=== PATIENT | female | born 1935 | race Caucasian/White ===

== ENCOUNTER 2016-11-18 18:20 | Inpatient (IN) | payer MEDICARE, OTHER ==
[~2016-11-18] VITALS: Ht 154.9 cm; Wt 56.1 kg
[2016-11-18] VITALS (7 sets, daily range): BP systolic 102–154; BP diastolic 55–86; PULSE 100–127; RESP 20–30; TEMP 97.9; O2SAT 93–100
[~2016-11-18 18:20] MED LIST: ADVA100A INH; ESTR2TAB PO; MULT-6 PO; PRESCAP5 PO; TUMS500C CHEW
--- NOTE | 2016-11-18 18:30 | PD ---
HPI Chief Complaint: shortness of breath Time Seen by Provider: 18:27 Travel History International Travel<30 days: No Contact w/Intl Traveler<30days: No History of Present Illness HPI This is a patient who has a history of COPD who is not on oxygen who presents to the emergency department with increasing shortness of breath that started abruptly this afternoon. She says she's had several exacerbations over the past year and last her she had [place]. She denies any recent fevers, chills or cold symptoms. She denies any chest pain. She is emphatic that if she were to deteriorate she would not want to be on a breathing machine or resuscitated and would want to be let naturally if she were to deteriorate. PFSH Past Medical History Cancer: No Diabetes: No Glaucoma: No Hepatitis: No Hiatal Hernia: No Hypertension: No Thyroid Disease: No Past Surgical History Abdominal Surgery: Yes (AILYN. 2000) Cardiac Surgery: No Ear Surgery: No Endocrine Surgery: No Eye Surgery: Yes (CAT. LEFT EYE) Genitourinary Surgery: No Gynecologic Surgery: Yes (HYSTERECTOMY 1974) Oral Surgery: Yes (TONSILLS) Pacemaker: No Thoracic Surgery: Yes (RIGHT BREAST BX) Social History Alcohol Use: Yes (2 DRINKS A WEEK [facility]) Tobacco Use: Yes (QUIT 1992) Allergies-Medications (Allergen,Severity, Reaction): Coded Allergies: Codeine (Verified Allergy, Severe, NAUSEA/VOMITTING, 11/18/16) Darvon (Verified Allergy, Severe, N/V, 11/18/16) Demerol (Verified Allergy, Severe, N/V, 11/18/16) Flagyl (Verified Allergy, Severe, RASH, 11/18/16) Reported Meds & Prescriptions Reported Meds & Active Scripts Active Reported Tums (Calcium Carbonate (Antacid)) 500 Mg Chew 500 Mg CHEW PRN Estradiol 2 Mg Tab 2 Mg PO DAILY Advair Diskus Inh (Fluticasone-Salmeterol Inh) 100-50 Mcg/Blist Aer 1 Puff INH BID Rinse mouth after use. Preservision Areds 2 (Multiple Vitamins W/ Minerals) 1 Cap 1 Cap PO DAILY Centrum (Multiple Vitamins W/ Minerals) 1 Tab 1 Tab PO DAILY Review of Systems Except as stated in HPI: all other systems reviewed are Neg Physical Exam Narrative GENERAL: Severe respiratory distress. SKIN: Diaphoretic HEAD: Atraumatic. Normocephalic. EYES: Pupils equal and round. No injection or drainage. ENT: Moist mucous membranes NECK: Trachea midline. CARDIOVASCULAR: Regular rate and rhythm. No murmur appreciated. RESPIRATORY: Diminished air movement bilaterally, accessory muscle use, increased work of breathing GASTROINTESTINAL: Abdomen soft, non-tender, nondistended. MUSCULOSKELETAL: No obvious deformities. NEUROLOGICAL: Awake and alert. No obvious cranial nerve deficits. Moving All extremities. PSYCHIATRIC: Appropriate mood and affect; insight and judgment normal. Data Data Last Documented VS Vital Signs Date Time Temp Pulse Resp B/P Pulse Ox O2 Delivery O2 Flow Rate FiO2 11/18/16 18:35 28 98 BiPAP 45 11/18/16 18:20 97.9 127 154/86 Orders Complete Blood Count With Diff (11/18/16 18:25) Basic Metabolic Panel (Bmp) (11/18/16 18:25) Ckmb (Isoenzyme) Profile (11/18/16 18:25) Troponin I (11/18/16 18:25) Prothrombin Time / Inr (Pt) (11/18/16 18:25) Act Partial Throm Time (Ptt) (11/18/16 18:25) Magnesium (Mg) (11/18/16 18:25) Chest, Single Ap (11/18/16 18:25) Iv Access Insert/Monitor (11/18/16 18:25) Ecg Monitoring (11/18/16 18:25) Oxygen Administration (11/18/16 18:25) Oximetry (11/18/16 18:25) Albuterol-Ipratropium Neb (Duoneb Neb) (11/18/16 18:30) Arterial Blood Gas (Abg) (11/18/16 ) D-Dimer (11/18/16 18:36) B-Type Natriuretic Peptide (11/18/16 18:36) MDM Medical Decision Making Medical Screen Exam Complete: Yes Emergency Medical Condition: Yes Interpretation(s) Afebrile, tachycardic, tachypneic, hypertensive Differential Diagnosis COPD exacerbation, pneumonia, congestive heart failure, pulmonary embolism Narrative Course This is a 80-year-old female with a history of COPD who parents to the emergency department in severe respiratory distress. She is using accessory muscles, unable to breathe, diaphoretic in extremis. She refuses to be intubated. She was laced on a monitor and an IV was established. BiPAP was initiated. Patient had impressive improvement within first 15 minutes on BiPAP and was able to speak much more comfortably. Labs are pending. Patient should be admitted for respiratory management pending diagnostic studies. She did receive methylprednisolone and serial DuoNeb's in route with EMS. Critical Care Narrative Aggregate critical care time was 35 minutes. Time to perform other separately billable procedures was not included in the critical care time. My time did not include minutes spent treating any other patients simultaneously or on activities that did not directly contribute to the patient's treatment. The services I provided to this patient were to treat and/or prevent clinically significant deterioration that could result in: Disability, I provided critical care services requiring my management, as noted below: Chart data review, documentation time, medication orders and management, vital sign assessments/reviewing monitor data, ordering and reviewing lab tests, ordering and interpreting/reviewing x-rays and diagnostic studies, care of the patient and discussion of the patient with the admitting physicians. Mary Beth Benavides MD Nov 18, 2016 18:30
[2016-11-18 18:57] LABS: AUTOMATED NEUTROPHIL # 33.7 TH/MM3 (1.8-7.7); BASOPHIL # 0.2 TH/MM3 (0-0.2); BASOPHIL % 0.4 % (0.0-2.0); EOSINOPHIL # 0.1 TH/MM3 (0-0.4); EOSINOPHIL % 0.3 % (0.0-4.0); HEMATOCRIT 37.8 % (35.0-46.0); MEAN CELL VOLUME 61.9 FL (80.0-100.0); MEAN CORPUSCULAR HEMOGLOBIN 19.2 PG (27.0-34.0); MEAN CORPUSCULAR HGB CONC 31.1 % (32.0-36.0); MONO % 6.5 % (0.0-8.0); NEUT % 78.8 % (16.0-70.0); PLATELET COUNT 467 TH/MM3 (150-450); RED CELL DISTRIBUTION WIDTH 17.3 % (11.6-17.2); WHITE BLOOD COUNT 42.7 TH/MM3 (4.0-11.0)
[2016-11-18] MEDS: RESP: ALBUTEROL 2.5 MG/IPRATROPIUM 0.5 MG NEB (SCH) INH (19:02)
[2016-11-18 19:06] LABS: APTT (PATIENT) 26.2 SEC (24.3-30.1); PROTHROMBIN TIME - PATIENT 11.4 SEC (9.8-11.6)
--- NOTE | 2016-11-18 19:09 | RADRPT ---
EXAM DATE/TIME: 11/18/2016 18:46 [facility] COMPARISON: No previous studies available for comparison. INDICATIONS : Shortness of breath for 6 hours MEDICAL HISTORY : Chronic obstructive pulmonary disease. Asthma SURGICAL HISTORY : None. ENCOUNTER: Initial ACUITY: 1 day PAIN SCORE: 0/10 LOCATION: Bilateral chest FINDINGS: The lungs are clear without infiltrate, nodule, or mass. There is no appreciable pleural effusion fo r technique. Heart and mediastinum are unremarkable. CONCLUSION: No acute cardiopulmonary disease. Anuj Stoddard MD on November 18, 2016 at 19:07 Board Certified Radiologist. This report was verified electronically.
[2016-11-18] MEDS ORDERED: ADVA100A INH (19:22)
[2016-11-18] MEDS ORDERED: PRESCAP5 PO (19:24)
[2016-11-18 19:25] LABS: HEMO FLAGS AUTO DIFF
[2016-11-18 19:25] LABS: BLOOD GAS BASE EXCESS -3.9 mmol/L (-2-2); BLOOD GAS CARBOXYHEMOGLOBIN 1.9 % (0-4); BLOOD GAS HCO3 20 mmol/L (22-26); BLOOD GAS METHEMOGLOBIN 1.8 % (0-2); BLOOD GAS O2 HGB SATURATION 96 % (90-100); BLOOD GAS OXYGEN CONTENT 16.6 Vol % (12.0-20.0); BLOOD GAS PCO2 34 mmHg (38-42); BLOOD GAS PO2 249 mmHG (61-120); BLOOD GAS TOTAL HGB 11.9 G/DL (12.0-16.0); TEMP CORR TO 98.6
[2016-11-18 19:26] LABS: CRITICAL VALUE NO; DRAW SITE LT RADIAL; FIO2 45 %; NUMBER OF ARTERIAL PUNCTURES 1; OXYGEN DEVICE BiPAP; STAT YES; ULNAR PULSE PRESENT; VENT SETTINGS IPAP 10 EPAP 5
[2016-11-18 19:37] LABS: BICARBONATE 17.1 MEQ/L (21.0-32.0); MAGNESIUM 2.3 MG/DL (1.5-2.5); POTASSIUM 5.1 MEQ/L (3.5-5.1)
[2016-11-18 19:53] LABS: OVALOCYTES 1+ (NORMAL); PLATELET ESTIMATE SMEAR HIGH (NORMAL); PLATELET MORPHOLOGY NORMAL (NORMAL); SCAN/DIFF AUTO DIFF CONFIRMED; TEARDROP RBCS 1+ (NORMAL)
[2016-11-18 19:55] LABS: CKMB 15.7 NG/ML (0.5-3.6)
[2016-11-18] MEDS ORDERED: HEPARIN SODIUM - IV 10,000 UNITS/10 ML VIAL IV ONE (20:00)
[2016-11-18] MEDS ORDERED: ASPIRIN 81 MG CHEW TAB CHEW ONE (20:00)
[2016-11-18] MEDS: HEPARIN-D5W INJ 250 ML IV SCH (20:29)
[2016-11-18] MEDS ORDERED: IOHEXOL 350 MG/ML 10 ML VIAL (for RAD DIAG) IV ONE (21:53)
--- NOTE | 2016-11-18 22:04 | RADRPT ---
EXAM DATE/TIME: 11/18/2016 21:24 [facility] COMPARISON: No previous studies available for comparison. INDICATIONS : Increase shortness of breath for two days. IV CONTRAST: 45 cc Omnipaque 350 (iohexol) IV RADIATION DOSE: 6.48 CTDIvol (mGy) MEDICAL HISTORY : Chronic obstructive pulmonary disease. SURGICAL HISTORY : Cholecystectomy. Hysterectomy. ENCOUNTER: Initial ACUITY: 2 days PAIN SCALE: 0/10 LOCATION: chest TECHNIQUE: Volumetric scanning of the chest was performed using a pulmonary embolism protocol MIP images were re constructed. Using automated exposure control and adjustment of the mA and/or kV according to patien t size, radiation dose was kept as low as reasonably achievable to obtain optimal diagnostic quality images. FINDINGS: There is no evidence for PE for technique. Approximate 8mm nodule is present in the right upper lobe posterolaterally. There is also parenchymal infiltrate in the right middle lobe, lingula and rig ht lower lobe most likely inflammatory. There is no pleural effusion or pathological adenopathy. CONCLUSION: Right upper lobe nodule and bilateral infiltrates most likely inflammatory, repeat noncontrast chest CT is suggested in 2-3 months after appropriate clinical therapy. Anuj Stoddard MD on November 18, 2016 at 21:59 Board Certified Radiologist. This report was verified electronically.
[2016-11-18] MEDS ORDERED: AZITHROMYCIN INJ 500 MG in SODIUM CHLOR 0.9% 250 ML INJ 250 ML IV ONE (22:15)
[2016-11-18] MEDS ORDERED: CEFEPIME INJ 1,000 MG in SODIUM CHLORIDE 0.9% INJ 100 ML IV ONE (22:15)
[2016-11-18] MEDS ORDERED: ACETAMINOPHEN 325 MG TAB PO PRN (22:15)
[2016-11-18] MEDS ORDERED: ONDANSETRON HCL 4 MG/2 ML VIAL IV PUSH PRN (22:15)
[2016-11-18] MEDS ORDERED: FUROSEMIDE 20 MG/2 ML VIAL IV PUSH ONE (23:00)
--- NOTE | 2016-11-18 23:01 | PD ---
Physical Exam Narrative Patient signed out to me by Dr. Benavides to follow-up labs and CTA of the chest. Please see her note for complete history and physical. Briefly patient is an 80 -year-old female who comes in in respiratory distress. She is started on BiPAP given DuoNeb nebs and Solu-Medrol with marked improvement of her breathing. Labs were sent and there was concern for PE due to sudden onset of symptoms. Currently patient is breathing comfortably on BiPAP. Data Data Last Documented VS Vital Signs Date Time Temp Pulse Resp B/P Pulse Ox O2 Delivery O2 Flow Rate FiO2 11/18/16 22:04 100 20 102/55 97 Nasal Cannula 3 11/18/16 21:20 100 11/18/16 18:20 97.9 Orders Complete Blood Count With Diff (11/18/16 18:25) Basic Metabolic Panel (Bmp) (11/18/16 18:25) Ckmb (Isoenzyme) Profile (11/18/16 18:25) Troponin I (11/18/16 18:25) Prothrombin Time / Inr (Pt) (11/18/16 18:25) Act Partial Throm Time (Ptt) (11/18/16 18:25) Magnesium (Mg) (11/18/16 18:25) Chest, Single Ap (11/18/16 18:25) Iv Access Insert/Monitor (11/18/16 18:25) Ecg Monitoring (11/18/16 18:25) Oxygen Administration (11/18/16 18:25) Oximetry (11/18/16 18:25) Albuterol-Ipratropium Neb (Duoneb Neb) (11/18/16 18:30) Arterial Blood Gas (Abg) (11/18/16 ) D-Dimer (11/18/16 18:36) B-Type Natriuretic Peptide (11/18/16 18:36) Code Status (11/18/16 19:01) CKMB (11/18/16 18:30) CKMB% (11/18/16 18:30) Electrocardiogram (11/18/16 ) Aspirin Chew (Aspirin Chew) (11/18/16 20:00) Heparin Infusion BOB.Q1H (11/18/16 19:47) Heparin Inj (Heparin Inj) (11/18/16 20:00) Heparin Inj (Heparin Inj) (11/19/16 02:00) Heparin Inj (Heparin Inj) (11/19/16 02:00) Heparin-D5w Inj (Heparin-D5w Inj) (11/18/16 20:00) Cbc No Diff, Includes Plts (11/21/16 06:00) Occult Blood (Hemoccult) Stool (11/18/16 19:47) Ct Pulmonary Angiogram (11/18/16 19:55) Urinalysis - C+S If Indicated (11/18/16 20:36) Iohexol 350 Inj (Omnipaque 350 Inj) (11/18/16 21:53) Act Partial Throm Time (Ptt) (11/19/16 00:30) Cefepime Inj (Maxipime Inj) (11/18/16 22:15) Azithromycin Inj (Zithromax Inj) (11/18/16 22:15) Admit Order (Ed Use Only) (11/18/16 ) Labs Laboratory Tests Test 11/18/16 11/18/16 18:30 19:17 White Blood Count 42.7 TH/MM3 Red Blood Count 6.10 MIL/MM3 Hemoglobin 11.7 GM/DL Hematocrit 37.8 % Mean Corpuscular Volume 61.9 FL Mean Corpuscular Hemoglobin 19.2 PG Mean Corpuscular Hemoglobin 31.1 % Concent Red Cell Distribution Width 17.3 % Platelet Count 467 TH/MM3 Mean Platelet Volume 9.2 FL Neutrophils (%) (Auto) 78.8 % Lymphocytes (%) (Auto) 14.0 % Monocytes (%) (Auto) 6.5 % Eosinophils (%) (Auto) 0.3 % Basophils (%) (Auto) 0.4 % Neutrophils # (Auto) 33.7 TH/MM3 Lymphocytes # (Auto) 6.0 TH/MM3 Monocytes # (Auto) 2.8 TH/MM3 Eosinophils # (Auto) 0.1 TH/MM3 Basophils # (Auto) 0.2 TH/MM3 CBC Comment AUTO DIFF Differential Comment AUTO DIFF CONFIRMED Platelet Estimate HIGH Platelet Morphology Comment NORMAL Tear Drop Cells 1+ Ovalocytes 1+ Prothrombin Time 11.4 SEC Prothromb Time International 1.0 RATIO Ratio Activated Partial 26.2 SEC Thromboplast Time D-Dimer Quantitative (PE/DVT) 1.13 MG/L FEU Sodium Level 132 MEQ/L Potassium Level 5.1 MEQ/L Chloride Level 100 MEQ/L Carbon Dioxide Level 17.1 MEQ/L Anion Gap 15 MEQ/L Blood Urea Nitrogen 19 MG/DL Creatinine 1.23 MG/DL Estimat Glomerular Filtration 42 ML/MIN Rate Random Glucose 269 MG/DL Calcium Level 8.9 MG/DL Magnesium Level 2.3 MG/DL Total Creatine Kinase 242 U/L Creatine Kinase MB 15.7 NG/ML Creatine Kinase MB % 6.5 % Troponin I 2.25 NG/ML B-Type Natriuretic Peptide 1617 PG/ML Blood Gas Puncture Site LT RADIAL Blood Gas Patient Temperature 98.6 Blood Gas HCO3 20 mmol/L Blood Gas Base Excess -3.9 mmol/L Blood Gas Oxygen Saturation 96 % Arterial Blood pH 7.40 Arterial Blood Partial 34 mmHg Pressure CO2 Arterial Blood Partial 249 mmHG Pressure O2 Arterial Blood Oxygen Content 16.6 Vol % Arterial Blood 1.9 % Carboxyhemoglobin Arterial Blood Methemoglobin 1.8 % Blood Gas Hemoglobin 11.9 G/DL Oxygen Delivery Device BiPAP Blood Gas Ventilator Setting IPAP 10 EPAP 5 Blood Gas Inspired Oxygen 45 % MDM Supervised Visit with DAHLIA: No Narrative Course Labs showed elevated troponin of 2.25. D-dimer is elevated as well. Patient given aspirin, ECG performed shows no ST elevation or depression. Patient started on heparin. CTA of the chest performed shows no PE, there is a small pulmonary nodule. Patient is informed of the results advised to follow-up with repeat imaging in 2 -3 months. There is some inflammatory changes present on the CT and her lungs, but no defined infiltrate. Patient has a white count of 42. She states she was not having any infectious symptoms prior to today. She never had any fever. Covered with antibiotics. I spoke with Dr. Chin of cardiology regarding the patient. He recommends giving 20 of Lasix. Patient's blood pressure is 102 systolic. We'll hold any nitroglycerin currently. Patient admitted for further management. 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 She says she does not have a bag end sewer. She says she had an echo during this time in [place] and was told it was normal. She has never had a cardiac catheter. Diagnosis Primary Impression: Respiratory distress Additional Impression: NSTEMI (non-ST elevated myocardial infarction) Admitting Information Admitting Physician Requests: Admit Kourtney Banerjee MD Nov 18, 2016 23:00
--- NOTE | 2016-11-18 23:05 | HHI.HP ---
[facility] Service [facility] Primary Care Physician Brian Grande MD Admission Diagnosis NSTEMI Diagnoses: (1) NSTEMI (non-ST elevated myocardial infarction) Diagnosis: Principal (2) Pneumonia Chief Complaint: shortness of breath Travel History International Travel<30 Days: No Contact w/Intl Traveler <30 Da: No Traveled to Known Affected Are: No Sepsis Criteria SIRS Criteria (2 or more): Heart rate over 90, WBC > 53439, < 4000 or > 10% bands Sepsis Criteria (SIRS+source): Infect source susp/known Severe Sepsis (+one): Lactate >2 History of Present Illness patient is a 80 y/o female with history of COPD who presented to ER with sob. she says that her sob started yesterday and gradually got worse. she's not coughing. she denies any fever or chills.she says that she had some generalized chest pain which she relates to her difficulty breathing. she was initially placed on BiPaP - however she was later on switched to oxygen via N/c but she was still in some respiratory distress - she was placed back on BiPaP.she had some nausea earlier which has resolved. she had diaphoretic episodes earlier in the morning. at the time of my evaluation she was still on BiPaP but she says that her sob has much improved. she says that she had a stress test about two years ago and she was diagnosed with ' broken heart syndrome'. Review of Systems Constitutional: COMPLAINS OF: Diaphoretic episodes, DENIES: Fever, Weight loss , Chills, Night Sweats Eyes: DENIES: Blurred vision, Diplopia, Vision loss, Double Vision Ears, nose, mouth, throat: DENIES: Tinnitus, Vertigo, Throat pain, Epistaxis Respiratory: COMPLAINS OF: Shortness of breath, DENIES: Apneas, Cough, Snoring , Wheezing, Hemoptysis, Sputum production Cardiovascular: COMPLAINS OF: Chest pain, DENIES: Palpitations, Syncope, Dyspnea on Exertion, PND, Lower Extremity Edema, Orthopnea, Claudication Gastrointestinal: COMPLAINS OF: Nausea, DENIES: Abdominal pain, Black stools, Bloody stools, Constipation, Diarrhea, Vomiting, Difficulty Swallowing, Anorexia Genitourinary: DENIES: Urinary frequency, Urgency, Hematuria, Dysuria Musculoskeletal: DENIES: Joint pain, Muscle aches, Stiffness, Joint Swelling Integumentary: DENIES: Rash Neurologic: DENIES: Abnormal gait, Headache, Localized weakness, Paresthesias, Seizures, Speech Problems, Tremor, Poor Balance Psychiatric: DENIES: Anxiety, Confusion, Mood changes, Depression, Hallucinations, Agitation, Suicidal Ideation, Homicidal Ideation, Delusions Past Family Social History Past Medical History COPD broken heart syndrome Past Surgical History tonsillectomy cholecystectomy Reported Medications Tums (Calcium Carbonate (Antacid)) 500 Mg Chew 500 Mg CHEW PRN Estradiol 2 Mg Tab 2 Mg PO DAILY Advair Diskus Inh (Fluticasone-Salmeterol Inh) 100-50 Mcg/Blist Aer 1 Puff INH BID Rinse mouth after use. Preservision Areds 2 (Multiple Vitamins W/ Minerals) 1 Cap 1 Cap PO DAILY Centrum (Multiple Vitamins W/ Minerals) 1 Tab 1 Tab PO DAILY Allergies: Coded Allergies: Codeine (Verified Allergy, Severe, NAUSEA/VOMITTING, 11/18/16) Darvon (Verified Allergy, Severe, N/V, 11/18/16) Demerol (Verified Allergy, Severe, N/V, 11/18/16) Flagyl (Verified Allergy, Severe, RASH, 11/18/16) Active Ordered Medications Current Medications Albuterol/ Ipratropium (Duoneb Neb) 1 ampule Q15M INH Last administered on at 19:02; Start 11/18/16 at 18:30; Stop 11/18/16 at 19:01; Status DC Aspirin (Aspirin Chew) 324 mg ONCE ONCE CHEW Last administered on 11/18/16at 20:58; Start 11/18/16 at 20:00; Stop 11/18/16 at 20:01; Status DC Heparin Sodium (Porcine) (Heparin Inj) 3,000 units ONCE ONCE IV Last administered on 11/18/16at 20:28; Start 11/18/16 at 20:00; Stop 11/18/16 at 20 :01; Status DC Heparin Sodium (Porcine) (Heparin Inj) 5,000 units UNSCH PRN IV APTT LESS THAN 25; Start 11/19/16 at 02:00 Heparin Sodium (Porcine) 2500 units 2,500 units UNSCH PRN IV APTT 25 TO 39; Start 11/19/16 at 02:00 Heparin Sodium/ Dextrose (Heparin-D5W Inj) 250 ml @ 0 mls/hr TITRATE IV Last administered on 11/18/16at 20:29; Start 11/18/16 at 20:00 Iohexol 45 ml 45 ml STK-MED ONCE IV Last administered on 11/18/16at 21:53; Start 11/18/16 at 21:53; Stop 11/18/16 at 21:54; Status DC Cefepime HCl 1000 mg/Sodium Chloride 100 ml @ 200 mls/hr ONCE ONCE IV Last administered on 11/18/16at 22:26; Start 11/18/16 at 22:15; Stop 11/18/16 at 22 :44; Status DC Azithromycin 500 mg/Sodium Chloride 250 ml @ 250 mls/hr ONCE ONCE IV ; Start 11/18/16 at 22:15; Stop 11/18/16 at 23:14 Cefepime HCl/ Sodium Chloride (Maxipime Inj/NS Inj) 100 ml @ 200 mls/hr Q8H IV ; Start 11/19/16 at 06:00 Albuterol/ Ipratropium (Duoneb Neb) 1 ampule Q4HR NEB PRN NEB SHORTNESS OF BREATH; Start 11/18/16 at 22:15 Ondansetron HCl (Zofran Inj) 4 mg Q8HR PRN IV PUSH NAUSEA; Start 11/18/16 at 22:15 Acetaminophen 650 mg 650 mg Q4H PRN PO FEVER; Start 11/18/16 at 22:15 Sodium Chloride (1/2 NS 1000 ml Inj) 1,000 ml @ 75 mls/hr [id number] IV ; Start 11/18/16 at 22:15 Furosemide (Lasix Inj) 20 mg ONCE ONCE IV PUSH ; Start 11/18/16 at 23:00; Stop 11/18/16 at 23:01; Status DC Family History not significant. Social History quit smoking years ago- drinks occasionally. Physical Exam Vital Signs Vital Signs Date Time Temp Pulse Resp B/P Pulse Ox O2 Delivery O2 Flow Rate FiO2 11/18/16 22:04 100 20 102/55 97 Nasal Cannula 3 11/18/16 19:26 109 20 114/59 99 BiPAP 45 11/18/16 18:35 28 98 BiPAP 45 11/18/16 18:31 98 BiPAP 45 11/18/16 18:31 28 98 BiPAP 45 11/18/16 18:25 98 45 11/18/16 18:20 97.9 127 30 154/86 93 Physical Exam GENERAL: on BiPaP - SKIN: No rashes, ecchymoses or lesions. Cool and dry. HEAD: Atraumatic. Normocephalic. No temporal or scalp tenderness. EYES: Pupils equal round and reactive. Extraocular motions intact. No scleral icterus. No injection or drainage. ENT: Nose without bleeding, purulent drainage or septal hematoma. Throat without erythema, tonsillar hypertrophy or exudate. Uvula midline. Airway patent. NECK: Trachea midline. No JVD or lymphadenopathy. Supple, nontender, no meningeal signs. CARDIOVASCULAR: Regular rate and rhythm without murmurs, gallops, or rubs. RESPIRATORY: diminished air entry bilaterally. GASTROINTESTINAL: Abdomen soft, non-tender, nondistended. No hepato-splenomegaly , or palpable masses. No guarding. MUSCULOSKELETAL: Extremities without clubbing, cyanosis, or edema. No joint tenderness, effusion, or edema noted. No calf tenderness. Negative Homans sign bilaterally. NEUROLOGICAL: Awake and alert. Cranial nerves II through XII intact. Motor and sensory grossly within normal limits. Five out of 5 muscle strength in all muscle groups. Normal speech. Laboratory Laboratory Tests Test 11/18/16 11/18/16 18:30 19:17 White Blood Count 42.7 Red Blood Count 6.10 Hemoglobin 11.7 Hematocrit 37.8 Mean Corpuscular Volume 61.9 Mean Corpuscular Hemoglobin 19.2 Mean Corpuscular Hemoglobin 31.1 Concent Red Cell Distribution Width 17.3 Platelet Count 467 Mean Platelet Volume 9.2 Neutrophils (%) (Auto) 78.8 Lymphocytes (%) (Auto) 14.0 Monocytes (%) (Auto) 6.5 Eosinophils (%) (Auto) 0.3 Basophils (%) (Auto) 0.4 Neutrophils # (Auto) 33.7 Lymphocytes # (Auto) 6.0 Monocytes # (Auto) 2.8 Eosinophils # (Auto) 0.1 Basophils # (Auto) 0.2 CBC Comment AUTO DIFF Differential Comment AUTO DIFF CONFIRMED Platelet Estimate HIGH Platelet Morphology Comment NORMAL Tear Drop Cells 1+ Ovalocytes 1+ Prothrombin Time 11.4 Prothromb Time International 1.0 Ratio Activated Partial 26.2 Thromboplast Time D-Dimer Quantitative (PE/DVT) 1.13 Sodium Level 132 Potassium Level 5.1 Chloride Level 100 Carbon Dioxide Level 17.1 Anion Gap 15 Blood Urea Nitrogen 19 Creatinine 1.23 Estimat Glomerular Filtration 42 Rate Random Glucose 269 Calcium Level 8.9 Magnesium Level 2.3 Total Creatine Kinase 242 Creatine Kinase MB 15.7 Creatine Kinase MB % 6.5 Troponin I 2.25 B-Type Natriuretic Peptide 1617 Blood Gas Puncture Site LT RADIAL Blood Gas Patient Temperature 98.6 Blood Gas HCO3 20 Blood Gas Base Excess -3.9 Blood Gas Oxygen Saturation 96 Arterial Blood pH 7.40 Arterial Blood Partial 34 Pressure CO2 Arterial Blood Partial 249 Pressure O2 Arterial Blood Oxygen Content 16.6 Arterial Blood 1.9 Carboxyhemoglobin Arterial Blood Methemoglobin 1.8 Blood Gas Hemoglobin 11.9 Oxygen Delivery Device BiPAP Blood Gas Ventilator Setting IPAP 10 EPAP 5 Blood Gas Inspired Oxygen 45 Result Diagram: 11/18/16182911/18/161829 Imaging Last Impressions CT Angiography 11/18/161954 Signed Impressions: Service Date/Time: Friday, November 18, 2016 21:24 - CONCLUSION: Right upper lobe nodule and bilateral infiltrates most likely inflammatory, repeat noncontrast chest CT is suggested in 2-3 months after appropriate clinical therapy. Anuj Stoddard MD Chest X-Ray 11/18/[id number] Signed Impressions: Service Date/Time: Friday, November 18, 2016 18:46 - CONCLUSION: No acute cardiopulmonary disease. Anuj Stoddard MD EKG; sinus tachycardia with T inversion in lateral leads Assessment and Plan Assessment and Plan A/P - acute hypoxemic respiratory failure due to pneumonia/ COPD exacerbation currently on BiPaP; switched to N/C but still with respiratory distress- start IV steroids and neb treatment- will consult pulmonary -severe sepsis ( tachycardia/ leukocytosis) due to pneumonia start broad spectrum Iv antibiotics- follow the cultures- CBC in am- consult ID -NSTEMI; started on heparin drip- continue aspirin- trend the enzymes- consult cardiology and check echo- lipid panel of note the patient says that she was diagnosed with broken heart syndrome two years ago. -hyperglycemia- with no history of diabetes accu-check with SSI- check A1c -acute kidney injury; start gentle IV hydration- monitor renal function- BMP in am -DVT prophylaxis; on heparin drip -DNR status per my discussion with the patient. Discussed Condition With ER physician and the patient. Physician Certification 2 Midnight Certification Type: Admission for Inpatient Services Order for Inpatient Services The services are ordered in accordance with Medicare regulations or non- Medicare payer requirements, as applicable. In the case of services not specified as inpatient-only, they are appropriately provided as inpatient services in accordance with the 2-midnight benchmark. Estimated LOS (days): 3 days is the estimated time the patient will need to remain in the hospital, assuming treatment plan goals are met and no additional complications. Post-Hospital Plan: Home Problem Qualifiers (1) Pneumonia: Qualified Code: J18.9 - Pneumonia of both lungs due to infectious organism, unspecified part of lung Ryan Yi MD Nov 18, 2016 23:05
[2016-11-18] MEDS: SODIUM CHLOR 0.45% 1000 ML INJ 1,000 ML IV SCH (23:16)
[2016-11-18] MEDS ORDERED: RESP: ALBUTEROL 1.25 MG/3 ML NEB (PRN) NEB (23:30)
[2016-11-18] MEDS ORDERED: Vancomycin Consult Pharmacy 1 EA OTHER SCH (23:30)
[2016-11-18] MEDS ORDERED: DEXTROSE 50% IN WATER 50 ML VIAL(D50) IV PUSH PRN (23:30)
[2016-11-18] MEDS ORDERED: GLUCAGON 1 MG/ML VIAL OTHER PRN (23:30)
[2016-11-18] MEDS ORDERED: VANCOMYCIN INJ 1,000 MG in SODIUM CHLOR 0.9% 250 ML INJ 250 ML IV ONE (23:30)
[2016-11-19] VITALS (28 sets, daily range): BP systolic 89–123; BP diastolic 56–88; PULSE 76–107; RESP 18–28; TEMP 97.5–98.2; O2SAT 96–99
[2016-11-19] MEDS: methylPREDNISolone SOD SUCC 40 MG/1 ML VIAL IV PUSH SCH ×4 (00:03→20:53)
[2016-11-19 00:31] LABS: BLOOD, URINE MOD (NEG); COMMENT (UR) CULT NOT INDICATED; CULTURE IF INDICATED CULT NOT INDICATED; GLUCOSE,URINE NEG (NEG); HYALINE CAST, URINE 6 /lpf (RARE); KETONE, URINE NEG (NEG); MUCUS URINE FEW /lpf (OCC); NITRITE,URINE NEG (NEG); PH, URINE 5.5 (5.0-8.5); SQUAMOUS EPITHELIAL CELL URINE <1 /hpf (0-5); URINE COLOR YELLOW (YELLW/STRAW)
[2016-11-19] MEDS ORDERED: HEPARIN SODIUM - IV 10,000 UNITS/10 ML VIAL IV PRN ×2 (02:00)
[2016-11-19] MEDS: CEFEPIME INJ 1,000 MG in SODIUM CHLORIDE 0.9% INJ 100 ML IV SCH ×3 (05:50→20:54)
[2016-11-19] MEDS: INSULIN ASPART SUPPLEMENTAL SCALE SQ SCH ×4 (06:05→20:59)
[2016-11-19 06:51] LABS: CREATINE KINASE 203 U/L (26-192); HDL CHOLESTEROL 78.4 MG/DL (40.0-60.0); LDL CHOLESTEROL 68 MG/DL (0-99)
[2016-11-19 07:12] LABS: CKMB 18.2 NG/ML (0.5-3.6)
--- NOTE | 2016-11-19 07:44 | EKG ---
Date Performed: 11/18/2016 Time Performed: 19:52:06 PTAGE: 80 years EKG: SINUS TACHYCARDIA MODERATE T-WAVE ABNORMALITY, CONSIDER ANTEROLATERAL ISCHEMIA ABNORMAL ECG PREVIOUS TRACING : 11/06/2010 13.33 Compared to previous tracing, heart rate has increased, lat eral T wave inversion is now evident. DOCTOR: Dani Loza Interpretating Date/Time 11/19/2016 07:44:16
[2016-11-19 07:56] LABS: HEMATOCRIT 34.6 % (35.0-46.0); MEAN CELL VOLUME 59.8 FL (80.0-100.0); MEAN CORPUSCULAR HEMOGLOBIN 19.2 PG (27.0-34.0); MEAN CORPUSCULAR HGB CONC 32.1 % (32.0-36.0); PLATELET COUNT 271 TH/MM3 (150-450); RED BLOOD COUNT 5.78 MIL/MM3 (4.00-5.30); RED CELL DISTRIBUTION WIDTH 17.3 % (11.6-17.2); WHITE BLOOD COUNT 22.3 TH/MM3 (4.0-11.0)
[2016-11-19 07:58] LABS: HEMO FLAGS AUTO DIFF
[2016-11-19 08:36] LABS: BICARBONATE 22.2 MEQ/L (21.0-32.0); POTASSIUM 4.3 MEQ/L (3.5-5.1)
--- NOTE | 2016-11-19 08:41 | HHI.PR ---
Subjective Remarks Patient feels much better. Currently sattign well on nasal canula. Says she doesn't have chest pain or pressure. However she feels sob. Says she thinks is copd exacerbation as she had exacerbation 2 years ago. Says she doesn't have a cardiology doctor as her heart is not affected. No n/v/d/c. No diaphoresis, palpitations, lightheadedness, LE edema. Says she feels slightly improved than yesterday. At baseline she can do her daily activities without any problems. Objective Vitals Vital Signs Date Time Temp Pulse Resp B/P Pulse Ox O2 Delivery O2 Flow Rate FiO2 11/19/16 07:00 98 Nasal Cannula 2.00 11/19/16 07:00 97.5 92 20 107/68 98 11/19/16 07:00 91 11/19/16 06:04 89 11/19/16 05:00 87 11/19/16 04:00 96 11/19/16 03:46 97.9 92 18 89/56 97 11/19/16 03:00 84 11/19/16 02:00 94 11/19/16 01:43 99 11/19/16 01:00 98 11/19/16 01:00 96 Nasal Cannula 2.00 11/19/16 00:50 97.7 98 18 97/65 98 11/19/16 00:50 98 11/19/16 00:33 99 18 123/88 99 Nasal Cannula 4 11/18/16 22:35 98 45 11/18/16 22:04 100 20 102/55 97 Nasal Cannula 3 11/18/16 21:20 100 15.00 100 11/18/16 19:26 109 20 114/59 99 BiPAP 45 11/18/16 18:35 28 98 BiPAP 45 11/18/16 18:31 98 BiPAP 45 11/18/16 18:31 28 98 BiPAP 45 11/18/16 18:25 98 45 11/18/16 18:20 97.9 127 30 154/86 93 I/O 11/18/16 11/18/16 11/18/16 11/19/16 11/19/16 11/19/16 07:00 15:00 23:00 07:00 15:00 23:00 Intake Total 380 ml Output Total 300 ml Balance 80 ml Intake Oral 100 ml IV Total 280 ml Output Urine Total 300 ml Result Diagram: 11/19/16 0745 11/18/16 [address] Angiography 11/18/161954 Signed Impressions: Service Date/Time: Friday, November 18, 2016 21:24 - CONCLUSION: Right upper lobe nodule and bilateral infiltrates most likely inflammatory, repeat noncontrast chest CT is suggested in 2-3 months after appropriate clinical therapy. Anuj Stoddard MD Chest X-Ray 11/18/161824 Signed Impressions: Service Date/Time: Friday, November 18, 2016 18:46 - CONCLUSION: No acute cardiopulmonary disease. Anuj Stoddard MD Objective Remarks GENERAL: 80 yo female, on BiPaP - SKIN: No rashes, ecchymoses or lesions. Cool and dry. HEAD: Atraumatic. Normocephalic. No temporal or scalp tenderness. EYES: Pupils equal round and reactive. Extraocular motions intact. No scleral icterus. No injection or drainage. ENT: Nose without bleeding, purulent drainage or septal hematoma. Throat without erythema, tonsillar hypertrophy or exudate. Uvula midline. Airway patent. NECK: Trachea midline. No JVD or lymphadenopathy. Supple, nontender, no meningeal signs. CARDIOVASCULAR: Regular rate and rhythm without murmurs, gallops, or rubs. RESPIRATORY: diminished air entry bilaterally. GASTROINTESTINAL: Abdomen soft, non-tender, nondistended. No hepato-splenomegaly , or palpable masses. No guarding. MUSCULOSKELETAL: Extremities without clubbing, cyanosis, or edema. No joint tenderness, effusion, or edema noted. No calf tenderness. Negative Homans sign bilaterally. NEUROLOGICAL: Awake and alert. Cranial nerves II through XII intact. Motor and sensory grossly within normal limits. Five out of 5 muscle strength in all muscle groups. Normal speech. A/P Problem List: (1) NSTEMI (non-ST elevated myocardial infarction) ICD Code: I21.4 Status: Acute (2) Pneumonia ICD Code: J18.9 Status: Acute Assessment and Plan Acute hypoxemic respiratory failure due to pneumonia/ COPD exacerbation currently on BiPaP; switched to N/C but still with respiratory distress- start IV steroids and neb treatment- will consult pulmonary Severe sepsis ( tachycardia/ leukocytosis) due to pneumonia start broad spectrum Iv antibiotics- follow the cultures- CBC in am- consult ID NSTEMI: on heparin drip- continue aspirin- enzymes trending up, likely ischemic event. Patient does not complain of chest pain/pressure/nausea/diaphoresis. Consult cardiology, seen by Dr Dawkins appreciate recommendations. Recommends cardiac cath, plan for cardiac cath 11/20, NPO overnight. Check 2D ECHO- lipid panel Of note the patient says that she was diagnosed with broken heart syndrome two years ago. Hyperglycemia- with no history of diabetes Accu-check with SSI- check A1c Acute kidney injury: on gentle IV hydration- monitor renal function- BMP in am DVT prophylaxis: on heparin drip Code status: DNR Discussed Condition With patient, nurse Problem Qualifiers (1) Pneumonia: Qualified Code: J18.9 - Pneumonia of both lungs due to infectious organism, unspecified part of lung Lucila Inman MD Nov 19, 2016 08:41
[2016-11-19 09:04] LABS: BANDS 2 % (0-6); NEUTROPHIL # MANUAL DIFF 20.7 TH/MM3 (1.8-7.7); PLATELET ESTIMATE SMEAR NORMAL (NORMAL); POLYS (SEG NEUTROPHILS) 91 % (16-70); SCAN/DIFF FINAL DIFF MANUAL; WBC DIFF SAMPLE 100
[2016-11-19 09:05] LABS: KERATOCYTES OCC (NORMAL); OVALOCYTES 1+ (NORMAL); PLATELET MORPHOLOGY ENLARGED (NORMAL); TEARDROP RBCS 1+ (NORMAL)
[2016-11-19] MEDS: ASPIRIN 81 MG CHEW TAB CHEW SCH (09:13)
[2016-11-19 09:34] LABS: APTT (PATIENT) 36.5 SEC (24.3-30.1)
[2016-11-19] MEDS: BUDESONIDE-FORMOTEROL 80/4.5 MCG INHALER INH SCH ×2 (09:38→20:55)
[2016-11-19 09:41] LABS: CKMB 20.7 NG/ML (0.5-3.6)
--- NOTE | 2016-11-19 10:45 | MB ---
cc: EFRAÍN GUTIERREZ MD DATE OF CONSULTATION November 19, 2016 REASON FOR CONSULTATION Non-STEMI. HISTORY OF PRESENT ILLNESS The patient is a very pleasant 80-year-old woman with no prior cardiac history but who has COPD with a history of several exacerbations, though she has not smoked in quite a long time. She presented with acute shortness of breath and was admitted for a COPD exacerbation. Her cardiac enzymes were notably elevated and thus I was consulted. She denies any chest pain now or previously, just shortness of breath with the COPD exacerbations. No lightheadedness or syncope. PAST MEDICAL HISTORY COPD. I see a chart history of "broken heart syndrome" but the patient denied any cardiac history to me. CURRENT MEDICATIONS Aspirin 325 mg daily. Cefepime. ALLERGIES CODEINE DARVON. DEMEROL. FLAGYL. PHYSICAL EXAMINATION Vital Signs: Afebrile, pulse 95, respiratory rate 20, BP 107/68, sating 98% on 2 liters. General: A pleasant woman in no distress. Neck: Very decreased breath sounds in all jaimes. Cardiovascular: Distant heart sounds due to COPD. No murmurs appreciated. Abdomen: Benign. Extremities: No edema. LABORATORY DATA Sodium 139, potassium 4.3, chloride 104, bicarb 22.2, BUN 19, creatinine 1.02, glucose 140. Troponin 3.01. CK-MB percentage is elevated at 9. BNP is 1617. Echocardiogram is pending. Chest x-ray shows no acute cardiopulmonary disease. EKG shows sinus rhythm with anterolateral changes consistent with ischemia. IMPRESSION AND RECOMMENDATIONS 1. Non-STEMI. Though the patient did not have typical chest pain, her cardiac enzymes and EKG do appear ischemic. I discussed this with the patient and do believe a cardiac catheterization is reasonable to define her coronary anatomy. I do not think she would be a CABG candidate but perhaps PCI might be appropriate. The patient agrees with this plan. She will be kept n.p.o. past midnight and I will ask for my partners to perform the heart cath tomorrow. Currently she is on heparin, aspirin. Her beta thao is being held due to low blood pressures and if she does have coronary disease, a statin will likely be required so I will add that as a low-dose at this time. Thank you again for the opportunity to participate in this patient's care. MD KELSIE Villanueva /10:14 AM /10:35 AM
[2016-11-19 11:15] LABS: LACTIC ACID GHOST NOT REPORTABLE
[2016-11-19 12:21] LABS: HEMOGLOBIN A1a 1.3 %; HEMOGLOBIN A1b 0.9 %; HEMOGLOBIN Ao 84.2 %; HEMOGLOBIN F 1.4 %; HEMOGLOBIN LA1C 2.5 %; HEMOGLOBIN P3 5.5 %
[2016-11-19] MEDS: SODIUM CHLOR 0.45% 1000 ML INJ 1,000 ML IV SCH (15:08)
--- NOTE | 2016-11-19 15:50 | MB ---
cc: ORLIN ORDAZ M.D. DATE OF CONSULTATION: 11/19/2016 REASON FOR CONSULTATION COPD and exacerbation. HISTORY OF PRESENT ILLNESS Mrs. Springer is a 80-year-old female who was admitted with increasing shortness of breath, chest wheeze, unresolved with p.r.n. albuterol and b.i.d. Advair which she uses on a regular basis at home. The patient was noted to have elevated cardiac enzymes as well. Dr. Dawkins had seen the patient in cardiac evaluation and a cardiac cath is planned. PAST MEDICAL HISTORY Her past medical history is that of COPD. No diabetes, no hypertension, no heart disease. MEDICATIONS Medications at home include: 1. Aspirin. 2. Advair twice daily. 3. P.r.n. Albuterol. 4. Presently on cefepime. ALLERGIES CODEINE, DARVON, DEMEROL AND FLAGYL. FAMILY HISTORY Noncontributory. REVIEW OF SYSTEMS 12-point review of systems as per HPI, past history otherwise negative. PHYSICAL EXAMINATION GENERAL: The patient is alert. VITAL SIGNS: Temperature is 97.5, pulse 90, respirations 20, blood pressure 107/70, oxygen saturation 99% on 2 liters oxygen nasal cannula. HEENT: Exam unremarkable. Eyes without icterus. NECK: Without adenopathy or thyroid enlargement. Central trachea. CHEST: No dullness to percussion. Few rhonchi on auscultation. CARDIAC: PMI distant. S1-S2 audible. No murmur or rub. ABDOMEN: Lax, bowel sounds audible. EXTREMITIES: No clubbing, cyanosis or edema. IMAGING STUDIES CT angiogram with a right upper lobe nodule and bilateral infiltrates, question pneumonia. The chest x-ray was unremarkable. LABORATORY DATA White count 22,000, was 42,000 upon presentation, hemoglobin 11, hematocrit 34, platelets 271,000, sodium 139, potassium 4.3. Troponin level at 3 which is elevated. ABG pH 740, pCO2 34, pO2 249 and 45% inspired oxygen fraction. IMPRESSION 1. COPD and exacerbation. 2. Question coronary artery disease. 3. Possible pneumonia by CT chest. PLAN 1. Continue antibiotic therapy. 2. Bronchodilator therapy. 3. Cardiac evaluation and treatment per Dr. Dawkins. I do thank you for asking me to partake in Mrs. Springer' care. MD JESSICA Armijo/ANDREA /1:12 PM /3:32 PM
[2016-11-19 17:31] LABS: APTT (PATIENT) 39.7 SEC (24.3-30.1)
--- NOTE | 2016-11-19 19:27 | PD.ID.CON ---
History of Present Illness Service ID Consult Requested By Dr Read Reason for Consult sepsis, PNA Primary Care Physician Brian Grande MD Diagnoses: History of Present Illness 80 yo F with COPD admitted with SOB x 1 day, no cough, fever or chills. and chest pain Pt was placed on BiPaP on/off Her cardiac enzymes were elevated and she was diagnosed with NSEMI She is going for a cardiac cath tomorrow am She also has lactic acidemia on presentation > 4, markdely elevated BNP and her WBC was 42 K She told me that her WBC "usualy runs high but not that high" She also told me that she was never diagnosed with a condition that would explain her chronically elevated WBC Her CXR was negative but CT showed b/l infiltrates along with a pulm nodule inflammatory in nature UA was unremarkable Review of Systems Other as per history of present illness, the rest of 12point review is negative Past Family Social History Allergies: Coded Allergies: Codeine (Verified Allergy, Severe, NAUSEA/VOMITTING, 11/18/16) Darvon (Verified Allergy, Severe, N/V, 11/18/16) Demerol (Verified Allergy, Severe, N/V, 11/18/16) Flagyl (Verified Allergy, Severe, RASH, 11/18/16) Past Medical History COPD DJD lumbar spina cataracts Past Surgical History tonsillectomy cholecystectomy Active Ordered Medications Medications where reviewed in EMR Antibiotics Include: vanco cefepime azithro -stopped Family History Non-Contributory. Social History remote Tobacco. Quit 1991 occasional ETOH. No Illicit Drugs. Physical Exam Vital Signs Vital Signs Date Time Temp Pulse Resp B/P Pulse Ox O2 Delivery O2 Flow Rate FiO2 11/19/16 18:00 107 11/19/16 17:00 98 11/19/16 16:00 99 11/19/16 15:00 95 11/19/16 15:00 98.2 93 22 120/68 99 11/19/16 14:00 97 11/19/16 13:00 93 11/19/16 12:00 101 11/19/16 11:00 98.0 91 18 102/62 99 11/19/16 11:00 94 11/19/16 10:00 89 11/19/16 09:00 95 11/19/16 08:00 88 11/19/16 07:00 98 Nasal Cannula 2.00 11/19/16 07:00 97.5 92 20 107/68 98 11/19/16 07:00 91 11/19/16 06:04 89 11/19/16 05:00 87 11/19/16 04:00 96 11/19/16 03:46 97.9 92 18 89/56 97 11/19/16 03:00 84 11/19/16 02:00 94 11/19/16 01:43 99 11/19/16 01:00 98 11/19/16 01:00 96 Nasal Cannula 2.00 11/19/16 00:50 97.7 98 18 97/65 98 11/19/16 00:50 98 11/19/16 00:33 99 18 123/88 99 Nasal Cannula 4 11/18/16 22:35 98 45 11/18/16 22:04 100 20 102/55 97 Nasal Cannula 3 11/18/16 22:04 97 Nasal Cannula 3.00 11/18/16 21:20 100 15.00 100 11/18/16 19:26 109 20 114/59 99 BiPAP 45 Physical Exam CONSTITUTIONAL/GENERAL: This is an adequately nourished patient, in mild resp distress. TUBES/LINES/DRAINS: SKIN: No jaundice, rashes, or lesions. Skin temperature appropriate. Not diaphoretic. HEAD: Atraumatic. Normocephalic. EYES: Pupils equal and round and reactive. Extraocular motions intact. No scleral icterus. No injection or drainage. Fundi not examined. ENT: Hearing grossly normal. Nose without bleeding or purulent drainage. Throat without visible erythema, exudates, masses, or lesions. NECK: Trachea midline. Supple, nontender. CARDIOVASCULAR: Regular rate and rhythm without murmurs, gallops, or rubs. No JVD. Peripheral pulses symmetric. RESPIRATORY/CHEST: Symmetric, somewhat labored respirations. + some accessory muscle use. Clear to auscultation. Breath sounds equally diminishe d bilaterally. No wheezes , rales, or rhonchi. GASTROINTESTINAL: Abdomen soft, non-tender, nondistended. No hepato-splenomegaly , or palpable masses. No guarding. Bowel sounds present. GENITOURINARY: Without palpable bladder distension. MUSCULOSKELETAL: Extremities without clubbing, cyanosis, or edema. No joint tenderness or effusion noted. No calf tenderness. No mottling or clubbing. LYMPHATICS: No palpable cervical or supraclavicular adenopathy. NEUROLOGICAL: Awake and alert. Motor and sensory grossly within normal limits. Follows commands. Cognitively sharp. Moves all extremities. PSYCHIATRIC: No obvious anxiety/depression. no apparent hallucinations or other psychotic thought process. Laboratory Laboratory Tests Test 11/18/16 11/18/16 11/19/16 11/19/16 19:17 23:20 00:14 00:35 Blood Gas Puncture Site LT RADIAL Blood Gas Patient Temperature 98.6 Blood Gas HCO3 20 Blood Gas Base Excess -3.9 Blood Gas Oxygen Saturation 96 Arterial Blood pH 7.40 Arterial Blood Partial 34 Pressure CO2 Arterial Blood Partial 249 Pressure O2 Arterial Blood Oxygen Content 16.6 Arterial Blood 1.9 Carboxyhemoglobin Arterial Blood Methemoglobin 1.8 Blood Gas Hemoglobin 11.9 Oxygen Delivery Device BiPAP Blood Gas Ventilator Setting IPAP 10 EPAP 5 Blood Gas Inspired Oxygen 45 Lactic Acid Level 4.3 Urine Color YELLOW Urine Turbidity CLEAR Urine pH 5.5 Urine Specific [place] 1.026 Urine Protein TRACE Urine Glucose (UA) NEG Urine Ketones NEG Urine Occult Blood MOD Urine Nitrite NEG Urine Bilirubin NEG Urine Urobilinogen LESS THAN 2.0 Urine Leukocyte Esterase NEG Urine RBC 11 Urine WBC LESS THAN 1 Urine Squamous Epithelial <1 Cells Urine Hyaline Casts 6 Urine Mucus FEW Microscopic Urinalysis Comment CULT NOT INDICATED Activated Partial 46.0 Thromboplast Time Troponin I 2.62 Test 11/19/16 11/19/16 11/19/16 11/19/16 05:02 07:45 09:15 12:36 Hemoglobin A1c 5.0 Total Creatine Kinase 203 230 Creatine Kinase MB 18.2 20.7 Creatine Kinase MB % 9.0 9.0 Triglycerides Level 113 Cholesterol Level 169 LDL Cholesterol 68 HDL Cholesterol 78.4 Cholesterol/HDL Ratio 2.15 White Blood Count 22.3 Red Blood Count 5.78 Hemoglobin 11.1 Hematocrit 34.6 Mean Corpuscular Volume 59.8 Mean Corpuscular Hemoglobin 19.2 Mean Corpuscular Hemoglobin 32.1 Concent Red Cell Distribution Width 17.3 Platelet Count 271 Mean Platelet Volume 8.6 Neutrophils (%) (Auto) Lymphocytes (%) (Auto) Monocytes (%) (Auto) Eosinophils (%) (Auto) Basophils (%) (Auto) Neutrophils # (Auto) Lymphocytes # (Auto) Monocytes # (Auto) Eosinophils # (Auto) Basophils # (Auto) CBC Comment AUTO DIFF Differential Total Cells 100 Counted Neutrophils % (Manual) 91 Band Neutrophils % 2 Lymphocytes % 6 Monocytes % 1 Neutrophils # (Manual) 20.7 Differential Comment FINAL DIFF MANUAL Platelet Estimate NORMAL Platelet Morphology Comment ENLARGED Tear Drop Cells 1+ Ovalocytes 1+ Keratocytes OCC Sodium Level 139 Potassium Level 4.3 Chloride Level 104 Carbon Dioxide Level 22.2 Anion Gap 13 Blood Urea Nitrogen 19 Creatinine 1.02 Estimat Glomerular Filtration 52 Rate Random Glucose 140 Calcium Level 8.3 Troponin I 3.01 Activated Partial 36.5 Thromboplast Time Lactic Acid Level 2.6 2.1 B-Type Natriuretic Peptide 1309 Test 11/19/16 16:25 Activated Partial 39.7 Thromboplast Time Result Diagram: 11/19/16 0745 11/19/[address] Angiography 11/18/161954 Signed Impressions: Service Date/Time: Friday, November 18, 2016 21:24 - CONCLUSION: Right upper lobe nodule and bilateral infiltrates most likely inflammatory, repeat noncontrast chest CT is suggested in 2-3 months after appropriate clinical therapy. Anuj Stoddard MD Chest X-Ray 11/18/161824 Signed Impressions: Service Date/Time: Friday, November 18, 2016 18:46 - CONCLUSION: No acute cardiopulmonary disease. Anuj Stoddard MD Assessment and Plan Assessment and Plan NSTEMI ? PNA Leukocytosis, severe: improved - multifactorial? - NSTEMI, sterroids, infx and some preexisting chronic leukocytosis COPD exacrbation -On high dose sterroids Lactic acedemia and suspected sepsis on presentation REC's: cont current abx for now - chk BC - chk sputum clx - restart azithro - further rec's to follow Eileen Tony MD Nov 19, 2016 19:27
[2016-11-19] MEDS: ATORVASTATIN 20 MG TAB PO SCH (20:55)
[2016-11-20] VITALS (25 sets, daily range): BP systolic 103–127; BP diastolic 63–84; PULSE 69–114; RESP 16–22; TEMP 97.8–98.3; O2SAT 97–99
[2016-11-20 00:44] LABS: APTT (PATIENT) 44.8 SEC (24.3-30.1)
[2016-11-20] MEDS: SODIUM CHLOR 0.45% 1000 ML INJ 1,000 ML IV SCH ×2 (00:55→07:37)
[2016-11-20] MEDS: CEFEPIME INJ 1,000 MG in SODIUM CHLORIDE 0.9% INJ 100 ML IV SCH ×3 (05:39→22:33)
[2016-11-20] MEDS: methylPREDNISolone SOD SUCC 40 MG/1 ML VIAL IV PUSH SCH (05:39)
[2016-11-20] MEDS: INSULIN ASPART SUPPLEMENTAL SCALE SQ SCH ×4 (07:00→21:00)
[2016-11-20 07:09] LABS: BASOPHIL % 0.1 % (0.0-2.0); HEMATOCRIT 32.2 % (35.0-46.0); LYMPH % 5.9 % (9.0-44.0); LYMPHOCYTE # 1.8 TH/MM3 (1.0-4.8); MEAN CORPUSCULAR HEMOGLOBIN 19.1 PG (27.0-34.0); MEAN CORPUSCULAR HGB CONC 31.8 % (32.0-36.0); PLATELET COUNT 288 TH/MM3 (150-450); RED BLOOD COUNT 5.37 MIL/MM3 (4.00-5.30); RED CELL DISTRIBUTION WIDTH 17.3 % (11.6-17.2); WHITE BLOOD COUNT 30.4 TH/MM3 (4.0-11.0)
[2016-11-20 07:22] LABS: ALKALINE PHOSPHATASE 68 U/L (45-117); ALT (GPT) 30 U/L (10-53); ANION GAP 12 MEQ/L (5-15); AST (GOT) 46 U/L (15-37); BICARBONATE 23.5 MEQ/L (21.0-32.0); BLOOD UREA NITROGEN 21 MG/DL (7-18); CHLORIDE 105 MEQ/L (98-107); GLOMERULAR FILTRATION RATE 62 ML/MIN (>89); MAGNESIUM 2.3 MG/DL (1.5-2.5); POTASSIUM 3.8 MEQ/L (3.5-5.1); SODIUM (NA) 140 MEQ/L (136-145); TOTAL BILIRUBIN ADULT 0.5 MG/DL (0.2-1.0)
[2016-11-20 07:36] LABS: HEMO FLAGS AUTO DIFF
[2016-11-20] MEDS: ASPIRIN 81 MG CHEW TAB CHEW SCH (07:40)
[2016-11-20] MEDS: BUDESONIDE-FORMOTEROL 80/4.5 MCG INHALER INH SCH ×2 (07:41→21:00)
[2016-11-20] MEDS: AZITHROMYCIN 250 MG TAB PO SCH (07:41)
[2016-11-20] MEDS: HEPARIN-D5W INJ 250 ML IV SCH (07:51)
--- NOTE | 2016-11-20 07:53 | HHI.PR ---
Subjective Remarks Patient is with sob. She reports sob is getting worse. Scant cough, nonproductive. No fevers or chills. No chest pain, palpitations. No n/v/d/c. Objective Vitals Vital Signs Date Time Temp Pulse Resp B/P Pulse Ox O2 Delivery O2 Flow Rate FiO2 11/20/16 06:00 86 11/20/16 05:22 86 11/20/16 04:00 89 11/20/16 03:00 83 11/20/16 03:00 97.8 83 22 104/63 98 11/20/16 02:09 69 11/20/16 01:03 89 11/20/16 00:19 99 11/19/16 23:00 97.6 91 28 109/78 99 11/19/16 23:00 91 11/19/16 22:00 76 11/19/16 21:28 97 Nasal Cannula 2.00 11/19/16 21:00 78 11/19/16 20:00 78 11/19/16 19:30 97 11/19/16 19:30 98 Nasal Cannula 2.00 11/19/16 19:30 97.7 97 20 112/83 97 11/19/16 18:00 107 11/19/16 17:00 98 11/19/16 16:00 99 11/19/16 15:00 95 11/19/16 15:00 98.2 93 22 120/68 99 11/19/16 14:00 97 11/19/16 13:00 93 11/19/16 12:00 101 11/19/16 11:00 98.0 91 18 102/62 99 11/19/16 11:00 94 11/19/16 10:00 89 11/19/16 09:00 95 11/19/16 08:00 88 I/O 11/19/16 11/19/16 11/19/16 11/20/16 11/20/16 11/20/16 06:59 14:59 22:59 06:59 14:59 22:59 Intake Total 380 ml 1551 ml 1460 ml Output Total 300 ml 900 ml 1550 ml Balance 80 ml 651 ml -90 ml Intake Oral 100 ml 480 ml 480 ml IV Total 280 ml 1071 ml 980 ml Output Urine Total 300 ml 900 ml 1550 ml # Bowel Movements 0 Result Diagram: 11/20/16 0445 11/20/16 [address] Angiography 11/18/161954 Signed Impressions: Service Date/Time: Friday, November 18, 2016 21:24 - CONCLUSION: Right upper lobe nodule and bilateral infiltrates most likely inflammatory, repeat noncontrast chest CT is suggested in 2-3 months after appropriate clinical therapy. Anuj Stoddard MD Chest X-Ray 11/18/16 182 Signed Impressions: Service Date/Time: Friday, November 18, 2016 18:46 - CONCLUSION: No acute cardiopulmonary disease. Anuj Stoddard MD Objective Remarks GENERAL: 80 yo female, on BiPaP - SKIN: No rashes, ecchymoses or lesions. Cool and dry. HEAD: Atraumatic. Normocephalic. No temporal or scalp tenderness. EYES: Pupils equal round and reactive. Extraocular motions intact. No scleral icterus. No injection or drainage. ENT: Nose without bleeding, purulent drainage or septal hematoma. Throat without erythema, tonsillar hypertrophy or exudate. Uvula midline. Airway patent. NECK: Trachea midline. No JVD or lymphadenopathy. Supple, nontender, no meningeal signs. CARDIOVASCULAR: Regular rate and rhythm without murmurs, gallops, or rubs. RESPIRATORY: diminished air entry bilaterally. GASTROINTESTINAL: Abdomen soft, non-tender, nondistended. No hepato-splenomegaly , or palpable masses. No guarding. MUSCULOSKELETAL: Extremities without clubbing, cyanosis, or edema. No joint tenderness, effusion, or edema noted. No calf tenderness. Negative Homans sign bilaterally. NEUROLOGICAL: Awake and alert. Cranial nerves II through XII intact. Motor and sensory grossly within normal limits. Five out of 5 muscle strength in all muscle groups. Normal speech. Procedures ECHO: The estimated ejection fraction was in the range of 25% to 30%. Akinesis of the apical myocardium. - Aortic valve: Mild to moderate regurgitation. - Mitral valve: Mild to moderate regurgitation. - Tricuspid valve: Moderate regurgitation. - Pulmonary arteries: Systolic pressure was severely increased. PA peak pressure: 87mm Hg (S). A/P Problem List: (1) NSTEMI (non-ST elevated myocardial infarction) ICD Code: I21.4 Status: Acute (2) Pneumonia ICD Code: J18.9 Status: Acute Assessment and Plan Acute hypoxemic respiratory failure due to pneumonia/ COPD exacerbation was on BiPAP; switched to N/C but still with respiratory distress- started IV steroids and neb treatment, taper down as tolerated Consult pulmonary Severe sepsis ( tachycardia/ leukocytosis) due to pneumonia on admission start broad spectrum Iv antibiotics, ass azithromycin- follow the cultures- CBC in am- consult ID, appreciate recommendations NSTEMI: on heparin drip- continue aspirin- enzymes trending up, likely ischemic event. Patient does not complain of chest pain/pressure/nausea/diaphoresis. Consult cardiology, seen by Dr Dwakins appreciate recommendations. Recommends cardiac cath, plan for cardiac cath 11/[address] Duque Check 2D ECHO- reviewed. EF of 25-30 % severely reduced EF. Mild to moderate MV , TV and AV regurgitation. Check lipid panel Of note the patient says that she was diagnosed with broken heart syndrome two years ago. Start ACEI , BB, statin, lasix, spironolactone Systolic CHF. Mild to moderate MV, TV and AV regurgitation. BNP elevated in 1600. EF of 25-30 % severely reduced EF. Hyperglycemia- with no history of diabetes Accu-check with SSI- check A1c Acute kidney injury: on gentle IV hydration- monitor renal function- BMP in am DVT prophylaxis: on heparin drip Code status: DNR Discussed Condition With patient, nurse Problem Qualifiers (1) Pneumonia: Qualified Code: J18.9 - Pneumonia of both lungs due to infectious organism, unspecified part of lung Lucila Inman MD Nov 20, 2016 07:52
[2016-11-20 08:02] LABS: APTT (PATIENT) 41.5 SEC (24.3-30.1)
[2016-11-20 08:18] LABS: NEUTROPHIL # MANUAL DIFF 27.1 TH/MM3 (1.8-7.7); POLYS (SEG NEUTROPHILS) 89 % (16-70); WBC DIFF SAMPLE 100
[2016-11-20 08:19] LABS: PLATELET ESTIMATE SMEAR NORMAL (NORMAL); PLATELET MORPHOLOGY NORMAL (NORMAL); SCAN/DIFF FINAL DIFF MANUAL
[2016-11-20 08:20] LABS: ACANTHOCYTES OCC (NORMAL); KERATOCYTES OCC (NORMAL); OVALOCYTES 1+ (NORMAL)
[2016-11-20] MEDS: VANCOMYCIN 1,000 MG/NS 250 ML IV SCH ×2 (11:36)
--- NOTE | 2016-11-20 11:40 | EC ---
Study Study Date:11/19/2016 STUDY CONCLUSIONS SUMMARY - Left ventricle: The cavity size was normal. Wall thickness was normal. Systolic function was severely reduced. The estimated ejection fraction was in the range of 25% to 30%. Akinesis of the apical myocardium. - Aortic valve: Mild to moderate regurgitation. - Mitral valve: Mild to moderate regurgitation. - Tricuspid valve: Moderate regurgitation. - Pulmonary arteries: Systolic pressure was severely increased. PA peak pressure: 87mm Hg (S). If LV function is below 40, please consider prescribing an ACEI or ARB or document rationale for non-use. PROCEDURE DATA STUDY STATUS: Elective. Procedure: Transthoracic echocardiography. Image quality was good. Scanning was performed from the parasternal, apical, and subcostal acoustic windows. Study completion: The patient tolerated the procedure well. Transthoracic echocardiography. M-mode, complete 2D, complete spectral Doppler, and color Doppler. Patient status: Inpatient. CARDIAC ANATOMY LEFT VENTRICLE: The cavity size was normal. Wall thickness was normal. Systolic function was severely reduced. The estimated ejection fraction was in the range of 25% to 30%. Regional wall motion abnormalities: Akinesis of the apical myocardium. AORTIC VALVE: Trileaflet; mildly thickened, mildly calcified leaflets. Doppler: Transvalvular velocity was within the normal range. There was no stenosis. Mild to moderate regurgitation. AORTA: Aortic root: The aortic root was normal in size. MITRAL VALVE: Structurally normal valve. Doppler: Transvalvular velocity was within the normal range. There was no evidence for stenosis. Mild to moderate regurgitation. Mean gradient: 2mm Hg (D). Peak gradient: 4mm Hg (D). LEFT ATRIUM: The atrium was normal in size. RIGHT VENTRICLE: The cavity size was normal. Wall thickness was normal. PULMONIC VALVE: Doppler: Transvalvular velocity was within the normal range. There was no evidence for stenosis. No regurgitation. TRICUSPID VALVE: Structurally normal valve. Doppler: Transvalvular velocity was within the normal range. Moderate regurgitation. PULMONARY ARTERY: The main pulmonary artery was normal-sized. Systolic pressure was severely increased. RIGHT ATRIUM: The atrium was normal in size. PERICARDIUM: There was no pericardial effusion. SYSTEMIC VEINS: Inferior vena cava: The vessel was normal in size. BASIC MEASUREMENTS ADULT Normal Left ventricle LV internal dimension, ED, chordal level, *38.3 mm 43-52 PLAX LV posterior wall thickness, ED 5.55 mm IVS/LVPW ratio, ED *1.39 <1.3 Ventricular septum Septal thickness, ED 7.73 mm Aortic valve Leaflet separation 17 mm 15-26 Left atrium Anterior-posterior dimension 31 mm Right ventricle RV internal dimension, ED, PLAX 20.1 mm 19-38 BASIC MEASUREMENTS ADULT Normal Aortic valve Leaflet separation 17 mm 15-26 Aorta Root diameter, ED 27 mm 20-37 DOPPLER MEASUREMENTS ADULT Normal Main pulmonary artery Pressure, S *87 mm Hg =30 Aortic valve VTI, S 32.2 cm Mitral valve Peak E-wave velocity 92.8 cm/s Peak A-wave velocity 31.6 cm/s Mean velocity, D 64 cm/s Mean gradient, D 2 mm Hg Peak gradient, D 4 mm Hg Peak E/A ratio 2.9 Maximal regurgitant velocity 438 cm/s Tricuspid valve Regurgitant peak velocity 415 cm/s Peak RV-RA gradient, S 69 mm Hg Maximal regurgitant velocity 415 cm/s Systemic veins Estimated CVP 10 mm Hg Right ventricle RV pressure, S *87 mm Hg <30 LEGEND: Mean values are shown as u=mean value. Asterisk (*) selby values outside specified normal range. Prepared and signed by Porfirio Dawkins [id number]
[2016-11-20] MEDS ORDERED: PILL SPLITTER OTHER PRN (14:45)
[2016-11-20] MEDS ORDERED: VANCOMYCIN 1,000 MG/NS 250 ML IV SCH ×2 (15:00)
[2016-11-20] MEDS: FUROSEMIDE 20 MG/2 ML VIAL IV PUSH SCH (15:03)
[2016-11-20] MEDS ORDERED: IOHEXOL 350 MG/ML 50 ML BTL (for Cath Lab) OTHER ONE (17:03)
[2016-11-20] MEDS: RESP: ALBUTEROL 2.5 MG/IPRATROPIUM 0.5 MG NEB (PRN) NEB (17:10)
[2016-11-20] MEDS ORDERED: HEPARIN-NS/PF INJ 500 ML ONE ×2 (17:11→17:25)
--- NOTE | 2016-11-20 17:18 | PD.CARD.PN ---
Subjective Subjective Remarks no overnight events still complaints of SOB Objective Medications Current Medications Medications (Trade) Dose Ordered Sig/Cici Route Start Time Stop Time Status Last Admin (Heparin Inj) 5,000 units UNSCH PRN IV 11/19/16 02:00 Heparin Sodium (Porcine) 2500 units 2,500 units UNSCH PRN IV 11/19/16 02:00 Heparin Sodium/ Dextrose 250 ml @ 0 mls/hr TITRATE IV 11/18/16 20:00 11/20/16 07:51 (Maxipime Inj/NS Inj) 100 ml @ 200 mls/hr Q8H IV 11/19/16 06:00 11/20/16 15:04 (Zofran Inj) 4 mg Q8HR PRN IV PUSH 11/18/16 22:15 Acetaminophen 650 mg 650 mg Q4H PRN PO 11/18/16 22:15 (Vancomycin Consult Pharmacy) 0 ml @ 0 mls/hr UNSCH OTHER 11/18/16 23:30 (D50w (Vial) Inj) 25 ml UNSCH PRN IV PUSH 11/18/16 23:30 (Glucagon Inj) 1 mg UNSCH PRN OTHER 11/18/16 23:30 (Symbicort 80-4.5 Mcg Inh) 2 puff BID INH 11/19/16 09:00 11/20/16 07:41 (Aspirin Chew) 324 mg DAILY CHEW 11/19/16 09:00 11/20/16 07:40 (Lipitor) 20 mg HS PO 11/19/16 21:00 11/19/16 20:55 Miscellaneous Information SPECIFIC LAB TO BE ... ONCE ONCE XX 11/22/16 11:45 11/22/16 11:46 Azithromycin 500 mg 500 mg DAILY PO 11/20/16 09:00 11/20/16 07:41 (Vancomycin Inj/ NS 250 ml Inj) 250 ml @ 250 mls/hr Q24H IV 11/20/16 12:00 11/20/16 11:36 (Deltasone) 40 mg DAILY PO 11/21/16 09:00 (Coreg) 3.125 mg Q12HR PO 11/20/16 21:00 (Prinivil) 2.5 mg DAILY PO 11/21/16 09:00 (Lasix Inj) 20 mg DAILY IV PUSH 11/20/16 14:30 11/20/16 15:03 (Aldactone) 25 mg DAILY PO 11/21/16 09:00 (Pill Splitter) 1 ea UNSCH PRN OTHER 11/20/16 14:45 Vital Signs / I&O Vital Signs Date Time Temp Pulse Resp B/P Pulse Ox O2 Delivery O2 Flow Rate FiO2 11/20/16 15:53 99 Nasal Cannula 2.00 11/20/16 15:00 99 11/20/16 15:00 98.2 99 18 124/73 98 11/20/16 14:30 97 11/20/16 13:00 113 11/20/16 12:00 99 11/20/16 11:00 98.2 99 17 119/74 99 11/20/16 11:00 96 11/20/16 10:00 96 11/20/16 09:00 114 11/20/16 08:00 94 11/20/16 07:00 97.8 99 22 124/72 97 11/20/16 07:00 97 Nasal Cannula 2.00 11/20/16 07:00 92 11/20/16 06:00 86 11/20/16 05:22 86 11/20/16 04:00 89 11/20/16 03:00 83 11/20/16 03:00 97.8 83 22 104/63 98 11/20/16 02:09 69 11/20/16 01:03 89 11/20/16 00:19 99 11/19/16 23:00 97.6 91 28 109/78 99 11/19/16 23:00 91 11/19/16 22:00 76 11/19/16 21:28 97 Nasal Cannula 2.00 11/19/16 21:00 78 11/19/16 20:00 78 11/19/16 19:30 97 11/19/16 19:30 98 Nasal Cannula 2.00 11/19/16 19:30 97.7 97 20 112/83 97 11/19/16 18:00 107 I/O 11/19/16 11/19/16 11/19/16 11/20/16 11/20/16 11/20/16 07:00 15:00 23:00 07:00 15:00 23:00 Intake Total 380 ml 1551 ml 1460 ml Output Total 300 ml 900 ml 1550 ml Balance 80 ml 651 ml -90 ml Intake Oral 100 ml 480 ml 480 ml IV Total 280 ml 1071 ml 980 ml Output Urine Total 300 ml 900 ml 1550 ml # Bowel Movements 0 Physical Exam GENERAL: Well-nourished, well-developed patient. SKIN: Warm and dry. HEAD: Normocephalic. EYES: No scleral icterus. No injection or drainage. NECK: Supple, trachea midline. No JVD or lymphadenopathy. CARDIOVASCULAR: Regular rate and rhythm without murmurs, gallops, or rubs. GASTROINTESTINAL: Abdomen soft, non-tender, nondistended. EXTREMITIES: No cyanosis, or edema. NEUROLOGICAL: Awake, alert, and oriented x 3. Non-focal. Laboratory Laboratory Tests Test 11/20/16 11/20/16 11/20/16 00:00 04:45 07:27 Activated Partial 44.8 SEC 41.5 SEC Thromboplast Time White Blood Count 30.4 TH/MM3 Red Blood Count 5.37 MIL/MM3 Hemoglobin 10.3 GM/DL Hematocrit 32.2 % Mean Corpuscular Volume 60.0 FL Mean Corpuscular Hemoglobin 19.1 PG Mean Corpuscular Hemoglobin 31.8 % Concent Red Cell Distribution Width 17.3 % Platelet Count 288 TH/MM3 Mean Platelet Volume 8.8 FL Neutrophils (%) (Auto) 89.0 % Lymphocytes (%) (Auto) 5.9 % Monocytes (%) (Auto) 5.0 % Eosinophils (%) (Auto) 0.0 % Basophils (%) (Auto) 0.1 % Neutrophils # (Auto) 27.0 TH/MM3 Lymphocytes # (Auto) 1.8 TH/MM3 Monocytes # (Auto) 1.5 TH/MM3 Eosinophils # (Auto) 0.0 TH/MM3 Basophils # (Auto) 0.0 TH/MM3 CBC Comment AUTO DIFF Differential Total Cells 100 Counted Neutrophils % (Manual) 89 % Lymphocytes % 5 % Monocytes % 6 % Neutrophils # (Manual) 27.1 TH/MM3 Differential Comment FINAL DIFF MANUAL Platelet Estimate NORMAL Platelet Morphology Comment NORMAL Basophilic Stippling FAINT Ovalocytes 1+ Acanthocytes OCC Keratocytes OCC Sodium Level 140 MEQ/L Potassium Level 3.8 MEQ/L Chloride Level 105 MEQ/L Carbon Dioxide Level 23.5 MEQ/L Anion Gap 12 MEQ/L Blood Urea Nitrogen 21 MG/DL Creatinine 0.87 MG/DL Estimat Glomerular Filtration 62 ML/MIN Rate Random Glucose 98 MG/DL Calcium Level 8.2 MG/DL Magnesium Level 2.3 MG/DL Total Bilirubin 0.5 MG/DL Aspartate Amino Transf 46 U/L (AST/SGOT) Alanine Aminotransferase 30 U/L (ALT/SGPT) Alkaline Phosphatase 68 U/L Total Protein 6.6 GM/DL Albumin 3.4 GM/DL Assessment and Plan Problem List: (1) NSTEMI (non-ST elevated myocardial infarction) Assessment and Plan: keep npo for LHC +/- PCI today (2) Respiratory distress (3) Pneumonia Problem Qualifiers (1) Pneumonia: Qualified Code: J18.9 - Pneumonia of both lungs due to infectious organism, unspecified part of lung Tj Reynolds MD Nov 20, 2016 17:18
[2016-11-20] MEDS ORDERED: MIDAZOLAM HCL 2 MG/2 ML VIAL ONE (17:26)
[2016-11-20] MEDS ORDERED: ONDANSETRON HCL 4 MG/2 ML VIAL IV PRN (17:45)
[2016-11-20] MEDS ORDERED: ATROPINE SULFATE 1 MG/ML VIAL IV PRN (17:45)
[2016-11-20] MEDS ORDERED: MISC INFORMATION XX ONE (17:45)
[2016-11-20] MEDS ORDERED: SODIUM CHLORIDE 0.9% FLUSH 5 ML FLUSH IVF PRN (17:45)
--- NOTE | 2016-11-20 18:21 | MA ---
cc: SIVA PONCE DATE 11/20/2016 DATE OF 1935 PROCEDURE PERFORMED 1. Left heart catheterization. 2. Selective right and left coronary angiography. 3. Left ventriculography. 4. Right common femoral artery angiography. INDICATION [id number] myocardial infarction. APPROACH Right common femoral artery. DESCRIPTION OF PROCEDURE Consent signed. The patient was brought into the cardiac cath in a fasting state. The right groin was prepped and draped in sterile fashion. Using 1% lidocaine and a micropuncture kit a 5-[place] sheath was inserted into the right common femoral artery. The right common femoral artery angiography was performed to confirm position of the sheath, then selective right and left coronary angiography was performed with a JR-4 and a JL-4 diagnostic catheters. Angiography was taken in multiple views. The left ventricle was crossed with an angled pigtail and left ventriculography was done followed by pullback. The patient tolerated the procedure well without complications. Estimated blood loss less than 50 mL. Total contrast used 30 mL. The right groin access site was closed with manual pressure. ANGIOGRAPHIC FINDINGS LEFT VENTRICULOGRAPHY The left ventricular pressure was 114/12 with an LVEDP of 21. The aortic pressure was 121/65 with an mean of 90. Left ventriculography revealed apical hypokinesis suggestive of takotsubo cardiomyopathy. ANGIOGRAPHIC RESULTS The left main is patent with nonobstructive CAD and is short. The LAD is a transapical vessel, is tortuous in its mid segment all the way to the apices. It has minimal luminal irregularities and CY III flow. The first diagonal is also tortuous, however, with no obstructive CAD and CY III flow. The left circumflex artery is patent with nonobstructive CAD. The first and second OM are patent. The right coronary artery is a dominant vessel, has minimal luminal irregularities and gives off the PDA which is patent. CONCLUSION 1. Normal coronary arteries. 2. Apical hypokinesis suggestive of stress mediated cardiomyopathy. RECOMMENDATIONS Continue aggressive medical management for CAD risk factors as well as for COPD. MD JANETTE Raya/MARCY /5:43 PM /6:02 PM ROZINA
--- NOTE | 2016-11-20 18:41 | HHI.IDPN ---
Subjective Subjective Remarks pt co SOB awaiting cath no fever Antibiotics azithromycin cefepime vanco Allergies: Coded Allergies: Codeine (Verified Allergy, Severe, NAUSEA/VOMITTING, 11/18/16) Darvon (Verified Allergy, Severe, N/V, 11/18/16) Demerol (Verified Allergy, Severe, N/V, 11/18/16) Flagyl (Verified Allergy, Severe, RASH, 11/18/16) Objective . Vital Signs Date Time Temp Pulse Resp B/P Pulse Ox O2 Delivery O2 Flow Rate FiO2 11/20/16 18:00 99 11/20/16 17:00 97 11/20/16 16:00 99 11/20/16 15:53 99 Nasal Cannula 2.00 11/20/16 15:00 99 11/20/16 15:00 98.2 99 18 124/73 98 11/20/16 14:30 97 11/20/16 13:00 113 11/20/16 12:00 99 11/20/16 11:00 98.2 99 17 119/74 99 11/20/16 11:00 96 11/20/16 10:00 96 11/20/16 09:00 114 11/20/16 08:00 94 11/20/16 07:00 97.8 99 22 124/72 97 11/20/16 07:00 97 Nasal Cannula 2.00 11/20/16 07:00 92 11/20/16 06:00 86 11/20/16 05:22 86 11/20/16 04:00 89 11/20/16 03:00 83 11/20/16 03:00 97.8 83 22 104/63 98 11/20/16 02:09 69 11/20/16 01:03 89 11/20/16 00:19 99 11/19/16 23:00 97.6 91 28 109/78 99 11/19/16 23:00 91 11/19/16 22:00 76 11/19/16 21:28 97 Nasal Cannula 2.00 11/19/16 21:00 78 11/19/16 20:00 78 11/19/16 19:30 97 11/19/16 19:30 98 Nasal Cannula 2.00 11/19/16 19:30 97.7 97 20 112/83 97 11/19/16 11/19/16 11/20/16 15:00 23:00 07:00 Intake Total 1551 ml 1460 ml Output Total 900 ml 1550 ml Balance 651 ml -90 ml Intake Oral 480 ml 480 ml IV Total 1071 ml 980 ml Output Urine Total 900 ml 1550 ml # Bowel Movements 0 . Laboratory Tests Test 11/19/16 11/20/16 07:45 04:45 White Blood Count 22.3 TH/MM3 30.4 TH/MM3 Red Blood Count 5.78 MIL/MM3 5.37 MIL/MM3 Hemoglobin 11.1 GM/DL 10.3 GM/DL Hematocrit 34.6 % 32.2 % Mean Corpuscular Volume 59.8 FL 60.0 FL Mean Corpuscular Hemoglobin 19.2 PG 19.1 PG Mean Corpuscular Hemoglobin 32.1 % 31.8 % Concent Red Cell Distribution Width 17.3 % 17.3 % Platelet Count 271 TH/MM3 288 TH/MM3 Mean Platelet Volume 8.6 FL 8.8 FL Neutrophils (%) (Auto) % 89.0 % Lymphocytes (%) (Auto) % 5.9 % Monocytes (%) (Auto) % 5.0 % Eosinophils (%) (Auto) % 0.0 % Basophils (%) (Auto) % 0.1 % Neutrophils # (Auto) TH/MM3 27.0 TH/MM3 Lymphocytes # (Auto) TH/MM3 1.8 TH/MM3 Monocytes # (Auto) TH/MM3 1.5 TH/MM3 Eosinophils # (Auto) TH/MM3 0.0 TH/MM3 Basophils # (Auto) TH/MM3 0.0 TH/MM3 CBC Comment AUTO DIFF AUTO DIFF Differential Total Cells 100 100 Counted Neutrophils % (Manual) 91 % 89 % Band Neutrophils % 2 % Lymphocytes % 6 % 5 % Monocytes % 1 % 6 % Neutrophils # (Manual) 20.7 TH/MM3 27.1 TH/MM3 Differential Comment FINAL DIFF FINAL DIFF MANUAL MANUAL Platelet Estimate NORMAL NORMAL Platelet Morphology Comment ENLARGED NORMAL Tear Drop Cells 1+ Ovalocytes 1+ 1+ Keratocytes OCC OCC Basophilic Stippling FAINT Acanthocytes OCC Laboratory Tests Test 11/18/16 11/19/16 11/19/16 11/19/16 23:20 00:35 05:02 07:45 Lactic Acid Level 4.3 mmol/L Troponin I 2.62 NG/ML 3.01 NG/ML Hemoglobin A1c 5.0 % Total Creatine Kinase 203 U/L 230 U/L Creatine Kinase MB 18.2 NG/ML 20.7 NG/ML Creatine Kinase MB % 9.0 % 9.0 % Triglycerides Level 113 MG/DL Cholesterol Level 169 MG/DL LDL Cholesterol 68 MG/DL HDL Cholesterol 78.4 MG/DL Cholesterol/HDL Ratio 2.15 RATIO Sodium Level 139 MEQ/L Potassium Level 4.3 MEQ/L Chloride Level 104 MEQ/L Carbon Dioxide Level 22.2 MEQ/L Anion Gap 13 MEQ/L Blood Urea Nitrogen 19 MG/DL Creatinine 1.02 MG/DL Estimat Glomerular Filtration 52 ML/MIN Rate Random Glucose 140 MG/DL Calcium Level 8.3 MG/DL Test 11/19/16 11/19/16 11/20/16 09:15 12:36 04:45 Lactic Acid Level 2.6 mmol/L 2.1 mmol/L B-Type Natriuretic Peptide 1309 PG/ML Sodium Level 140 MEQ/L Potassium Level 3.8 MEQ/L Chloride Level 105 MEQ/L Carbon Dioxide Level 23.5 MEQ/L Anion Gap 12 MEQ/L Blood Urea Nitrogen 21 MG/DL Creatinine 0.87 MG/DL Estimat Glomerular Filtration 62 ML/MIN Rate Random Glucose 98 MG/DL Calcium Level 8.2 MG/DL Magnesium Level 2.3 MG/DL Total Bilirubin 0.5 MG/DL Aspartate Amino Transf 46 U/L (AST/SGOT) Alanine Aminotransferase 30 U/L (ALT/SGPT) Alkaline Phosphatase 68 U/L Total Protein 6.6 GM/DL Albumin 3.4 GM/DL Imaging Last Impressions CT Angiography 11/18/161954 Signed Impressions: Service Date/Time: Friday, November 18, 2016 21:24 - CONCLUSION: Right upper lobe nodule and bilateral infiltrates most likely inflammatory, repeat noncontrast chest CT is suggested in 2-3 months after appropriate clinical therapy. Anuj Stoddard MD Chest X-Ray 11/18/16 1825 Signed Impressions: Service Date/Time: Friday, November 18, 2016 18:46 - CONCLUSION: No acute cardiopulmonary disease. Anuj Stoddard MD Physical Exam CONSTITUTIONAL/GENERAL: This is an adequately nourished patient, in mild resp distress. SKIN: No jaundice, rashes, or lesions. Skin temperature appropriate. Not diaphoretic. EYES: No scleral icterus. ENT: Oral mucosae without visible erythema, exudates, masses, or lesions. CARDIOVASCULAR: Regular rate and rhythm without murmurs, gallops, or rubs. No JVD. Peripheral pulses symmetric. RESPIRATORY/CHEST: Symmetric, labored respirations. + some accessory muscle use. Clear to auscultation. Breath sounds markedly diminished bilaterally. No wheezes , rales, or rhonchi. GASTROINTESTINAL: Abdomen soft, non-tender, nondistended. No hepato-splenomegaly , or palpable masses. No guarding. Bowel sounds present. MUSCULOSKELETAL: Extremities without clubbing, cyanosis, or edema. No joint tenderness or effusion noted. No calf tenderness. No mottling or clubbing. NEUROLOGICAL: Awake and alert. Motor and sensory grossly within normal limits. Follows commands. Normal speech. Moves all extremities. PSYCHIATRIC:calm and coopertive Assessment & Plan Remarks NSTEMI ? PNA Leukocytosis, severe: worse - multifactorial? - NSTEMI, sterroids, infx and some preexisting chronic leukocytosis COPD exacrbation -On high dose sterroids Lactic acedemia and suspected sepsis on presentation REC's: cont current abx for now - chk BC - chk sputum clx - cont azithro - further rec's to follow Eileen Tony MD Nov 20, 2016 18:41
[2016-11-20] MEDS: ATORVASTATIN 20 MG TAB PO SCH (20:12)
[2016-11-20] MEDS: CARVEDILOL 3.125 MG TAB PO SCH (20:13)
[2016-11-20] MEDS: SODIUM CHLORIDE 0.9% FLUSH 5 ML FLUSH IVF SCH (21:00)
[2016-11-21] VITALS (27 sets, daily range): BP systolic 89–107; BP diastolic 54–65; PULSE 57–102; RESP 16–20; TEMP 97.3–98.3; O2SAT 95–99
[2016-11-21] MEDS: RESP: ALBUTEROL 2.5 MG/IPRATROPIUM 0.5 MG NEB (PRN) NEB ×2 (02:34→23:41)
[2016-11-21 05:11] LABS: HEMATOCRIT 30.8 % (35.0-46.0); MEAN CELL VOLUME 60.2 FL (80.0-100.0); MEAN CORPUSCULAR HEMOGLOBIN 19.4 PG (27.0-34.0); MEAN CORPUSCULAR HGB CONC 32.2 % (32.0-36.0); PLATELET COUNT 306 TH/MM3 (150-450); RED BLOOD COUNT 5.11 MIL/MM3 (4.00-5.30); RED CELL DISTRIBUTION WIDTH 16.7 % (11.6-17.2); WHITE BLOOD COUNT 24.8 TH/MM3 (4.0-11.0)
[2016-11-21 05:20] LABS: APTT (PATIENT) 24.4 SEC (24.3-30.1)
[2016-11-21] MEDS: CEFEPIME INJ 1,000 MG in SODIUM CHLORIDE 0.9% INJ 100 ML IV SCH ×3 (05:20→21:32)
[2016-11-21 05:32] LABS: REVIEW FLAG FINAL
[2016-11-21] MEDS: INSULIN ASPART SUPPLEMENTAL SCALE SQ SCH ×4 (07:00→21:00)
[2016-11-21] MEDS: SODIUM CHLORIDE 0.9% FLUSH 5 ML FLUSH IVF SCH ×2 (08:29→21:00)
[2016-11-21] MEDS: FUROSEMIDE 20 MG/2 ML VIAL IV PUSH SCH (08:29)
[2016-11-21] MEDS: AZITHROMYCIN 250 MG TAB PO SCH (08:29)
[2016-11-21] MEDS: predniSONE 20 MG TAB PO SCH (08:31)
[2016-11-21] MEDS: LISINOPRIL 5 MG TAB PO SCH ×2 (08:31→11:02)
[2016-11-21] MEDS: CARVEDILOL 3.125 MG TAB PO SCH ×3 (08:31→21:30)
[2016-11-21] MEDS: ASPIRIN 81 MG CHEW TAB CHEW SCH (08:32)
[2016-11-21] MEDS: SPIRONOLACTONE 25 MG TAB PO SCH (08:32)
[2016-11-21] MEDS: BUDESONIDE-FORMOTEROL 80/4.5 MCG INHALER INH SCH ×2 (08:33→21:00)
[2016-11-21 11:59] LABS: BASOPHIL % 0.2 % (0.0-2.0); HEMATOCRIT 31.4 % (35.0-46.0); LYMPH % 4.3 % (9.0-44.0); MEAN CELL VOLUME 59.7 FL (80.0-100.0); MEAN CORPUSCULAR HEMOGLOBIN 19.2 PG (27.0-34.0); MEAN CORPUSCULAR HGB CONC 32.2 % (32.0-36.0); MONO % 6.9 % (0.0-8.0); NEUT % 88.6 % (16.0-70.0); PLATELET COUNT 305 TH/MM3 (150-450); RED BLOOD COUNT 5.26 MIL/MM3 (4.00-5.30); RED CELL DISTRIBUTION WIDTH 16.9 % (11.6-17.2); WHITE BLOOD COUNT 22.6 TH/MM3 (4.0-11.0)
[2016-11-21] MEDS: VANCOMYCIN 1,000 MG/NS 250 ML IV SCH ×2 (12:02)
[2016-11-21 12:04] LABS: HEMO FLAGS AUTO DIFF
[2016-11-21 12:21] LABS: BICARBONATE 25.8 MEQ/L (21.0-32.0); POTASSIUM 3.2 MEQ/L (3.5-5.1)
[2016-11-21] MEDS ORDERED: POTASSIUM CHLORIDE 20 MEQ CONTROLLED RELEASE TAB PO ONE (13:00)
[2016-11-21 13:04] LABS: BANDS 1 % (0-6); NEUTROPHIL # MANUAL DIFF 21.7 TH/MM3 (1.8-7.7); PLATELET ESTIMATE SMEAR NORMAL (NORMAL); PLATELET MORPHOLOGY NORMAL (NORMAL); POLYS (SEG NEUTROPHILS) 95 % (16-70); SCAN/DIFF FINAL DIFF MANUAL; WBC DIFF SAMPLE 100
[2016-11-21 13:09] LABS: TRANSFERRIN IRON PROFILE 205 MG/DL (200-360)
[2016-11-21 13:12] LABS: FERRITIN 421 NG/ML (8-252)
[2016-11-21] MEDS ORDERED: POTASSIUM CHLORIDE 25 MEQ EFFERVESCENT TAB PO ONE (14:30)
--- NOTE | 2016-11-21 14:30 | HHI.PR ---
Subjective Remarks Patient is in the chair. She is still with SOB. No chest pain. No n/v/d/c. No sebastian. Discussed at length current medical conditions and treatment. She expressed understanding. Objective Vitals Vital Signs Date Time Temp Pulse Resp B/P Pulse Ox O2 Delivery O2 Flow Rate FiO2 11/21/16 11:41 97.5 102 16 105/65 97 11/21/16 11:00 96 11/21/16 10:00 83 11/21/16 09:00 98 11/21/16 08:00 96 Nasal Cannula 2.00 11/21/16 08:00 82 11/21/16 08:00 98.3 102 16 106/57 97 11/21/16 07:00 102 11/21/16 06:16 82 11/21/16 05:00 91 11/21/16 04:00 79 11/21/16 03:00 98.1 85 20 100/57 99 11/21/16 03:00 85 11/21/16 02:14 101 11/21/16 01:52 57 11/21/16 00:28 85 11/20/16 23:00 98.3 83 20 103/65 97 11/20/16 23:00 83 11/20/16 22:00 87 11/20/16 20:34 99 Nasal Cannula 2.00 11/20/16 20:00 103 11/20/16 19:30 100 11/20/16 19:30 98.1 100 16 127/84 97 11/20/16 19:30 97 Nasal Cannula 2.00 11/20/16 18:00 99 11/20/16 17:00 97 11/20/16 16:00 99 11/20/16 15:53 99 Nasal Cannula 2.00 11/20/16 15:00 99 11/20/16 15:00 98.2 99 18 124/73 98 I/O 11/20/16 11/20/16 11/20/16 11/21/16 11/21/16 11/21/16 07:00 15:00 23:00 07:00 15:00 23:00 Intake Total 1460 ml 1301 ml 200 ml Output Total 1550 ml Balance -90 ml 1301 ml 200 ml Intake Oral 480 ml 0 ml IV Total 980 ml 1301 ml 200 ml Output Urine Total 1550 ml # Voids 2 # Bowel Movements 0 0 Result Diagram: 11/21/16 1135 11/21/[address] Angiography 11/18/161954 Signed Impressions: Service Date/Time: Friday, November 18, 2016 21:24 - CONCLUSION: Right upper lobe nodule and bilateral infiltrates most likely inflammatory, repeat noncontrast chest CT is suggested in 2-3 months after appropriate clinical therapy. Anuj Stoddard MD Chest X-Ray 11/18/16 182 Signed Impressions: Service Date/Time: Friday, November 18, 2016 18:46 - CONCLUSION: No acute cardiopulmonary disease. Anuj Stoddard MD Objective Remarks GENERAL: 80 yo female, on BiPaP - SKIN: No rashes, ecchymoses or lesions. Cool and dry. HEAD: Atraumatic. Normocephalic. No temporal or scalp tenderness. EYES: Pupils equal round and reactive. Extraocular motions intact. No scleral icterus. No injection or drainage. ENT: Nose without bleeding, purulent drainage or septal hematoma. Throat without erythema, tonsillar hypertrophy or exudate. Uvula midline. Airway patent. NECK: Trachea midline. No JVD or lymphadenopathy. Supple, nontender, no meningeal signs. CARDIOVASCULAR: Regular rate and rhythm without murmurs, gallops, or rubs. RESPIRATORY: diminished air entry bilaterally. GASTROINTESTINAL: Abdomen soft, non-tender, nondistended. No hepato-splenomegaly , or palpable masses. No guarding. MUSCULOSKELETAL: Extremities without clubbing, cyanosis, or edema. No joint tenderness, effusion, or edema noted. No calf tenderness. Negative Homans sign bilaterally. NEUROLOGICAL: Awake and alert. Cranial nerves II through XII intact. Motor and sensory grossly within normal limits. Five out of 5 muscle strength in all muscle groups. Normal speech. Procedures ECHO: The estimated ejection fraction was in the range of 25% to 30%. Akinesis of the apical myocardium. - Aortic valve: Mild to moderate regurgitation. - Mitral valve: Mild to moderate regurgitation. - Tricuspid valve: Moderate regurgitation. - Pulmonary arteries: Systolic pressure was severely increased. PA peak pressure: 87mm Hg (S). A/P Problem List: (1) NSTEMI (non-ST elevated myocardial infarction) ICD Code: I21.4 Status: Acute (2) Pneumonia ICD Code: J18.9 Status: Acute Assessment and Plan Acute hypoxemic respiratory failure due to pneumonia/ COPD exacerbation was on BiPAP; switched to N/C but still with respiratory distress- started IV steroids and neb treatment, taper down as tolerated Consult pulmonary Severe sepsis ( tachycardia/ leukocytosis) due to pneumonia on admission start broad spectrum Iv antibiotics, ass azithromycin- follow the cultures- CBC in am- consult ID, appreciate recommendations NSTEMI: likely trops elevated 2/2 demand ischemia 2/2 cardiomyopathy DC heparin drip- continue aspirin- enzymes trending up. Patient does not complain of chest pain/pressure/nausea/diaphoresis. Consult cardiology, seen by Dr Dawkins appreciate recommendations. Recommends cardiac cath, plan for cardiac cath 11/[address] Duque Check 2D ECHO- reviewed. EF of 25-30 % severely reduced EF. Mild to moderate MV , TV and AV regurgitation. Check lipid panel normal Of note the patient says that she was diagnosed with broken heart syndrome two years ago. Continue ACEI , BB, statin, lasix, spironolactone. S/P cath no ischemic disease, patient has cardiomyopathy. Continue medical management per cardiology Systolic CHF. Mild to moderate MV, TV and AV regurgitation. BNP elevated in 1600. EF of 25-30 % severely reduced EF. Continue BB, ACEI, aldactone, ASA, statin. Continue lasix IV 20 mg. Monitor BP and hold BP meds as BP runs low. Hyperglycemia- with no history of diabetes Accu-check with SSI- check A1c Acute kidney injury: on gentle IV hydration- monitor renal function- BMP in am DVT prophylaxis: on heparin drip Code status: DNR Discussed Condition With patient, nurse Problem Qualifiers (1) Pneumonia: Qualified Code: J18.9 - Pneumonia of both lungs due to infectious organism, unspecified part of lung Lucila Inman MD Nov 21, 2016 14:30
[2016-11-21] MEDS: FERROUS SULFATE 325 MG (65 MG ELEMENTAL IRON) TAB PO SCH (16:41)
--- NOTE | 2016-11-21 18:45 | HHI.PR ---
Subjective Remarks C/O some cough with mild wheezing. No fever or chest pains. On IV antibiotics Objective Vital Signs Date Time Temp Pulse Resp B/P Pulse Ox O2 Delivery O2 Flow Rate FiO2 11/21/16 17:00 89 11/21/16 16:00 78 11/21/16 15:13 97.7 84 16 107/57 97 11/21/16 15:00 82 11/21/16 14:00 84 11/21/16 13:00 84 11/21/16 12:00 83 11/21/16 11:41 97.5 102 16 105/65 97 11/21/16 11:00 96 11/21/16 10:00 83 11/21/16 09:00 98 11/21/16 08:00 96 Nasal Cannula 2.00 11/21/16 08:00 82 11/21/16 08:00 98.3 102 16 106/57 97 11/21/16 07:00 102 11/21/16 06:16 82 11/21/16 05:00 91 11/21/16 04:00 79 11/21/16 03:00 98.1 85 20 100/57 99 11/21/16 03:00 85 11/21/16 02:14 101 11/21/16 01:52 57 11/21/16 00:28 85 11/20/16 23:00 98.3 83 20 103/65 97 11/20/16 23:00 83 11/20/16 22:00 87 11/20/16 20:34 99 Nasal Cannula 2.00 11/20/16 20:00 103 11/20/16 19:30 100 11/20/16 19:30 98.1 100 16 127/84 97 11/20/16 19:30 97 Nasal Cannula 2.00 I/O 11/20/16 11/20/16 11/20/16 11/21/16 11/21/16 11/21/16 06:59 14:59 22:59 06:59 14:59 22:59 Intake Total 1460 ml 1301 ml 200 ml 1125 ml Output Total 1550 ml 675 ml Balance -90 ml 1301 ml 200 ml 450 ml Intake Oral 480 ml 0 ml 875 ml IV Total 980 ml 1301 ml 200 ml 250 ml Output Urine Total 1550 ml 675 ml # Voids 2 # Bowel Movements 0 0 0 Result Diagram: 12/28/16 1135 11/21/16 1135 Objective Remarks GENERAL: Elderly W/F who is alert. No distress HEENT: Exam unremarkable. Eyes without icterus. NECK: Without adenopathy or thyroid enlargement. Central trachea. CHEST: No dullness to percussion. Occ basal crackles. CARDIAC: PMI distant. S1-S2 audible. No murmur or rub. ABDOMEN: Lax, bowel sounds audible. EXTREMITIES: No clubbing, cyanosis or edema. IMAGING STUDIES CT angiogram with a right upper lobe nodule and bilateral infiltrates, question pneumonia. The chest x-ray was unremarkable. Assessment and Plan Assessment and Plan IMPRESSION 1. COPD and exacerbation. 2. coronary artery disease. 3. Possible left pneumonia 4. Right lung nodule. Plan : 1. Get a Chest X ray . 2. PFT in am. 3. Cont Antibiotics . 4.Wean O2 to RA. 5. Will need F/U CT chest in 6 mths. 6. Switch to PO meds in am if CXR is stable. 7. Taper prednisone to 30 mg daily. Konstantin Martinez MD Nov 21, 2016 18:45
--- NOTE | 2016-11-21 20:43 | RADRPT ---
EXAM DATE/TIME: 11/21/2016 20:05 [facility] COMPARISON: CHEST SINGLE AP, November 18, 2016, 18:46. INDICATIONS : Shortness of breath MEDICAL HISTORY : Chronic obstructive pulmonary disease. Asthma SURGICAL HISTORY : ENCOUNTER: Subsequent ACUITY: 3 days PAIN SCORE: 0/10 LOCATION: Bilateral chest FINDINGS: Blunting of the right lateral costophrenic angle is noted and may reflect a small effusion and consol idation. Left lung is clear. There is hyperinflation. Heart size normal. Osseous structures are intac t. CONCLUSION: Right pleural effusion and basilar airspace disease suspected. Gus Ledezma MD on November 21, 2016 at 20:41 Board Certified Radiologist. This report was verified electronically.
[2016-11-21] MEDS ORDERED: APIXABAN 2.5 MG TABLET PO SCH (21:00)
[2016-11-21] MEDS: ATORVASTATIN 20 MG TAB PO SCH (21:30)
[2016-11-22] VITALS (25 sets, daily range): BP systolic 103–136; BP diastolic 47–81; PULSE 60–101; RESP 16–20; TEMP 97.5–98.1; O2SAT 94–99
[2016-11-22] MEDS: CEFEPIME INJ 1,000 MG in SODIUM CHLORIDE 0.9% INJ 100 ML IV SCH ×3 (05:05→20:49)
[2016-11-22 06:23] LABS: BASOPHIL % 0.1 % (0.0-2.0); EOSINOPHIL % 0.3 % (0.0-4.0); HEMATOCRIT 29.2 % (35.0-46.0); LYMPH % 15.6 % (9.0-44.0); LYMPHOCYTE # 2.9 TH/MM3 (1.0-4.8); MEAN CELL VOLUME 60.3 FL (80.0-100.0); MEAN CORPUSCULAR HEMOGLOBIN 19.3 PG (27.0-34.0); MONO % 7.8 % (0.0-8.0); NEUT % 76.2 % (16.0-70.0); PLATELET COUNT 304 TH/MM3 (150-450); RED BLOOD COUNT 4.84 MIL/MM3 (4.00-5.30); WHITE BLOOD COUNT 18.4 TH/MM3 (4.0-11.0)
[2016-11-22 06:26] LABS: HEMO FLAGS AUTO DIFF
[2016-11-22 06:41] LABS: BICARBONATE 25.3 MEQ/L (21.0-32.0); MAGNESIUM 2.3 MG/DL (1.5-2.5)
[2016-11-22] MEDS: INSULIN ASPART SUPPLEMENTAL SCALE SQ SCH ×4 (07:00→20:50)
[2016-11-22 07:33] LABS: OVALOCYTES 1+ (NORMAL); PLATELET MORPHOLOGY GIANT (NORMAL); SCAN/DIFF AUTO DIFF CONFIRMED; TEARDROP RBCS 1+ (NORMAL)
[2016-11-22] MEDS: predniSONE 20 MG TAB PO SCH (08:59)
[2016-11-22] MEDS: AZITHROMYCIN 250 MG TAB PO SCH (09:00)
[2016-11-22] MEDS: ASPIRIN 81 MG CHEW TAB CHEW SCH (09:00)
[2016-11-22] MEDS: SODIUM CHLORIDE 0.9% FLUSH 5 ML FLUSH IVF SCH ×2 (09:00→20:50)
[2016-11-22] MEDS: FUROSEMIDE 20 MG/2 ML VIAL IV PUSH SCH (09:01)
[2016-11-22] MEDS: LISINOPRIL 5 MG TAB PO SCH (09:01)
[2016-11-22] MEDS: SPIRONOLACTONE 25 MG TAB PO SCH (09:01)
[2016-11-22] MEDS: CARVEDILOL 3.125 MG TAB PO SCH ×2 (09:01→20:49)
[2016-11-22] MEDS: BUDESONIDE-FORMOTEROL 80/4.5 MCG INHALER INH SCH ×2 (09:05→20:51)
--- NOTE | 2016-11-22 09:44 | HHI.PR ---
Subjective Remarks Says she feels improved today. Says she feels her mouth is dry. No n/v/d/c. Says food is stuck in her throat, but is able to eat. Denies cp, palpitations. Is coughing more but still nonproductive cough. Feesl chest congestion. No fevers or chills. Objective Vitals Vital Signs Date Time Temp Pulse Resp B/P Pulse Ox O2 Delivery O2 Flow Rate FiO2 11/22/16 09:19 84 11/22/16 08:00 90 11/22/16 08:00 98 Nasal Cannula 1.00 11/22/16 08:00 97.8 89 18 113/47 98 11/22/16 06:05 70 11/22/16 05:41 81 11/22/16 04:00 73 11/22/16 03:00 97.5 91 16 99 11/22/16 03:00 90 11/22/16 02:00 60 11/22/16 01:00 60 11/22/16 00:00 63 11/21/16 23:44 98 Nasal Cannula 3.00 11/21/16 23:00 62 11/21/16 23:00 97.3 74 18 89/54 95 11/21/16 22:00 70 11/21/16 21:10 96 Nasal Cannula 2.00 11/21/16 21:00 70 11/21/16 20:00 66 11/21/16 19:00 85 11/21/16 19:00 98.1 85 16 104/58 97 11/21/16 19:00 97 Nasal Cannula 3.00 11/21/16 17:00 89 11/21/16 16:00 78 11/21/16 15:13 97.7 84 16 107/57 97 11/21/16 15:00 82 11/21/16 14:00 84 11/21/16 13:00 84 11/21/16 12:00 83 11/21/16 11:41 97.5 102 16 105/65 97 11/21/16 11:00 96 11/21/16 10:00 83 I/O 11/21/16 11/21/16 11/21/16 11/22/16 11/22/16 11/22/16 07:00 15:00 23:00 07:00 15:00 23:00 Intake Total 200 ml 1125 ml 600 ml Output Total 675 ml 450 ml Balance 200 ml 450 ml 150 ml Intake Oral 0 ml 875 ml 420 ml IV Total 200 ml 250 ml 180 ml Output Urine Total 675 ml 450 ml # Voids 2 # Bowel Movements 0 0 1 Result Diagram: 11/22/168 11/22/168 Imaging Last Impressions Chest X-Ray 11/21/16 0000 Signed Impressions: Service Date/Time: Monday, November 21, 2016 20:05 - CONCLUSION: Right pleural effusion and basilar airspace disease suspected. Gus Ledezma MD CT Angiography 11/18/161954 Signed Impressions: Service Date/Time: Friday, November 18, 2016 21:24 - CONCLUSION: Right upper lobe nodule and bilateral infiltrates most likely inflammatory, repeat noncontrast chest CT is suggested in 2-3 months after appropriate clinical therapy. Anuj Stoddard MD Objective Remarks GENERAL: 80 yo female, on BiPaP - SKIN: No rashes, ecchymoses or lesions. Cool and dry. HEAD: Atraumatic. Normocephalic. No temporal or scalp tenderness. EYES: Pupils equal round and reactive. Extraocular motions intact. No scleral icterus. No injection or drainage. ENT: Nose without bleeding, purulent drainage or septal hematoma. Throat without erythema, tonsillar hypertrophy or exudate. Uvula midline. Airway patent. NECK: Trachea midline. No JVD or lymphadenopathy. Supple, nontender, no meningeal signs. CARDIOVASCULAR: Regular rate and rhythm without murmurs, gallops, or rubs. RESPIRATORY: diminished air entry bilaterally. GASTROINTESTINAL: Abdomen soft, non-tender, nondistended. No hepato-splenomegaly , or palpable masses. No guarding. MUSCULOSKELETAL: Extremities without clubbing, cyanosis, or edema. No joint tenderness, effusion, or edema noted. No calf tenderness. Negative Homans sign bilaterally. NEUROLOGICAL: Awake and alert. Cranial nerves II through XII intact. Motor and sensory grossly within normal limits. Five out of 5 muscle strength in all muscle groups. Normal speech. Procedures ECHO: The estimated ejection fraction was in the range of 25% to 30%. Akinesis of the apical myocardium. - Aortic valve: Mild to moderate regurgitation. - Mitral valve: Mild to moderate regurgitation. - Tricuspid valve: Moderate regurgitation. - Pulmonary arteries: Systolic pressure was severely increased. PA peak pressure: 87mm Hg (S). A/P Problem List: (1) NSTEMI (non-ST elevated myocardial infarction) ICD Code: I21.4 Status: Acute (2) Pneumonia ICD Code: J18.9 Status: Acute Assessment and Plan Acute hypoxemic respiratory failure due to pneumonia/ COPD exacerbation was on BiPAP; switched to N/C but still with respiratory distress- started IV steroids and neb treatment, taper down as tolerated Consult pulmonary, appreciate recommendations Add mucinex, Acapella Severe sepsis ( tachycardia/ leukocytosis) due to pneumonia on admission start broad spectrum Iv antibiotics, ass azithromycin- follow the cultures- CBC in am- consult ID, appreciate recommendations NSTEMI: likely trops elevated 2/2 demand ischemia 2/2 cardiomyopathy DC heparin drip- continue aspirin- enzymes trending up. Patient does not complain of chest pain/pressure/nausea/diaphoresis. Consult cardiology, seen by Dr Dawkins appreciate recommendations. Recommends cardiac cath, plan for cardiac cath 11/[address] Duque Check 2D ECHO- reviewed. EF of 25-30 % severely reduced EF. Mild to moderate MV , TV and AV regurgitation. Check lipid panel normal Of note the patient says that she was diagnosed with broken heart syndrome two years ago. Continue ACEI , BB, statin, lasix, spironolactone. S/P cath no ischemic disease, patient has cardiomyopathy. Continue medical management per cardiology Systolic CHF. Mild to moderate MV, TV and AV regurgitation. BNP elevated in 1600. EF of 25-30 % severely reduced EF. Continue BB, ACEI, aldactone, ASA, statin. Continue lasix IV 20 mg. Monitor BP and hold BP meds as BP runs low. Hyperglycemia- with no history of diabetes Accu-check with SSI- check A1c Acute kidney injury: on gentle IV hydration- monitor renal function- BMP in am DVT prophylaxis: on heparin drip Code status: DNR Discussed Condition With patient, nurse Problem Qualifiers (1) Pneumonia: Qualified Code: J18.9 - Pneumonia of both lungs due to infectious organism, unspecified part of lung Lucila Inman MD Nov 22, 2016 09:44
[2016-11-22] MEDS ORDERED: NYSTAT/DIPHENHY/LIDO MOUTHWASH (Adult) 120ML SWISH-SWAL PRN (10:00)
[2016-11-22] MEDS ORDERED: PHARMACY ORDERED LAB XX ONE (11:45)
[2016-11-22] MEDS: VANCOMYCIN 1,000 MG/NS 250 ML IV SCH ×2 (12:32)
[2016-11-22] MEDS: FERROUS SULFATE 325 MG (65 MG ELEMENTAL IRON) TAB PO SCH ×2 (12:32→17:42)
--- NOTE | 2016-11-22 13:35 | PD.CARD.PN ---
Subjective Subjective Remarks Pt feels well, no complaints. Objective Medications Administered Medications Medications (Trade) Dose Ordered Sig/Cici Route PRN Reason Start Time Stop Time Status Last Admin Dose Admin Cefepime HCl/ Sodium Chloride (Maxipime Inj/NS Inj) 100 ml @ 200 mls/hr Q8H IV 11/19/16 06:00 11/22/16 05:05 Budesonide/ Formoterol Fumarate (Symbicort 80-4.5 Mcg Inh) 2 puff BID INH AST 11/19/16 09:00 11/22/16 09:05 Aspirin (Aspirin Chew) 324 mg DAILY CHEW 11/19/16 09:00 11/22/16 09:00 Atorvastatin Calcium (Lipitor) 20 mg HS PO 11/19/16 21:00 11/21/16 21:30 Azithromycin (Zithromax) 500 mg DAILY PO 11/20/16 09:00 11/22/16 09:00 Prednisone (Deltasone) 40 mg DAILY PO 11/21/16 09:00 11/22/16 08:59 Carvedilol (Coreg) 3.125 mg Q12HR PO 11/20/16 21:00 11/22/16 09:01 Lisinopril (Prinivil) 2.5 mg DAILY PO 11/21/16 09:00 11/22/16 09:01 Furosemide (Lasix Inj) 20 mg DAILY IV PUSH 11/20/16 14:30 11/22/16 09:01 Spironolactone (Aldactone) 25 mg DAILY PO 11/21/16 09:00 11/22/16 09:01 IV Flush (NS Flush) 2 ml BID IVF 11/20/16 21:00 11/22/16 09:00 Ferrous Sulfate (Ferrous Sulfate) 325 mg BID@12,17 PO 11/21/16 17:00 11/22/16 12:32 Vital Signs / I&O Vital Signs Date Time Temp Pulse Resp B/P Pulse Ox O2 Delivery O2 Flow Rate FiO2 11/22/16 12:25 74 11/22/16 11:56 71 11/22/16 11:56 97.9 74 18 103/50 98 11/22/16 10:53 82 11/22/16 09:19 84 11/22/16 08:00 90 11/22/16 08:00 98 Nasal Cannula 1.00 11/22/16 08:00 97.8 89 18 113/47 98 11/22/16 06:05 70 11/22/16 05:41 81 11/22/16 04:00 73 11/22/16 03:00 97.5 91 16 99 11/22/16 03:00 90 11/22/16 02:00 60 11/22/16 01:00 60 11/22/16 00:00 63 11/21/16 23:44 98 Nasal Cannula 3.00 11/21/16 23:00 62 11/21/16 23:00 97.3 74 18 89/54 95 11/21/16 22:00 70 11/21/16 21:10 96 Nasal Cannula 2.00 11/21/16 21:00 70 11/21/16 20:00 66 11/21/16 19:00 85 11/21/16 19:00 98.1 85 16 104/58 97 11/21/16 19:00 97 Nasal Cannula 3.00 11/21/16 17:00 89 11/21/16 16:00 78 11/21/16 15:13 97.7 84 16 107/57 97 11/21/16 15:00 82 11/21/16 14:00 84 I/O 11/21/16 11/21/16 11/21/16 11/22/16 11/22/16 11/22/16 06:59 14:59 22:59 06:59 14:59 22:59 Intake Total 200 ml 1125 ml 600 ml Output Total 675 ml 450 ml Balance 200 ml 450 ml 150 ml Intake Oral 0 ml 875 ml 420 ml IV Total 200 ml 250 ml 180 ml Output Urine Total 675 ml 450 ml # Voids 2 # Bowel Movements 0 0 1 Physical Exam GENERAL: This is a well-nourished, well-developed patient, in no apparent distress. CARDIOVASCULAR: Regular rate and rhythm without murmurs, gallops, or rubs. RESPIRATORY: decreased breath sounds GASTROINTESTINAL: Abdomen soft, non-tender, nondistended. Normal active bowel sounds MUSCULOSKELETAL: Extremities without clubbing, cyanosis, or edema. NEURO: Alert & Oriented x4 to person, place, time, situation. Moves all ext x4 Laboratory Laboratory Tests Test 11/22/16 11/22/16 04:28 11:30 White Blood Count 18.4 TH/MM3 Red Blood Count 4.84 MIL/MM3 Hemoglobin 9.3 GM/DL Hematocrit 29.2 % Mean Corpuscular Volume 60.3 FL Mean Corpuscular Hemoglobin 19.3 PG Mean Corpuscular Hemoglobin 32.0 % Concent Red Cell Distribution Width 17.0 % Platelet Count 304 TH/MM3 Mean Platelet Volume 10.0 FL Neutrophils (%) (Auto) 76.2 % Lymphocytes (%) (Auto) 15.6 % Monocytes (%) (Auto) 7.8 % Eosinophils (%) (Auto) 0.3 % Basophils (%) (Auto) 0.1 % Neutrophils # (Auto) 14.0 TH/MM3 Lymphocytes # (Auto) 2.9 TH/MM3 Monocytes # (Auto) 1.4 TH/MM3 Eosinophils # (Auto) 0.0 TH/MM3 Basophils # (Auto) 0.0 TH/MM3 CBC Comment AUTO DIFF Differential Comment AUTO DIFF CONFIRMED Platelet Morphology Comment GIANT Basophilic Stippling MOD Tear Drop Cells 1+ Ovalocytes 1+ Sodium Level 140 MEQ/L Potassium Level 4.0 MEQ/L Chloride Level 106 MEQ/L Carbon Dioxide Level 25.3 MEQ/L Anion Gap 9 MEQ/L Blood Urea Nitrogen 31 MG/DL Creatinine 0.86 MG/DL Estimat Glomerular Filtration 63 ML/MIN Rate Random Glucose 80 MG/DL Calcium Level 7.6 MG/DL Magnesium Level 2.3 MG/DL B-Type Natriuretic Peptide 742 PG/ML Vancomycin Level Trough 12.3 MCG/ML Imaging Last Impressions Chest X-Ray 11/21/16 0000 Signed Impressions: Service Date/Time: Monday, November 21, 2016 20:05 - CONCLUSION: Right pleural effusion and basilar airspace disease suspected. Gus Ledezma MD CT Angiography 11/18/161954 Signed Impressions: Service Date/Time: Friday, November 18, 2016 21:24 - CONCLUSION: Right upper lobe nodule and bilateral infiltrates most likely inflammatory, repeat noncontrast chest CT is suggested in 2-3 months after appropriate clinical therapy. Anuj Stoddard MD Assessment and Plan Problem List: (1) Takotsubo cardiomyopathy Assessment and Plan: On VIKI/BB, likely due to stress of severe copd exacerbation. (2) NSTEMI (non-ST elevated myocardial infarction) Assessment and Plan: normal coronaries. (3) Respiratory distress (4) Pneumonia Assessment and Plan Ok to d/c from cardiac standpoint, I will see her in my office in 1-2 weeks. Problem Qualifiers (1) Pneumonia: Qualified Code: J18.9 - Pneumonia of both lungs due to infectious organism, unspecified part of lung Porfirio Dawkins MD Nov 22, 2016 13:35
--- NOTE | 2016-11-22 18:24 | HHI.IDPN ---
Subjective Subjective Remarks much better negative cath no fever Antibiotics azithromycin cefepime vanco Past Medical History COPD Allergies: Coded Allergies: Codeine (Verified Allergy, Severe, NAUSEA/VOMITTING, 11/18/16) Darvon (Verified Allergy, Severe, N/V, 11/18/16) Demerol (Verified Allergy, Severe, N/V, 11/18/16) Flagyl (Verified Allergy, Severe, RASH, 11/18/16) Objective . Vital Signs Date Time Temp Pulse Resp B/P Pulse Ox O2 Delivery O2 Flow Rate FiO2 11/22/16 18:05 79 11/22/16 17:43 88 11/22/16 16:50 76 11/22/16 15:39 78 11/22/16 15:39 97.8 84 18 136/81 98 11/22/16 14:30 77 11/22/16 14:23 94 21 11/22/16 13:00 78 11/22/16 12:25 74 11/22/16 11:56 71 11/22/16 11:56 97.9 74 18 103/50 98 11/22/16 10:53 82 11/22/16 09:19 84 11/22/16 08:00 90 11/22/16 08:00 98 Nasal Cannula 1.00 11/22/16 08:00 97.8 89 18 113/47 98 11/22/16 06:05 70 11/22/16 05:41 81 11/22/16 04:00 73 11/22/16 03:00 97.5 91 16 99 11/22/16 03:00 90 11/22/16 02:00 60 11/22/16 01:00 60 11/22/16 00:00 63 11/21/16 23:44 98 Nasal Cannula 3.00 11/21/16 23:00 62 11/21/16 23:00 97.3 74 18 89/54 95 11/21/16 22:00 70 11/21/16 21:10 96 Nasal Cannula 2.00 11/21/16 21:00 70 11/21/16 20:00 66 11/21/16 19:00 85 11/21/16 19:00 98.1 85 16 104/58 97 11/21/16 19:00 97 Nasal Cannula 3.00 11/21/16 11/21/16 11/22/16 15:00 23:00 07:00 Intake Total 1125 ml 600 ml Output Total 675 ml 450 ml Balance 450 ml 150 ml Intake Oral 875 ml 420 ml IV Total 250 ml 180 ml Output Urine Total 675 ml 450 ml # Bowel Movements 0 1 . Laboratory Tests Test 11/21/16 11/21/16 11/22/16 04:42 11:35 04:28 White Blood Count 24.8 TH/MM3 22.6 TH/MM3 18.4 TH/MM3 Red Blood Count 5.11 MIL/MM3 5.26 MIL/MM3 4.84 MIL/MM3 Hemoglobin 9.9 GM/DL 10.1 GM/DL 9.3 GM/DL Hematocrit 30.8 % 31.4 % 29.2 % Mean Corpuscular Volume 60.2 FL 59.7 FL 60.3 FL Mean Corpuscular Hemoglobin 19.4 PG 19.2 PG 19.3 PG Mean Corpuscular Hemoglobin 32.2 % 32.2 % 32.0 % Concent Red Cell Distribution Width 16.7 % 16.9 % 17.0 % Platelet Count 306 TH/MM3 305 TH/MM3 304 TH/MM3 Mean Platelet Volume 8.6 FL 9.7 FL 10.0 FL Neutrophils (%) (Auto) 88.6 % 76.2 % Lymphocytes (%) (Auto) 4.3 % 15.6 % Monocytes (%) (Auto) 6.9 % 7.8 % Eosinophils (%) (Auto) 0.0 % 0.3 % Basophils (%) (Auto) 0.2 % 0.1 % Neutrophils # (Auto) 20.0 TH/MM3 14.0 TH/MM3 Lymphocytes # (Auto) 1.0 TH/MM3 2.9 TH/MM3 Monocytes # (Auto) 1.6 TH/MM3 1.4 TH/MM3 Eosinophils # (Auto) 0.0 TH/MM3 0.0 TH/MM3 Basophils # (Auto) 0.0 TH/MM3 0.0 TH/MM3 CBC Comment AUTO DIFF AUTO DIFF Differential Total Cells 100 Counted Neutrophils % (Manual) 95 % Band Neutrophils % 1 % Lymphocytes % 2 % Monocytes % 2 % Neutrophils # (Manual) 21.7 TH/MM3 Differential Comment FINAL DIFF AUTO DIFF MANUAL CONFIRMED Platelet Estimate NORMAL Platelet Morphology Comment NORMAL GIANT Basophilic Stippling MOD Tear Drop Cells 1+ Ovalocytes 1+ Laboratory Tests Test 11/21/16 11/22/16 11:35 04:28 Sodium Level 140 MEQ/L 140 MEQ/L Potassium Level 3.2 MEQ/L 4.0 MEQ/L Chloride Level 106 MEQ/L 106 MEQ/L Carbon Dioxide Level 25.8 MEQ/L 25.3 MEQ/L Anion Gap 8 MEQ/L 9 MEQ/L Blood Urea Nitrogen 32 MG/DL 31 MG/DL Creatinine 0.86 MG/DL 0.86 MG/DL Estimat Glomerular Filtration 63 ML/MIN 63 ML/MIN Rate Random Glucose 103 MG/DL 80 MG/DL Lactic Acid Level 1.4 mmol/L Calcium Level 7.9 MG/DL 7.6 MG/DL Iron Level 9 MCG/DL Total Iron Binding Capacity 287 MCG/DL Percent Iron Saturation 3.1 % Ferritin 421 NG/ML B-Type Natriuretic Peptide 1329 PG/ML 742 PG/ML Magnesium Level 2.3 MG/DL Microbiology Date/Time Procedure Status Source Growth 11/21/16 04:42 Aerobic Blood Culture - Preliminary Resulted Blood Peripheral NO GROWTH IN 1 DAY 11/21/16 04:42 Anaerobic Blood Culture - Preliminary Resulted Blood Peripheral NO GROWTH IN 1 DAY 11/21/16 04:49 Aerobic Blood Culture - Preliminary Resulted Blood Peripheral NO GROWTH IN 1 DAY 11/21/16 04:49 Anaerobic Blood Culture - Preliminary Resulted Blood Peripheral NO GROWTH IN 1 DAY Imaging Last Impressions CT Angiography 11/18/161954 Signed Impressions: Service Date/Time: Friday, November 18, 2016 21:24 - CONCLUSION: Right upper lobe nodule and bilateral infiltrates most likely inflammatory, repeat noncontrast chest CT is suggested in 2-3 months after appropriate clinical therapy. Anuj Stoddard MD Chest X-Ray 11/18/16 1825 Signed Impressions: Service Date/Time: Friday, November 18, 2016 18:46 - CONCLUSION: No acute cardiopulmonary disease. Anuj Stoddard MD Physical Exam CONSTITUTIONAL/GENERAL: This is an adequately nourished patient, in no distress. OOB iun a chair SKIN: No jaundice, rashes, or lesions. Skin temperature appropriate. Not diaphoretic. EYES: No scleral icterus. ENT: Oral mucosae without visible erythema, exudates, masses, or lesions. CARDIOVASCULAR: Regular rate and rhythm without murmurs, gallops, or rubs. No JVD. Peripheral pulses symmetric. RESPIRATORY/CHEST: Symmetric, labored respirations.No accessory muscle use. Clear to auscultation. Breath sounds markedly diminished bilaterally. No wheezes , rales, or rhonchi. GASTROINTESTINAL: Abdomen soft, non-tender, nondistended. No hepato-splenomegaly , or palpable masses. No guarding. Bowel sounds present. MUSCULOSKELETAL: Extremities without clubbing, cyanosis, or edema. No joint tenderness or effusion noted. NEUROLOGICAL: Awake and alert. Motor and sensory grossly within normal limits. Follows commands. Normal speech. Moves all extremities. PSYCHIATRIC:calm and coopertive Assessment & Plan Remarks NSTEMI: Takotsubo cardiomyopathy ? PNA Leukocytosis, severe: improving - multifactorial? - NSTEMI, sterroids, infx and some preexisting chronic leukocytosis COPD exacrbation -On high dose sterroids Lactic acedemia and suspected sepsis on presentation Severe microcytosis REC's: cont current abx for now - chk BC - chk sputum clx - cont azithro - dc vanco, cefepime if BC remain negatiuve Eileen Tony MD Nov 22, 2016 18:24
--- NOTE | 2016-11-22 18:49 | HHI.PR ---
Subjective Remarks C/O some cough with mild wheezing.Off o2 No fever or chest pains. On IV antibiotics, Vanco, Cefipime, zithro Objective Vital Signs Date Time Temp Pulse Resp B/P Pulse Ox O2 Delivery O2 Flow Rate FiO2 11/22/16 18:05 79 11/22/16 17:43 88 11/22/16 16:50 76 11/22/16 15:39 78 11/22/16 15:39 97.8 84 18 136/81 98 11/22/16 14:30 77 11/22/16 14:23 94 21 11/22/16 13:00 78 11/22/16 12:25 74 11/22/16 11:56 71 11/22/16 11:56 97.9 74 18 103/50 98 11/22/16 10:53 82 11/22/16 09:19 84 11/22/16 08:00 90 11/22/16 08:00 98 Nasal Cannula 1.00 11/22/16 08:00 97.8 89 18 113/47 98 11/22/16 06:05 70 11/22/16 05:41 81 11/22/16 04:00 73 11/22/16 03:00 97.5 91 16 99 11/22/16 03:00 90 11/22/16 02:00 60 11/22/16 01:00 60 11/22/16 00:00 63 11/21/16 23:44 98 Nasal Cannula 3.00 11/21/16 23:00 62 11/21/16 23:00 97.3 74 18 89/54 95 11/21/16 22:00 70 11/21/16 21:10 96 Nasal Cannula 2.00 11/21/16 21:00 70 11/21/16 20:00 66 11/21/16 19:00 85 11/21/16 19:00 98.1 85 16 104/58 97 11/21/16 19:00 97 Nasal Cannula 3.00 I/O 11/21/16 11/21/16 11/21/16 11/22/16 11/22/16 11/22/16 07:00 15:00 23:00 07:00 15:00 23:00 Intake Total 200 ml 1125 ml 600 ml 1260 ml Output Total 675 ml 450 ml 2000 ml Balance 200 ml 450 ml 150 ml -740 ml Intake Oral 0 ml 875 ml 420 ml 1260 ml IV Total 200 ml 250 ml 180 ml Output Urine Total 675 ml 450 ml 2000 ml # Voids 2 # Bowel Movements 0 0 1 1 Result Diagram: 11/22/1642711/22/16427 Objective Remarks GENERAL: Elderly W/F who is alert. No distress . Mild pallor HEENT: Exam unremarkable. Eyes without icterus. NECK: Without adenopathy or thyroid enlargement. Central trachea. CHEST: Decreased breath sounds at bases. Occ basal crackles. CARDIAC: PMI distant. S1-S2 audible. No murmur or rub. ABDOMEN: Lax, bowel sounds audible. EXTREMITIES: No clubbing, cyanosis or edema. IMAGING STUDIES CT angiogram with a right upper lobe nodule and bilateral infiltrates, question pneumonia. The chest x-ray was unremarkable. Assessment and Plan Assessment and Plan IMPRESSION 1. COPD and exacerbation. 2. coronary artery disease. 3. Possible basal pneumonia 4. Right lung nodule. Plan : 1. O2 2l at HS prn 2. Robitussin Ac syrup 10 CC qid prn 3. Cont Antibiotics . 4. BMP,CBC 5. Will need F/U CT chest in 6 mths. 6. IS at bedside qid 7. Taper prednisone to 30 mg daily. Konstantin Martinez MD Nov 22, 2016 18:48
[2016-11-22] MEDS: guaiFENesin E.R. 600 MG TAB PO SCH (20:49)
[2016-11-22] MEDS: ATORVASTATIN 20 MG TAB PO SCH (20:49)
[2016-11-23] VITALS (22 sets, daily range): BP systolic 102–138; BP diastolic 52–87; PULSE 60–102; RESP 18–20; TEMP 98–98.4; O2SAT 94–97
[2016-11-23] MEDS: CEFEPIME INJ 1,000 MG in SODIUM CHLORIDE 0.9% INJ 100 ML IV SCH ×3 (04:36→21:14)
[2016-11-23 05:22] LABS: AUTOMATED NEUTROPHIL # 14.1 TH/MM3 (1.8-7.7); BASOPHIL % 0.1 % (0.0-2.0); EOSINOPHIL # 0.1 TH/MM3 (0-0.4); EOSINOPHIL % 0.4 % (0.0-4.0); HEMATOCRIT 29.2 % (35.0-46.0); LYMPH % 14.9 % (9.0-44.0); LYMPHOCYTE # 2.7 TH/MM3 (1.0-4.8); MEAN CELL VOLUME 59.9 FL (80.0-100.0); MEAN CORPUSCULAR HEMOGLOBIN 19.2 PG (27.0-34.0); MONO % 5.8 % (0.0-8.0); NEUT % 78.8 % (16.0-70.0); PLATELET COUNT 307 TH/MM3 (150-450); RED BLOOD COUNT 4.88 MIL/MM3 (4.00-5.30); RED CELL DISTRIBUTION WIDTH 16.9 % (11.6-17.2); WHITE BLOOD COUNT 17.9 TH/MM3 (4.0-11.0)
[2016-11-23 05:34] LABS: HEMO FLAGS AUTO DIFF
[2016-11-23 05:49] LABS: MAGNESIUM 2.3 MG/DL (1.5-2.5); POTASSIUM 3.9 MEQ/L (3.5-5.1)
[2016-11-23] MEDS: INSULIN ASPART SUPPLEMENTAL SCALE SQ SCH ×4 (07:00→21:00)
--- NOTE | 2016-11-23 07:19 | HHI.DCPOC ---
Discharge Care Plan Goals to Promote Your Health * To prevent worsening of your condition and complications * To maintain your health at the optimal level Directions to Meet Your Goals Take your medications as prescribed Follow your dietary instruction Follow activity as directed Keep your appointments as scheduled Take your immunizations and boosters as scheduled If your symptoms worsen call your PCP, if no PCP go to Urgent Care Center or Emergency Room Smoking is Dangerous to Your Health. Avoid second hand smoke Call the 24-hour hour crisis hotline for domestic abuse at Lucila Inman MD Nov 23, 2016 07:19
--- NOTE | 2016-11-23 07:21 | HHI.DS ---
cc: Brian Grande MD Discharge Summary Admission Date Nov 18, 2016 at 22:18 Discharge Date: Nov 25, 2016 Admitting Diagnosis NSTEMI (1) NSTEMI (non-ST elevated myocardial infarction) ICD Code: I21.4 Diagnosis: Principal (2) Pneumonia ICD Code: J18.9 Diagnosis: Secondary (3) Respiratory distress ICD Code: R06.00 Diagnosis: Secondary (4) Abnormal CT scan of lung ICD Code: R91.8 Diagnosis: Secondary (5) Cardiomyopathy ICD Code: I42.9 Diagnosis: Secondary Procedures ECHO: The estimated ejection fraction was in the range of 25% to 30%. Akinesis of the apical myocardium. - Aortic valve: Mild to moderate regurgitation. - Mitral valve: Mild to moderate regurgitation. - Tricuspid valve: Moderate regurgitation. - Pulmonary arteries: Systolic pressure was severely increased. PA peak pressure: 87mm Hg (S). Brief History - From Admission Patient is a 80 y/o female with history of COPD who presented to ER with sob. she says that her sob started yesterday and gradually got worse. she's not coughing. she denies any fever or chills.she says that she had some generalized chest pain which she relates to her difficulty breathing. she was initially placed on BiPaP - however she was later on switched to oxygen via N/c but she was still in some respiratory distress - she was placed back on BiPaP.she had some nausea earlier which has resolved. she had diaphoretic episodes earlier in the morning. at the time of my evaluation she was still on BiPaP but she says that her sob has much improved. she says that she had a stress test about two years ago and she was diagnosed with ' broken heart syndrome'. CBC/BMP: 11/23/16 0422 11/23/16 0422 Significant Findings Laboratory Tests Test 11/20/16 11/21/16 11/21/16 11/22/16 07:27 04:42 11:35 04:28 Activated Partial 41.5 SEC Thromboplast Time (24.3-30.1) White Blood Count 24.8 TH/MM3 22.6 TH/MM3 18.4 TH/MM3 (4.0-11.0) (4.0-11.0) (4.0-11.0) Hemoglobin 9.9 GM/DL 10.1 GM/DL 9.3 GM/DL (11.6-15.3) (11.6-15.3) (11.6-15.3) Hematocrit 30.8 % 31.4 % 29.2 % (35.0-46.0) (35.0-46.0) (35.0-46.0) Mean Corpuscular Volume 60.2 FL 59.7 FL 60.3 FL (80.0-100.0) (80.0-100.0) (80.0-100.0) Mean Corpuscular Hemoglobin 19.4 PG 19.2 PG 19.3 PG (27.0-34.0) (27.0-34.0) (27.0-34.0) Neutrophils (%) (Auto) 88.6 % 76.2 % (16.0-70.0) (16.0-70.0) Lymphocytes (%) (Auto) 4.3 % (9.0-44.0) Neutrophils # (Auto) 20.0 TH/MM3 14.0 TH/MM3 (1.8-7.7) (1.8-7.7) Monocytes # (Auto) 1.6 TH/MM3 1.4 TH/MM3 (0-0.9) (0-0.9) Neutrophils % (Manual) 95 % (16-70) Lymphocytes % 2 % (9-44) Neutrophils # (Manual) 21.7 TH/MM3 (1.8-7.7) Potassium Level 3.2 MEQ/L (3.5-5.1) Blood Urea Nitrogen 32 MG/DL (7-18) 31 MG/DL (7-18) Estimat Glomerular Filtration 63 ML/MIN (>89) 63 ML/MIN (>89) Rate Calcium Level 7.9 MG/DL 7.6 MG/DL (8.5-10.1) (8.5-10.1) Iron Level 9 MCG/DL (50-170) Percent Iron Saturation 3.1 % (20-50) Ferritin 421 NG/ML (8-252) B-Type Natriuretic Peptide 1329 PG/ML 742 PG/ML (0-100) (0-100) Platelet Morphology Comment GIANT (NORMAL) Basophilic Stippling MOD (NORMAL) Tear Drop Cells 1+ (NORMAL) Ovalocytes 1+ (NORMAL) Test 11/22/16 11/23/16 11:30 04:22 Vancomycin Level Trough 12.3 MCG/ML (5.0-10.0) White Blood Count 17.9 TH/MM3 (4.0-11.0) Hemoglobin 9.3 GM/DL (11.6-15.3) Hematocrit 29.2 % (35.0-46.0) Mean Corpuscular Volume 59.9 FL (80.0-100.0) Mean Corpuscular Hemoglobin 19.2 PG (27.0-34.0) Neutrophils (%) (Auto) 78.8 % (16.0-70.0) Neutrophils # (Auto) 14.1 TH/MM3 (1.8-7.7) Monocytes # (Auto) 1.0 TH/MM3 (0-0.9) Blood Urea Nitrogen 30 MG/DL (7-18) Estimat Glomerular Filtration 72 ML/MIN (>89) Rate Calcium Level 7.6 MG/DL (8.5-10.1) B-Type Natriuretic Peptide 961 PG/ML (0-100) Imaging Last Impressions Chest X-Ray 11/24/16 0600 Signed Impressions: Service Date/Time: Thursday, November 24, 2016 04:43 - CONCLUSION: Lungs are now clear. Logan Jules MD CT Angiography 11/18/16 1955 Signed Impressions: Service Date/Time: Friday, November 18, 2016 21:24 - CONCLUSION: Right upper lobe nodule and bilateral infiltrates most likely inflammatory, repeat noncontrast chest CT is suggested in 2-3 months after appropriate clinical therapy. Anuj Stoddard MD PE at Discharge GENERAL: 80 yo female, on BiPaP - SKIN: No rashes, ecchymoses or lesions. Cool and dry. HEAD: Atraumatic. Normocephalic. No temporal or scalp tenderness. EYES: Pupils equal round and reactive. Extraocular motions intact. No scleral icterus. No injection or drainage. ENT: Nose without bleeding, purulent drainage or septal hematoma. Throat without erythema, tonsillar hypertrophy or exudate. Uvula midline. Airway patent. NECK: Trachea midline. No JVD or lymphadenopathy. Supple, nontender, no meningeal signs. CARDIOVASCULAR: Regular rate and rhythm without murmurs, gallops, or rubs. RESPIRATORY: diminished air entry bilaterally. GASTROINTESTINAL: Abdomen soft, non-tender, nondistended. No hepato-splenomegaly , or palpable masses. No guarding. MUSCULOSKELETAL: Extremities without clubbing, cyanosis, or edema. No joint tenderness, effusion, or edema noted. No calf tenderness. Negative Homans sign bilaterally. NEUROLOGICAL: Awake and alert. Cranial nerves II through XII intact. Motor and sensory grossly within normal limits. Five out of 5 muscle strength in all muscle groups. Normal speech. Hospital Course Patient is a very pleasant 80 y/o female with history of COPD who presented to ER with sob. she says that her sob started yesterday and gradually got worse. she's not coughing. she denies any fever or chills.she says that she had some generalized chest pain which she relates to her difficulty breathing. she was initially placed on BiPaP - however she was later on switched to oxygen via N/c but she was still in some respiratory distress - she was placed back on BiPaP.she had some nausea earlier which has resolved. she had diaphoretic episodes earlier in the morning. at the time of my evaluation she was still on BiPaP but she says that her sob has much improved. she says that she had a stress test about two years ago and she was diagnosed with ' broken heart syndrome'.. Patient presented with severe SOB/ respiratory failure multifactorial. Patient with sepsis, bilateral PNA, CHF exacerbation /cardiomyopathy with EF 25-30%, NSTEMI, COPD exacerbation. Treated with IV abx, steroids, started CHF meds, had cardiac cath showed cardiomyopathy, managed medically. Patient improved significantly. DC home in fairly well condition with home health. To follow up as OP with PCP and consultants. Acute hypoxemic respiratory failure due to pneumonia/ COPD exacerbation was on BiPAP; switched to nasal canula, weaned off. Satting well on room air now, passed O2 walking test- received IV steroids and neb treatment, tapered down as tolerated Consult pulmonary, appreciate recommendations Add mucinex, Acapella Sputum cx obtained and negative Blood cx negative Severe sepsis ( tachycardia/ leukocytosis) due to pneumonia on admission CT chest findings reviewed findings discussed with the patient Right upper lobe nodule and bilateral infiltrates most likely inflammatory, repeat noncontrast chest CT is suggested in 2-3 months after appropriate clinical therapy. Patient was adviced to follow up as OP and plan to repeat CT as OP, she expressed understanding. Note patient has a h/o heavy smoking and she quit smoking 30 years ago. Received broad spectrum Iv antibiotics, added azithromycin- follow the cultures- consult ID, appreciate recommendations Sputum cx NTD Blood cx NTD Negative Legionella /Pneumococcal antigen DC vanco, cefepime if BC remain negative per ID specialist Dr Kim. Continue azithro. Patient with leukocytosis, likely reactive. Afebrile. NSTEMI: likely trops elevated 2/2 demand ischemia 2/2 cardiomyopathy DC heparin drip- continue aspirin- enzymes trending up. Patient does not complain of chest pain/pressure/nausea/diaphoresis. Consult cardiology, seen by Dr Dawkins appreciate recommendations. Recommends cardiac cath, plan for cardiac cath 11/[address] Duque Check 2D ECHO- reviewed. EF of 25-30 % severely reduced EF. Mild to moderate MV , TV and AV regurgitation. Check lipid panel cherrie. A1c normal. Of note the patient says that she was diagnosed with broken heart syndrome two years ago. Continue ACEI , BB, statin, lasix, spironolactone. S/P cath no ischemic disease, patient has cardiomyopathy. Continue medical management per cardiology Nonischemic cardiomyopathy. Systolic CHF. Mild to moderate MV, TV and AV regurgitation. BNP elevated in 1600. EF of 25-30 % severely reduced EF. Continue BB, ACEI, aldactone, ASA, statin. Continue lasix IV 20 mg. Monitor BP and hold BP meds as BP runs low. Anxiety: Start ativan prn. To follow up as OP. Hyperglycemia- with no history of diabetes Accu-check with SSI- check A1c Acute kidney injury: monitor avoid as possible nephrotoxic agents. Improved significantly. Plan to DC home with home health. To follow up as OP with PCP and consultants. Pt Condition on Discharge: Fair Discharge Disposition: Disch w/ Home Health Serv Discharge Time: > 30 minutes Discharge Instructions DIET: Follow Instructions for: Heart Healthy Diet Activities you can perform: Regular-No Restrictions Follow up Referrals: Cardiology - 2 Weeks with Porfirio Dawkins MD PCP Follow-up - 3-5 Days Pulmonology - 3 Weeks with Konstantin Martinez MD New Orders: CT THORAX W CONTRAST (CHEST) - 2 Months New Medications: Alprazolam (Alprazolam) 0.5 Mg Tab 0.5 MG PO BID PRN ANXIETY #30 Ref 0 TAB Aspirin (Aspirin) 81 Mg Chew 324 MG CHEW DAILY Blood Clot Prevention #30 Ref 0 TAB Azithromycin (Azithromycin) 500 Mg Tab 500 MG PO DAILY Infection #5 Ref 0 TAB Furosemide (Furosemide) 20 Mg Tab 20 MG PO DAILY Blood Pressure Management #30 Ref 0 TAB Prednisone (21) 10 mg tab Dose Pack (Prednisone (21) 10 mg tab Dose Pack) 10 Mg Pack 10 MG PO DIRECTED Inflammation #1 Ref 0 DSPK Spironolactone (Spironolactone) 25 Mg Tab 25 MG PO DAILY Blood Pressure Management #30 Ref 0 TAB Tiotropium Inh (Spiriva Respimat Inh) 2.5 Mcg/Act Aero 2 PUFF INH DAILY 2.5 mcg = 1 inhalation COPD #1 Ref 0 INHALER Atorvastatin (Lipitor) 20 Mg Tab 20 MG PO HS Cholesterol Management #30 TAB Carvedilol (Coreg) 3.125 Mg Tab 3.125 MG PO Q12HR Blood Pressure Management #60 TAB Ferrous Sulfate (Ferrous Sulfate) 325 Mg Tab 325 MG PO BID@12,17 mamie #30 TAB Guaifenesin ER 12 HR (Mucinex ER 12 HR) 600 Mg Simon 600 MG PO BID cough #14 TAB Lisinopril (Lisinopril) 5 Mg Tab 2.5 MG PO DAILY Blood Pressure Management #30 TAB Continued Medications: Calcium Carbonate (Antacid) (Tums) 500 Mg Chew 500 MG CHEW PRN HEARTBURN Ref 0 TAB Estradiol (Estradiol) 2 Mg Tab 2 MG PO DAILY Estrogen Supplements #30 Ref 0 TAB Fluticasone-Salmeterol Inh (Advair Diskus Inh) 100-50 Mcg/Blist Aer 1 PUFF INH BID Rinse mouth after use. Asthma Management #1 Ref 0 INHALER Multiple Vitamins W/ Minerals (Preservision Areds 2) 1 Cap 1 CAP PO DAILY Nutritional Supplement Ref 0 CAP Discontinued Medications: Multiple Vitamins W/ Minerals (Centrum) 1 Tab 1 TAB PO DAILY Nutritional Supplement Ref 0 TAB Multiple Vitamins W/ Minerals (Preservision Areds 2) 1 Cap 1 CAP PO DAILY Nutritional Supplement Ref 0 CAP Lucila Inman MD Nov 23, 2016 07:21
--- NOTE | 2016-11-23 07:21 | HHI.FF ---
Face to Face Verification Diagnosis: (1) Abnormal CT scan of lung (2) Respiratory distress (3) Pneumonia (4) Takotsubo cardiomyopathy (5) NSTEMI (non-ST elevated myocardial infarction) (6) Pseudophakia of both eyes (7) AMD (age-related macular degeneration), bilateral Physical Therapy Order: Evaluate and Treat Home Health Nursing Order: Medical education Signs/symptoms of disease process CHF education Medication education-adverse effect Nursing assessment with vital signs I have seen patient Chelo Springer on 11/23/16. My clinical findings support the need for the requested home health care services because: Ltd mobility - disease progression Patient has SOB I certify that my clinical findings support that this patient is homebound because: Post-op weakness Lucila Inman MD Nov 23, 2016 07:21
[2016-11-23] MEDS ORDERED: FERR325T PO (07:27)
[2016-11-23] MEDS ORDERED: LIPI20TA PO (07:27)
[2016-11-23] MEDS ORDERED: MUCI600T PO (07:27)
[2016-11-23] MEDS ORDERED: FURO20TA PO (07:27)
[2016-11-23] MEDS ORDERED: LISI-519 PO (07:27)
[2016-11-23] MEDS ORDERED: PRED10PA PO (07:27)
[2016-11-23] MEDS ORDERED: SPIR25TA PO (07:27)
[2016-11-23] MEDS ORDERED: CARV3.125 PO (07:27)
[2016-11-23] MEDS ORDERED: ASPI81CH CHEW (07:30)
[2016-11-23] MEDS ORDERED: ALPR0.5T3 PO (08:37)
[2016-11-23] MEDS ORDERED: LORazepam 0.5 MG TAB PO ONE (08:45)
[2016-11-23] MEDS ORDERED: BENZOCAINE-MENTHOL (SUGAR FREE) 15 MG-3.6 MG LOZENGE BUCCAL PRN (08:45)
[2016-11-23] MEDS ORDERED: LORazepam 0.5 MG TAB PO PRN ×2 (08:45→14:00)
--- NOTE | 2016-11-23 08:45 | HHI.PR ---
Subjective Remarks Feels improved, still sob with exertion. No n/v/d/c. Complained of dry mouth and she was drinking more water because of it. Advice fluid restriction, patient expressed understanding. She has scant nonproductive cough. Denies chest pain, diaphoresis. No fever or chills. Feels weak. Will have PT consult. Also O2 walking test as patient might need O2 at discharge. Patient is telling me she doesn't want to go to SNF and she would prefer to go home with home health. Objective Vitals Vital Signs Date Time Temp Pulse Resp B/P Pulse Ox O2 Delivery O2 Flow Rate FiO2 11/23/16 08:15 82 11/23/16 07:35 98.2 79 18 131/71 97 11/23/16 07:35 83 11/23/16 07:35 97 Nasal Cannula 1.00 11/23/16 04:00 98.4 78 20 138/87 97 11/23/16 03:00 67 11/23/16 02:00 62 11/23/16 01:00 60 11/23/16 00:00 62 11/23/16 00:00 98.3 76 18 112/63 96 11/22/16 23:00 72 11/22/16 22:00 81 11/22/16 21:00 101 11/22/16 20:00 98.1 84 20 122/63 96 11/22/16 20:00 96 Room Air 11/22/16 20:00 87 11/22/16 19:33 97 11/22/16 19:00 82 11/22/16 18:05 79 11/22/16 17:43 88 11/22/16 16:50 76 11/22/16 15:39 78 11/22/16 15:39 97.8 84 18 136/81 98 11/22/16 14:30 77 11/22/16 14:23 94 21 11/22/16 13:00 78 11/22/16 12:25 74 11/22/16 11:56 71 11/22/16 11:56 97.9 74 18 103/50 98 11/22/16 10:53 82 11/22/16 09:19 84 I/O 11/22/16 11/22/16 11/22/16 11/23/16 11/23/16 11/23/16 06:59 14:59 22:59 06:59 14:59 22:59 Intake Total 600 ml 1260 ml 250 ml Output Total 450 ml 2000 ml 1000 ml Balance 150 ml -740 ml -750 ml Intake Oral 420 ml 1260 ml 50 ml IV Total 180 ml 200 ml Output Urine Total 450 ml 2000 ml 1000 ml # Bowel Movements 1 1 0 Result Diagram: 11/23/16 04211/23/16421 Imaging Last Impressions Chest X-Ray 11/21/16 0000 Signed Impressions: Service Date/Time: Monday, November 21, 2016 20:05 - CONCLUSION: Right pleural effusion and basilar airspace disease suspected. Gus Ledezma MD CT Angiography 11/18/161954 Signed Impressions: Service Date/Time: Friday, November 18, 2016 21:24 - CONCLUSION: Right upper lobe nodule and bilateral infiltrates most likely inflammatory, repeat noncontrast chest CT is suggested in 2-3 months after appropriate clinical therapy. Anuj Stoddard MD Objective Remarks GENERAL: 80 yo female, on BiPaP - SKIN: No rashes, ecchymoses or lesions. Cool and dry. HEAD: Atraumatic. Normocephalic. No temporal or scalp tenderness. EYES: Pupils equal round and reactive. Extraocular motions intact. No scleral icterus. No injection or drainage. ENT: Nose without bleeding, purulent drainage or septal hematoma. Throat without erythema, tonsillar hypertrophy or exudate. Uvula midline. Airway patent. NECK: Trachea midline. No JVD or lymphadenopathy. Supple, nontender, no meningeal signs. CARDIOVASCULAR: Regular rate and rhythm without murmurs, gallops, or rubs. RESPIRATORY: diminished air entry bilaterally. GASTROINTESTINAL: Abdomen soft, non-tender, nondistended. No hepato-splenomegaly , or palpable masses. No guarding. MUSCULOSKELETAL: Extremities without clubbing, cyanosis, or edema. No joint tenderness, effusion, or edema noted. No calf tenderness. Negative Homans sign bilaterally. NEUROLOGICAL: Awake and alert. Cranial nerves II through XII intact. Motor and sensory grossly within normal limits. Five out of 5 muscle strength in all muscle groups. Normal speech. Procedures ECHO: The estimated ejection fraction was in the range of 25% to 30%. Akinesis of the apical myocardium. - Aortic valve: Mild to moderate regurgitation. - Mitral valve: Mild to moderate regurgitation. - Tricuspid valve: Moderate regurgitation. - Pulmonary arteries: Systolic pressure was severely increased. PA peak pressure: 87mm Hg (S). A/P Problem List: (1) NSTEMI (non-ST elevated myocardial infarction) ICD Code: I21.4 Status: Acute (2) Pneumonia ICD Code: J18.9 Status: Acute Assessment and Plan Acute hypoxemic respiratory failure due to pneumonia/ COPD exacerbation was on BiPAP; switched to N/C but still with respiratory distress- started IV steroids and neb treatment, taper down as tolerated Consult pulmonary, appreciate recommendations Add mucinex, Acapella Severe sepsis ( tachycardia/ leukocytosis) due to pneumonia on admission start broad spectrum Iv antibiotics, ass azithromycin- follow the cultures- CBC in am- consult ID, appreciate recommendations NSTEMI: likely trops elevated 2/2 demand ischemia 2/2 cardiomyopathy DC heparin drip- continue aspirin- enzymes trending up. Patient does not complain of chest pain/pressure/nausea/diaphoresis. Consult cardiology, seen by Dr Dawkins appreciate recommendations. Recommends cardiac cath, plan for cardiac cath 11/[address] Duque Check 2D ECHO- reviewed. EF of 25-30 % severely reduced EF. Mild to moderate MV , TV and AV regurgitation. Check lipid panel normal Of note the patient says that she was diagnosed with broken heart syndrome two years ago. Continue ACEI , BB, statin, lasix, spironolactone. S/P cath no ischemic disease, patient has cardiomyopathy. Continue medical management per cardiology Systolic CHF. Mild to moderate MV, TV and AV regurgitation. BNP elevated in 1600. EF of 25-30 % severely reduced EF. Continue BB, ACEI, aldactone, ASA, statin. Continue lasix IV 20 mg. Monitor BP and hold BP meds as BP runs low. Hyperglycemia- with no history of diabetes Accu-check with SSI- check A1c Acute kidney injury: on gentle IV hydration- monitor renal function- BMP in am DVT prophylaxis: on heparin drip Code status: DNR Discussed Condition With Patient, nurse Discussed with the patient son at the request of the patient. Problem Qualifiers (1) Pneumonia: Qualified Code: J18.9 - Pneumonia of both lungs due to infectious organism, unspecified part of lung Lucila Inman MD Nov 23, 2016 08:45
[2016-11-23 08:51] LABS: OVALOCYTES 1+ (NORMAL); SCAN/DIFF AUTO DIFF CONFIRMED
[2016-11-23] MEDS: AZITHROMYCIN 250 MG TAB PO SCH (08:51)
[2016-11-23] MEDS: guaiFENesin E.R. 600 MG TAB PO SCH ×2 (08:51→21:15)
[2016-11-23] MEDS: predniSONE 20 MG TAB PO SCH (08:51)
[2016-11-23] MEDS: SPIRONOLACTONE 25 MG TAB PO SCH (08:51)
[2016-11-23] MEDS: LISINOPRIL 5 MG TAB PO SCH (08:51)
[2016-11-23] MEDS: ASPIRIN 81 MG CHEW TAB CHEW SCH (08:52)
[2016-11-23] MEDS: CARVEDILOL 3.125 MG TAB PO SCH ×2 (08:52→21:15)
[2016-11-23] MEDS: BUDESONIDE-FORMOTEROL 80/4.5 MCG INHALER INH SCH ×2 (08:54→21:16)
[2016-11-23] MEDS: SODIUM CHLORIDE 0.9% FLUSH 5 ML FLUSH IVF SCH ×2 (08:54→21:15)
[2016-11-23] MEDS ORDERED: FUROSEMIDE 40 MG/4 ML VIAL IV PUSH ONE (09:00)
--- NOTE | 2016-11-23 09:23 | PD.CARD.PN ---
Subjective Subjective Remarks Pt feels well, no complaints, going home tomorrow apparently. Objective Medications Administered Medications Medications (Trade) Dose Ordered Sig/Cici Route PRN Reason Start Time Stop Time Status Last Admin Dose Admin Cefepime HCl/ Sodium Chloride (Maxipime Inj/NS Inj) 100 ml @ 200 mls/hr Q8H IV 11/19/16 06:00 11/23/16 04:36 Budesonide/ Formoterol Fumarate (Symbicort 80-4.5 Mcg Inh) 2 puff BID INH AST 11/19/16 09:00 11/23/16 08:54 Aspirin (Aspirin Chew) 324 mg DAILY CHEW 11/19/16 09:00 11/23/16 08:52 Atorvastatin Calcium (Lipitor) 20 mg HS PO 11/19/16 21:00 11/22/16 20:49 Azithromycin (Zithromax) 500 mg DAILY PO 11/20/16 09:00 11/23/16 08:51 Prednisone (Deltasone) 40 mg DAILY PO 11/21/16 09:00 11/23/16 08:51 Carvedilol (Coreg) 3.125 mg Q12HR PO 11/20/16 21:00 11/23/16 08:52 Lisinopril (Prinivil) 2.5 mg DAILY PO 11/21/16 09:00 11/23/16 08:51 Spironolactone (Aldactone) 25 mg DAILY PO 11/21/16 09:00 11/23/16 08:51 IV Flush (NS Flush) 2 ml BID IVF 11/20/16 21:00 11/23/16 08:54 Ferrous Sulfate (Ferrous Sulfate) 325 mg BID@12,17 PO 11/21/16 17:00 11/22/16 17:42 Guaifenesin (Mucinex Er) 600 mg BID PO 11/22/16 21:00 11/23/16 08:51 Vital Signs / I&O Vital Signs Date Time Temp Pulse Resp B/P Pulse Ox O2 Delivery O2 Flow Rate FiO2 11/23/16 09:04 83 11/23/16 08:15 82 11/23/16 07:35 98.2 79 18 131/71 97 11/23/16 07:35 83 11/23/16 07:35 97 Nasal Cannula 1.00 11/23/16 04:00 98.4 78 20 138/87 97 11/23/16 03:00 67 11/23/16 02:00 62 11/23/16 01:00 60 11/23/16 00:00 62 11/23/16 00:00 98.3 76 18 112/63 96 11/22/16 23:00 72 11/22/16 22:00 81 11/22/16 21:00 101 11/22/16 20:00 98.1 84 20 122/63 96 11/22/16 20:00 96 Room Air 11/22/16 20:00 87 11/22/16 19:33 97 11/22/16 19:00 82 11/22/16 18:05 79 11/22/16 17:43 88 11/22/16 16:50 76 11/22/16 15:39 78 11/22/16 15:39 97.8 84 18 136/81 98 11/22/16 14:30 77 11/22/16 14:23 94 21 11/22/16 13:00 78 11/22/16 12:25 74 11/22/16 11:56 71 11/22/16 11:56 97.9 74 18 103/50 98 11/22/16 10:53 82 I/O 11/22/16 11/22/16 11/22/16 11/23/16 11/23/16 11/23/16 07:00 15:00 23:00 07:00 15:00 23:00 Intake Total 600 ml 1260 ml 250 ml Output Total 450 ml 2000 ml 1000 ml Balance 150 ml -740 ml -750 ml Intake Oral 420 ml 1260 ml 50 ml IV Total 180 ml 200 ml Output Urine Total 450 ml 2000 ml 1000 ml # Bowel Movements 1 1 0 Physical Exam GENERAL: This is a well-nourished, well-developed patient, in no apparent distress. CARDIOVASCULAR: Regular rate and rhythm without murmurs, gallops, or rubs. RESPIRATORY: decreased breath sounds GASTROINTESTINAL: Abdomen soft, non-tender, nondistended. Normal active bowel sounds MUSCULOSKELETAL: Extremities without clubbing, cyanosis, or edema. NEURO: Alert & Oriented x4 to person, place, time, situation. Moves all ext x4 Laboratory Laboratory Tests Test 11/22/16 11/23/16 11:30 04:22 Vancomycin Level Trough 12.3 MCG/ML White Blood Count 17.9 TH/MM3 Red Blood Count 4.88 MIL/MM3 Hemoglobin 9.3 GM/DL Hematocrit 29.2 % Mean Corpuscular Volume 59.9 FL Mean Corpuscular Hemoglobin 19.2 PG Mean Corpuscular Hemoglobin 32.0 % Concent Red Cell Distribution Width 16.9 % Platelet Count 307 TH/MM3 Mean Platelet Volume 9.0 FL Neutrophils (%) (Auto) 78.8 % Lymphocytes (%) (Auto) 14.9 % Monocytes (%) (Auto) 5.8 % Eosinophils (%) (Auto) 0.4 % Basophils (%) (Auto) 0.1 % Neutrophils # (Auto) 14.1 TH/MM3 Lymphocytes # (Auto) 2.7 TH/MM3 Monocytes # (Auto) 1.0 TH/MM3 Eosinophils # (Auto) 0.1 TH/MM3 Basophils # (Auto) 0.0 TH/MM3 CBC Comment AUTO DIFF Differential Comment AUTO DIFF CONFIRMED Polychromasia 2.0 % Ovalocytes 1+ Sodium Level 140 MEQ/L Potassium Level 3.9 MEQ/L Chloride Level 103 MEQ/L Carbon Dioxide Level 26.0 MEQ/L Anion Gap 11 MEQ/L Blood Urea Nitrogen 30 MG/DL Creatinine 0.77 MG/DL Estimat Glomerular Filtration 72 ML/MIN Rate Random Glucose 77 MG/DL Calcium Level 7.6 MG/DL Magnesium Level 2.3 MG/DL B-Type Natriuretic Peptide 961 PG/ML Imaging Last Impressions Chest X-Ray 11/21/16 0000 Signed Impressions: Service Date/Time: Monday, November 21, 2016 20:05 - CONCLUSION: Right pleural effusion and basilar airspace disease suspected. Gus Ledezma MD CT Angiography 11/18/[id number] Signed Impressions: Service Date/Time: Friday, November 18, 2016 21:24 - CONCLUSION: Right upper lobe nodule and bilateral infiltrates most likely inflammatory, repeat noncontrast chest CT is suggested in 2-3 months after appropriate clinical therapy. Anuj Stoddard MD Assessment and Plan Problem List: (1) Takotsubo cardiomyopathy Assessment and Plan: On VIKI/BB, likely due to stress of severe copd exacerbation. (2) NSTEMI (non-ST elevated myocardial infarction) Assessment and Plan: normal coronaries. (3) Respiratory distress Assessment and Plan: resolved (4) Pneumonia Assessment and Plan: per medical team Assessment and Plan Ok to d/c from cardiac standpoint, I will see her in my office in 1-2 weeks. Problem Qualifiers (1) Pneumonia: Qualified Code: J18.9 - Pneumonia of both lungs due to infectious organism, unspecified part of lung Porfirio Dawkins MD Nov 23, 2016 09:23
[2016-11-23] MEDS: VANCOMYCIN INJ 1,250 MG in SODIUM CHLOR 0.9% 250 ML INJ 250 ML IV SCH (11:48)
[2016-11-23] MEDS: FERROUS SULFATE 325 MG (65 MG ELEMENTAL IRON) TAB PO SCH ×2 (11:48→17:51)
[2016-11-23] MEDS: FUROSEMIDE 20 MG TAB PO SCH (17:51)
--- NOTE | 2016-11-23 18:12 | HHI.PR ---
Subjective Remarks C/O some wheezing. and On o2 at 2 L. May need home O2. No fever or chest pains. On IV antibiotics, Vanco, Cefipime, zithro Objective Vital Signs Date Time Temp Pulse Resp B/P Pulse Ox O2 Delivery O2 Flow Rate FiO2 11/23/16 18:05 77 11/23/16 17:36 75 11/23/16 16:15 85 11/23/16 15:37 74 11/23/16 15:37 98.1 82 18 123/70 94 11/23/16 14:07 80 11/23/16 13:12 82 11/23/16 12:17 79 11/23/16 11:05 98.0 84 20 135/74 97 11/23/16 11:05 90 11/23/16 10:43 2.00 11/23/16 10:15 102 11/23/16 09:04 83 11/23/16 08:15 82 11/23/16 07:35 98.2 79 18 131/71 97 11/23/16 07:35 83 11/23/16 07:35 97 Nasal Cannula 1.00 11/23/16 04:00 98.4 78 20 138/87 97 11/23/16 03:00 67 11/23/16 02:00 62 11/23/16 01:00 60 11/23/16 00:00 62 11/23/16 00:00 98.3 76 18 112/63 96 11/22/16 23:00 72 11/22/16 22:00 81 11/22/16 21:00 101 11/22/16 20:00 98.1 84 20 122/63 96 11/22/16 20:00 96 Room Air 11/22/16 20:00 87 11/22/16 19:33 97 11/22/16 19:00 82 I/O 11/22/16 11/22/16 11/22/16 11/23/16 11/23/16 11/23/16 06:59 14:59 22:59 06:59 14:59 22:59 Intake Total 600 ml 1260 ml 250 ml 840 ml Output Total 450 ml 2000 ml 1000 ml 2150 ml Balance 150 ml -740 ml -750 ml -1310 ml Intake Oral 420 ml 1260 ml 50 ml 840 ml IV Total 180 ml 200 ml Output Urine Total 450 ml 2000 ml 1000 ml 2150 ml # Bowel Movements 1 1 0 0 Result Diagram: 11/23/1642111/23/16421 Objective Remarks GENERAL: Elderly W/F who is alert. No distress . Mild pallor, no Icterus HEENT: Exam unremarkable. Clear throat NECK: Without adenopathy or thyroid enlargement. Central trachea. CHEST: Decreased breath sounds at bases. Occ basal crackles. CARDIAC: PMI distant. S1-S2 audible. No murmur or rub. ABDOMEN: Lax, bowel sounds audible. EXTREMITIES: No clubbing, cyanosis or edema. Assessment and Plan Assessment and Plan IMPRESSION 1. COPD and exacerbation. 2. coronary artery disease. 3. Possible basal pneumonia 4. Right lung nodule. Plan : 1. O2 2l at HS prn 2. Robitussin Ac syrup 10 CC qid prn 3. Cont Antibiotics per ID . 4. Chest X ray in am 5. Will need F/U CT chest in 6 mths. 6. IS at bedside qid 7. Cont prednisone 30 mg daily. Konstantin Martinez MD Nov 23, 2016 18:12
[2016-11-23] MEDS: ATORVASTATIN 20 MG TAB PO SCH (21:15)
[2016-11-24] VITALS (26 sets, daily range): BP systolic 94–154; BP diastolic 46–73; PULSE 41–85; RESP 16–20; TEMP 97.3–98.8; O2SAT 92–98
--- NOTE | 2016-11-24 05:56 | RADRPT ---
EXAM DATE/TIME: 11/24/2016 04:43 [facility] COMPARISON: CHEST SINGLE AP, November 21, 2016, 20:05. INDICATIONS : Shortness of breath, possible pulmonary disease. MEDICAL HISTORY : Chronic obstructive pulmonary disease. Asthma SURGICAL HISTORY : None. ENCOUNTER: Subsequent ACUITY: 1 week PAIN SCORE: 0/10 LOCATION: Bilateral chest FINDINGS: A single view of the chest demonstrates the lungs to be symmetrically aerated without evidence of mas s, infiltrate or effusion. The cardiomediastinal contours are unremarkable. Osseous structures are intact. CONCLUSION: Lungs are now clear. Logan Jules MD on November 24, 2016 at 5:54 Board Certified Radiologist. This report was verified electronically.
[2016-11-24] MEDS: CEFEPIME INJ 1,000 MG in SODIUM CHLORIDE 0.9% INJ 100 ML IV SCH ×3 (06:32→21:50)
[2016-11-24 06:36] LABS: AUTOMATED NEUTROPHIL # 14.3 TH/MM3 (1.8-7.7); BASOPHIL % 0.1 % (0.0-2.0); EOSINOPHIL # 0.2 TH/MM3 (0-0.4); HEMATOCRIT 28.4 % (35.0-46.0); LYMPH % 16.3 % (9.0-44.0); LYMPHOCYTE # 3.1 TH/MM3 (1.0-4.8); MEAN CELL VOLUME 59.9 FL (80.0-100.0); MEAN CORPUSCULAR HEMOGLOBIN 19.1 PG (27.0-34.0); MEAN CORPUSCULAR HGB CONC 31.8 % (32.0-36.0); MONO % 7.1 % (0.0-8.0); NEUT % 75.5 % (16.0-70.0); PLATELET COUNT 338 TH/MM3 (150-450); RED BLOOD COUNT 4.73 MIL/MM3 (4.00-5.30); RED CELL DISTRIBUTION WIDTH 16.7 % (11.6-17.2)
[2016-11-24] MEDS: INSULIN ASPART SUPPLEMENTAL SCALE SQ SCH ×4 (07:00→21:00)
[2016-11-24 07:10] LABS: BICARBONATE 25.2 MEQ/L (21.0-32.0); HEMO FLAGS AUTO DIFF; MAGNESIUM 2.1 MG/DL (1.5-2.5); POTASSIUM 3.6 MEQ/L (3.5-5.1)
[2016-11-24] MEDS ORDERED: AZIT500T2 PO (07:41)
[2016-11-24] MEDS: guaiFENesin E.R. 600 MG TAB PO SCH ×2 (08:02→21:51)
[2016-11-24] MEDS: CARVEDILOL 3.125 MG TAB PO SCH ×2 (08:02→21:52)
[2016-11-24] MEDS: AZITHROMYCIN 250 MG TAB PO SCH (08:02)
[2016-11-24] MEDS: ASPIRIN 81 MG CHEW TAB CHEW SCH (08:02)
[2016-11-24] MEDS: predniSONE 20 MG TAB PO SCH (08:03)
[2016-11-24] MEDS: LISINOPRIL 5 MG TAB PO SCH (08:03)
[2016-11-24] MEDS: FUROSEMIDE 20 MG TAB PO SCH (08:03)
[2016-11-24] MEDS: SPIRONOLACTONE 25 MG TAB PO SCH (08:03)
[2016-11-24] MEDS: BUDESONIDE-FORMOTEROL 80/4.5 MCG INHALER INH SCH ×2 (08:04→21:53)
[2016-11-24] MEDS: SODIUM CHLORIDE 0.9% FLUSH 5 ML FLUSH IVF SCH ×2 (08:04→21:52)
[2016-11-24 10:28] LABS: OVALOCYTES 1+ (NORMAL); PLATELET ESTIMATE SMEAR NORMAL (NORMAL); PLATELET MORPHOLOGY ENLARGED (NORMAL); SCAN/DIFF AUTO DIFF CONFIRMED; TEARDROP RBCS 1+ (NORMAL)
--- NOTE | 2016-11-24 10:45 | HHI.PR ---
Subjective Remarks Feels much better today. She is satting well on room air now. However she is still sob especially with exertion. Scant cough. No fever or chills. No n/v/d/c. Says anxiety meds also help. No palpitations. No LE edema. BNP improving. Objective Vitals Vital Signs Date Time Temp Pulse Resp B/P Pulse Ox O2 Delivery O2 Flow Rate FiO2 11/24/16 10:00 76 11/24/16 09:00 70 11/24/16 08:00 72 11/24/16 07:30 98.4 82 20 139/72 97 11/24/16 07:00 70 11/24/16 07:00 97 Room Air 11/24/16 06:00 67 11/24/16 05:00 61 11/24/16 04:00 66 11/24/16 03:00 98.8 72 18 126/64 98 11/24/16 03:00 67 11/24/16 02:00 63 11/24/16 01:00 62 11/24/16 00:00 67 11/23/16 23:00 69 11/23/16 23:00 98.2 74 20 102/52 96 11/23/16 22:00 68 11/23/16 21:00 69 11/23/16 19:52 96 21 11/23/16 19:00 97 Room Air 11/23/16 19:00 98.0 81 20 124/62 97 11/23/16 19:00 66 11/23/16 18:05 77 11/23/16 17:36 75 11/23/16 16:15 85 11/23/16 15:37 74 11/23/16 15:37 98.1 82 18 123/70 94 11/23/16 14:07 80 11/23/16 13:12 82 11/23/16 12:17 79 11/23/16 11:05 98.0 84 20 135/74 97 11/23/16 11:05 90 11/23/16 10:43 2.00 I/O 11/23/16 11/23/16 11/23/16 11/24/16 11/24/16 11/24/16 06:59 14:59 22:59 06:59 14:59 22:59 Intake Total 250 ml 840 ml 500 ml Output Total 1000 ml 2150 ml 400 ml Balance -750 ml -1310 ml 100 ml Intake Oral 50 ml 840 ml 500 ml IV Total 200 ml Output Urine Total 1000 ml 2150 ml 400 ml # Bowel Movements 0 0 Result Diagram: 11/24/1662011/24/16620 Imaging Last Impressions Chest X-Ray 11/24/16599 Signed Impressions: Service Date/Time: Thursday, November 24, 2016 04:43 - CONCLUSION: Lungs are now clear. Logan Jules MD CT Angiography 11/18/161954 Signed Impressions: Service Date/Time: Friday, November 18, 2016 21:24 - CONCLUSION: Right upper lobe nodule and bilateral infiltrates most likely inflammatory, repeat noncontrast chest CT is suggested in 2-3 months after appropriate clinical therapy. Anju Stoddard MD Objective Remarks GENERAL: 80 yo female, on BiPaP - SKIN: No rashes, ecchymoses or lesions. Cool and dry. HEAD: Atraumatic. Normocephalic. No temporal or scalp tenderness. EYES: Pupils equal round and reactive. Extraocular motions intact. No scleral icterus. No injection or drainage. ENT: Nose without bleeding, purulent drainage or septal hematoma. Throat without erythema, tonsillar hypertrophy or exudate. Uvula midline. Airway patent. NECK: Trachea midline. No JVD or lymphadenopathy. Supple, nontender, no meningeal signs. CARDIOVASCULAR: Regular rate and rhythm without murmurs, gallops, or rubs. RESPIRATORY: diminished air entry bilaterally. GASTROINTESTINAL: Abdomen soft, non-tender, nondistended. No hepato-splenomegaly , or palpable masses. No guarding. MUSCULOSKELETAL: Extremities without clubbing, cyanosis, or edema. No joint tenderness, effusion, or edema noted. No calf tenderness. Negative Homans sign bilaterally. NEUROLOGICAL: Awake and alert. Cranial nerves II through XII intact. Motor and sensory grossly within normal limits. Five out of 5 muscle strength in all muscle groups. Normal speech. Procedures ECHO: The estimated ejection fraction was in the range of 25% to 30%. Akinesis of the apical myocardium. - Aortic valve: Mild to moderate regurgitation. - Mitral valve: Mild to moderate regurgitation. - Tricuspid valve: Moderate regurgitation. - Pulmonary arteries: Systolic pressure was severely increased. PA peak pressure: 87mm Hg (S). A/P Problem List: (1) NSTEMI (non-ST elevated myocardial infarction) ICD Code: I21.4 Status: Acute (2) Pneumonia ICD Code: J18.9 Status: Acute Assessment and Plan Acute hypoxemic respiratory failure due to pneumonia/ COPD exacerbation was on BiPAP; switched to nasal canula, weaned off, but still with respiratory distress and desatting with exertion- received IV steroids and neb treatment, tapered down as tolerated Consult pulmonary, appreciate recommendations Add mucinex, Acapella Sputum cx obtained and NTD Severe sepsis ( tachycardia/ leukocytosis) due to pneumonia on admission CT chest findings reviewed findings discussed with the patient. Patient was adviced to follow up as OP and plan to repeat CT as OP, she expressed understanding. Note patient has a h/o heavy smoking and she quit smoking 30 years ago. Started broad spectrum Iv antibiotics, added azithromycin- follow the cultures - CBC in am- consult ID, appreciate recommendations Sputum cx nTD Blood cx NTD NSTEMI: likely trops elevated 2/2 demand ischemia 2/2 cardiomyopathy DC heparin drip- continue aspirin- enzymes trending up. Patient does not complain of chest pain/pressure/nausea/diaphoresis. Consult cardiology, seen by Dr Dawkins appreciate recommendations. Recommends cardiac cath, plan for cardiac cath 11/[address] Duque Check 2D ECHO- reviewed. EF of 25-30 % severely reduced EF. Mild to moderate MV , TV and AV regurgitation. Check lipid panel normal Of note the patient says that she was diagnosed with broken heart syndrome two years ago. Continue ACEI , BB, statin, lasix, spironolactone. S/P cath no ischemic disease, patient has cardiomyopathy. Continue medical management per cardiology Nonischemic cardiomyopathy. Systolic CHF. Mild to moderate MV, TV and AV regurgitation. BNP elevated in 1600. EF of 25-30 % severely reduced EF. Continue BB, ACEI, aldactone, ASA, statin. Continue lasix IV 20 mg. Monitor BP and hold BP meds as BP runs low. Anxiety: Start ativan prn. To follow up as OP. Hyperglycemia- with no history of diabetes Accu-check with SSI- check A1c Acute kidney injury: monitor avoid as possible nephrotoxic agents. DVT prophylaxis: on heparin drip Code status: DNR Discussed Condition With Patient, nurse Discussed with the patient's son at the request of the patient on 11/23. Problem Qualifiers (1) Pneumonia: Qualified Code: J18.9 - Pneumonia of both lungs due to infectious organism, unspecified part of lung Lucila Inman MD Nov 24, 2016 10:45
[2016-11-24] MEDS: FERROUS SULFATE 325 MG (65 MG ELEMENTAL IRON) TAB PO SCH ×2 (12:13→17:00)
[2016-11-24] MEDS: VANCOMYCIN INJ 1,250 MG in SODIUM CHLOR 0.9% 250 ML INJ 250 ML IV SCH (12:14)
--- NOTE | 2016-11-24 15:19 | HHI.PR ---
Subjective Remarks C/O some wheezing. and Off O2 sat 96. Will need 6 min walk test . No fever or chest pains. CXR stable. On IV antibiotics, Vanco, Cefipime, zithro Objective Vital Signs Date Time Temp Pulse Resp B/P Pulse Ox O2 Delivery O2 Flow Rate FiO2 11/24/16 12:23 125/64 11/24/16 11:00 68 11/24/16 11:00 98.0 68 20 94/46 97 11/24/16 10:00 76 11/24/16 09:00 70 11/24/16 08:00 72 11/24/16 07:30 98.4 82 20 139/72 97 11/24/16 07:00 70 11/24/16 07:00 97 Room Air 11/24/16 06:00 67 11/24/16 05:00 61 11/24/16 04:00 66 11/24/16 03:00 98.8 72 18 126/64 98 11/24/16 03:00 67 11/24/16 02:00 63 11/24/16 01:00 62 11/24/16 00:00 67 11/23/16 23:00 69 11/23/16 23:00 98.2 74 20 102/52 96 11/23/16 22:00 68 11/23/16 21:00 69 11/23/16 19:52 96 21 11/23/16 19:00 97 Room Air 11/23/16 19:00 98.0 81 20 124/62 97 11/23/16 19:00 66 11/23/16 18:05 77 11/23/16 17:36 75 11/23/16 16:15 85 11/23/16 15:37 74 11/23/16 15:37 98.1 82 18 123/70 94 I/O 11/23/16 11/23/16 11/23/16 11/24/16 11/24/16 11/24/16 06:59 14:59 22:59 06:59 14:59 22:59 Intake Total 250 ml 840 ml 500 ml Output Total 1000 ml 2150 ml 400 ml Balance -750 ml -1310 ml 100 ml Intake Oral 50 ml 840 ml 500 ml IV Total 200 ml Output Urine Total 1000 ml 2150 ml 400 ml # Bowel Movements 0 0 Result Diagram: 11/24/1662011/24/16620 Objective Remarks GENERAL: Elderly W/F who is alert. No distress . Mild pallor, no Icterus HEENT: Exam unremarkable. Clear throat NECK: Without adenopathy or thyroid enlargement. Central trachea. CHEST: Decreased breath sounds at bases. Occ basal crackles. CARDIAC: PMI distant. S1-S2 audible. No murmur or rub. ABDOMEN: Lax, bowel sounds audible. EXTREMITIES: No clubbing, cyanosis but has mild edema. Assessment and Plan Assessment and Plan IMPRESSION 1. COPD and exacerbation. 2. coronary artery disease.STEMI. 3. Possible basal pneumonia 4. Right lung nodule. Plan : 1. D/C O2 2. Robitussin Ac syrup 10 CC qid prn 3. Cont Antibiotics per ID . 4. Will get 6 min walk test fro O2 sats 5. Will need F/U CT chest in 6 mths. 6. IS at bedside qid 7. Cont prednisone 30 mg daily. Konstantin Martinez MD Nov 24, 2016 15:19
[2016-11-24] MEDS: ATORVASTATIN 20 MG TAB PO SCH (21:52)
[2016-11-25] VITALS (14 sets, daily range): BP systolic 128–155; BP diastolic 64–86; PULSE 62–88; RESP 16–20; TEMP 97.5–98.3; O2SAT 95–97
[2016-11-25] MEDS: CEFEPIME INJ 1,000 MG in SODIUM CHLORIDE 0.9% INJ 100 ML IV SCH (05:44)
[2016-11-25] MEDS: INSULIN ASPART SUPPLEMENTAL SCALE SQ SCH ×2 (07:00→11:00)
[2016-11-25 07:59] LABS: AUTOMATED NEUTROPHIL # 16.8 TH/MM3 (1.8-7.7); BASOPHIL % 0.2 % (0.0-2.0); EOSINOPHIL # 0.4 TH/MM3 (0-0.4); EOSINOPHIL % 1.6 % (0.0-4.0); HEMATOCRIT 29.7 % (35.0-46.0); LYMPH % 16.8 % (9.0-44.0); LYMPHOCYTE # 3.8 TH/MM3 (1.0-4.8); MEAN CELL VOLUME 59.4 FL (80.0-100.0); MEAN CORPUSCULAR HEMOGLOBIN 19.1 PG (27.0-34.0); MEAN CORPUSCULAR HGB CONC 32.1 % (32.0-36.0); MONO % 7.9 % (0.0-8.0); NEUT % 73.5 % (16.0-70.0); PLATELET COUNT 456 TH/MM3 (150-450); RED BLOOD COUNT 4.99 MIL/MM3 (4.00-5.30); WHITE BLOOD COUNT 22.9 TH/MM3 (4.0-11.0)
[2016-11-25 08:05] LABS: HEMO FLAGS AUTO DIFF
[2016-11-25] MEDS: ASPIRIN 81 MG CHEW TAB CHEW SCH (08:11)
[2016-11-25] MEDS: LISINOPRIL 5 MG TAB PO SCH (08:11)
[2016-11-25] MEDS: CARVEDILOL 3.125 MG TAB PO SCH (08:12)
[2016-11-25] MEDS: SPIRONOLACTONE 25 MG TAB PO SCH (08:12)
[2016-11-25] MEDS: guaiFENesin E.R. 600 MG TAB PO SCH (08:12)
[2016-11-25] MEDS: AZITHROMYCIN 250 MG TAB PO SCH (08:12)
[2016-11-25] MEDS: SODIUM CHLORIDE 0.9% FLUSH 5 ML FLUSH IVF SCH (08:13)
--- NOTE | 2016-11-25 08:28 | HHI.PR ---
Subjective Remarks Cultures negative. Patient feels improved. She is breathing much better, does not require O2. Passed O2 walking test no need for O2 at home. Denies chest pain, n/v/d/c. Denies fever or chills. Scant nonproductive cough. Feels comfortable to go home. Objective Vitals Vital Signs Date Time Temp Pulse Resp B/P Pulse Ox O2 Delivery O2 Flow Rate FiO2 11/25/16 06:00 64 11/25/16 05:00 64 11/25/16 04:00 79 11/25/16 03:00 79 11/25/16 03:00 98.3 76 16 131/64 97 11/25/16 02:00 77 11/25/16 01:00 62 11/25/16 00:00 74 11/24/16 23:00 75 11/24/16 23:00 97.7 74 16 121/67 97 11/24/16 22:44 92 21 11/24/16 22:00 85 11/24/16 21:00 80 11/24/16 20:00 76 11/24/16 19:00 97.3 85 16 148/73 96 11/24/16 19:00 96 Room Air 11/24/16 19:00 80 11/24/16 18:00 82 11/24/16 17:00 77 11/24/16 16:00 41 11/24/16 15:00 98.5 82 20 154/65 95 11/24/16 15:00 78 11/24/16 13:00 73 11/24/16 12:23 125/64 11/24/16 12:00 73 11/24/16 11:00 68 11/24/16 11:00 98.0 68 20 94/46 97 11/24/16 10:00 76 11/24/16 09:00 70 I/O 11/24/16 11/24/16 11/24/16 11/25/16 11/25/16 11/25/16 07:00 15:00 23:00 07:00 15:00 23:00 Intake Total 500 ml 1240 ml 440 ml Output Total 400 ml 1300 ml 650 ml Balance 100 ml -60 ml -210 ml Intake Oral 500 ml 840 ml 240 ml IV Total 400 ml 200 ml Output Urine Total 400 ml 1300 ml 650 ml # Bowel Movements 0 Result Diagram: 11/25/16 0705 11/24/16 0621 Imaging Last Impressions Chest X-Ray 11/24/16 0600 Signed Impressions: Service Date/Time: Thursday, November 24, 2016 04:43 - CONCLUSION: Lungs are now clear. Logan Jules MD CT Angiography 11/18/161954 Signed Impressions: Service Date/Time: Friday, November 18, 2016 21:24 - CONCLUSION: Right upper lobe nodule and bilateral infiltrates most likely inflammatory, repeat noncontrast chest CT is suggested in 2-3 months after appropriate clinical therapy. Anuj Stoddard MD Objective Remarks GENERAL: 80 yo female, on BiPaP - SKIN: No rashes, ecchymoses or lesions. Cool and dry. HEAD: Atraumatic. Normocephalic. No temporal or scalp tenderness. EYES: Pupils equal round and reactive. Extraocular motions intact. No scleral icterus. No injection or drainage. ENT: Nose without bleeding, purulent drainage or septal hematoma. Throat without erythema, tonsillar hypertrophy or exudate. Uvula midline. Airway patent. NECK: Trachea midline. No JVD or lymphadenopathy. Supple, nontender, no meningeal signs. CARDIOVASCULAR: Regular rate and rhythm without murmurs, gallops, or rubs. RESPIRATORY: diminished air entry bilaterally. GASTROINTESTINAL: Abdomen soft, non-tender, nondistended. No hepato-splenomegaly , or palpable masses. No guarding. MUSCULOSKELETAL: Extremities without clubbing, cyanosis, or edema. No joint tenderness, effusion, or edema noted. No calf tenderness. Negative Homans sign bilaterally. NEUROLOGICAL: Awake and alert. Cranial nerves II through XII intact. Motor and sensory grossly within normal limits. Five out of 5 muscle strength in all muscle groups. Normal speech. Procedures ECHO: The estimated ejection fraction was in the range of 25% to 30%. Akinesis of the apical myocardium. - Aortic valve: Mild to moderate regurgitation. - Mitral valve: Mild to moderate regurgitation. - Tricuspid valve: Moderate regurgitation. - Pulmonary arteries: Systolic pressure was severely increased. PA peak pressure: 87mm Hg (S). A/P Problem List: (1) NSTEMI (non-ST elevated myocardial infarction) ICD Code: I21.4 Status: Acute (2) Pneumonia ICD Code: J18.9 Status: Acute Assessment and Plan Acute hypoxemic respiratory failure due to pneumonia/ COPD exacerbation was on BiPAP; switched to nasal canula, weaned off. Satting well on room air now, passed O2 walking test- received IV steroids and neb treatment, tapered down as tolerated Consult pulmonary, appreciate recommendations Add mucinex, Acapella Sputum cx obtained and negative Blood cx negative Severe sepsis ( tachycardia/ leukocytosis) due to pneumonia on admission CT chest findings reviewed findings discussed with the patient. Patient was adviced to follow up as OP and plan to repeat CT as OP, she expressed understanding. Note patient has a h/o heavy smoking and she quit smoking 30 years ago. Started broad spectrum Iv antibiotics, added azithromycin- follow the cultures - CBC in am- consult ID, appreciate recommendations Sputum cx NTD Blood cx NTD Neg legionella /Pneumococcal antigen DC vanco, cefepime if BC remain negative per ID specialist Dr Kim. Continue azithro. Patient with leukocytosis, likely reactive. Afebrile. NSTEMI: likely trops elevated 2/2 demand ischemia 2/2 cardiomyopathy DC heparin drip- continue aspirin- enzymes trending up. Patient does not complain of chest pain/pressure/nausea/diaphoresis. Consult cardiology, seen by Dr Dawkins appreciate recommendations. Recommends cardiac cath, plan for cardiac cath 11/[address] Duque Check 2D ECHO- reviewed. EF of 25-30 % severely reduced EF. Mild to moderate MV , TV and AV regurgitation. Check lipid panel normal Of note the patient says that she was diagnosed with broken heart syndrome two years ago. Continue ACEI , BB, statin, lasix, spironolactone. S/P cath no ischemic disease, patient has cardiomyopathy. Continue medical management per cardiology Nonischemic cardiomyopathy. Systolic CHF. Mild to moderate MV, TV and AV regurgitation. BNP elevated in 1600. EF of 25-30 % severely reduced EF. Continue BB, ACEI, aldactone, ASA, statin. Continue lasix IV 20 mg. Monitor BP and hold BP meds as BP runs low. Anxiety: Start ativan prn. To follow up as OP. Hyperglycemia- with no history of diabetes Accu-check with SSI- check A1c Acute kidney injury: monitor avoid as possible nephrotoxic agents. DVT prophylaxis: on heparin drip Code status: DNR Discussed Condition With Patient, nurse Improved significantly. Plan to DC home with home health. To follow up as OP with PCP and consultants. Problem Qualifiers (1) Pneumonia: Qualified Code: J18.9 - Pneumonia of both lungs due to infectious organism, unspecified part of lung Lucila Inman MD Nov 25, 2016 08:27
[2016-11-25] MEDS ORDERED: FUROSEMIDE 20 MG TAB PO SCH (09:00)
[2016-11-25] MEDS ORDERED: predniSONE 20 MG TAB PO SCH (09:00)
[2016-11-25 09:20] LABS: BICARBONATE 25.2 MEQ/L (21.0-32.0); POTASSIUM 3.4 MEQ/L (3.5-5.1)
[2016-11-25] MEDS ORDERED: TIOT12.9 INH (10:09)
[2016-11-25] MEDS ORDERED: POTASSIUM CHLORIDE 25 MEQ EFFERVESCENT TAB PO ONE (11:00)
[2016-11-25] MEDS: FERROUS SULFATE 325 MG (65 MG ELEMENTAL IRON) TAB PO SCH (12:00)
[2016-11-25 14:25] LABS: OVALOCYTES 2+ (NORMAL); TEARDROP RBCS 1+ (NORMAL)
[2016-11-25 14:26] LABS: SCAN/DIFF AUTO DIFF CONFIRMED
[2016-11-26] MEDS ORDERED: PHARMACY ORDERED LAB XX ONE (11:45)
--- NOTE | 2016-11-30 08:43 | RSPPFT ---
DATE OF PROCEDURE: 11/22/16 COMMENTS: Spirometry with FEV1 of 0.5 at 35% of predicted, FVC of 1.2 at 56%, FEF 25-75 is 16% of predicted. Post-bronchodilator study demonstrated no significant change. Flow volume loop suggest severe obstruction. IMPRESSION: 1. Severe obstructive disease. 2. No significant improvements following use of bronchodilator.
[2016-12-04] MEDS ORDERED: VITA250T3 PO (10:07)
[2016-12-04] MEDS ORDERED: ASPI325T PO (10:07)
[2016-12-04] MEDS ORDERED: MULTTAB67 PO (10:07)
== END 2016-11-25 13:01 | disposition home or self-care (01) | DRG 280 ==
LOC: NEPE 18:20 → NEDA 22:18 → HCIS 11-19 00:48
PROVIDERS: ADMIT Hospitalist; ATTEND Hospitalist
PROC: B2111ZZ Fluoroscopy of Multiple Coronary Arteries using Low Osmolar Contrast (ICD-10-PCS; 2016-11-20)
PROC: B2151ZZ Fluoroscopy of Left Heart using Low Osmolar Contrast (ICD-10-PCS; 2016-11-20)
PROC: B41FZZZ Fluoroscopy of Right Lower Extremity Arteries (ICD-10-PCS; 2016-11-20)
PROC: 4A023N7 Measurement of Cardiac Sampling and Pressure, Left Heart, Percutaneous Approach (ICD-10-PCS; principal; 2016-11-20 15:00)
DX: I21.4 Non-ST elevation (NSTEMI) myocardial infarction (principal); J18.9 Pneumonia, unspecified organism; J96.01 Acute respiratory failure with hypoxia; N17.9 Acute kidney failure, unspecified; E87.2 Acidosis; I42.9 Cardiomyopathy, unspecified; J44.1 Chronic obstructive pulmonary disease with (acute) exacerbation; I50.20 Unspecified systolic (congestive) heart failure; I51.81 Takotsubo syndrome; I25.10 Atherosclerotic heart disease of native coronary artery without angina pectoris; M19.90 Unspecified osteoarthritis, unspecified site; Z66 Do not resuscitate; Z87.891 Personal history of nicotine dependence
CPT/HCPCS: 36600; 71010; 71275; 80048; 80053; 80061; 80202; 81001; 82550; 82552; 82728; 82805; 82948; 83036; 83540; 83550; 83605; 83735; 83880; 84484; 85002; 85007; 85025; 85027; 85379; 85610; 85730; 87040; 87070; 87205; 87449; 93005; 93306; 93458; 94002; 94060; 94150; 94620; 94640; 94664; 94667; 94668; 96365; 96366; 96375; C1769; C1893; J0456; J0692; J1644; J1940; J2250; J2920; J3010; J3370; J7050; J7512; Q9967

== ENCOUNTER → 2016-12-03 | Outpatient (CLI) | payer MEDICARE, OTHER ==
[~2016-12-03] MED LIST changes: +ALPR0.5T3 PO; +ASPI325T PO; +ASPI81CH CHEW; +AZIT500T2 PO; +CARV3.125 PO; +FERR325T PO; +FURO20TA PO; +LIPI20TA PO; +LISI-519 PO; +MUCI600T PO; -MULT-6 PO; +MULTTAB67 PO; +PRED10PA PO; +SPIR25TA PO; +TIOT12.9 INH; +VITA250T3 PO
[2016-12-03 16:10] LABS: HEMATOCRIT 33.1 % (35.0-46.0); MEAN CELL VOLUME 60.9 FL (80.0-100.0); MEAN CORPUSCULAR HGB CONC 31.2 % (32.0-36.0); PLATELET COUNT 468 TH/MM3 (150-450); RED BLOOD COUNT 5.44 MIL/MM3 (4.00-5.30); RED CELL DISTRIBUTION WIDTH 16.8 % (11.6-17.2)
[2016-12-03 16:14] LABS: REVIEW FLAG FINAL
== END ==
LOC: PLAB 12:24
PROVIDERS: ATTEND Family Medicine
DX: D50.8 Other iron deficiency anemias (principal)
CPT/HCPCS: 36415; 85027

== ENCOUNTER → 2016-12-21 | Outpatient (CLI) | payer MEDICARE ==
[~2016-12-21] MED LIST changes: -ASPI81CH CHEW; -AZIT500T2 PO; -MUCI600T PO; -PRED10PA PO
[2016-12-21 09:56] LABS: BICARBONATE 28.8 MEQ/L (21.0-32.0)
[2016-12-21 09:57] LABS: POTASSIUM 4.6 MEQ/L (3.5-5.1)
== END ==
LOC: PLAB 08:18
PROVIDERS: ATTEND Nuclear Medicine Nuclear Cardiology
DX: N17.9 Acute kidney failure, unspecified (principal); I25.10 Atherosclerotic heart disease of native coronary artery without angina pectoris; I21.4 Non-ST elevation (NSTEMI) myocardial infarction; I50.20 Unspecified systolic (congestive) heart failure
CPT/HCPCS: 36415; 80048; 83880

== ENCOUNTER → 2017-01-25 | Outpatient (CLI) | payer MEDICARE ==
[2017-01-25 13:29] LABS: MEAN CELL VOLUME 62.1 FL (80.0-100.0); MEAN CORPUSCULAR HEMOGLOBIN 20.1 PG (27.0-34.0); MEAN CORPUSCULAR HGB CONC 32.4 % (32.0-36.0); PLATELET COUNT 582 TH/MM3 (150-450); RED BLOOD COUNT 4.83 MIL/MM3 (4.00-5.30); WHITE BLOOD COUNT 21.4 TH/MM3 (4.0-11.0)
[2017-01-25 13:30] LABS: REVIEW FLAG FINAL
[2017-01-25 13:31] LABS: ANION GAP 9 MEQ/L (5-15); AST (GOT) 21 U/L (15-37); BICARBONATE 26.8 MEQ/L (21.0-32.0); BLOOD UREA NITROGEN 38 MG/DL (7-18); CHLORIDE 104 MEQ/L (98-107); GLOMERULAR FILTRATION RATE 44 ML/MIN (>89); POTASSIUM 4.8 MEQ/L (3.5-5.1); SODIUM (NA) 140 MEQ/L (136-145)
[2017-01-25 13:41] LABS: ALKALINE PHOSPHATASE 65 U/L (45-117); ALT (GPT) 23 U/L (10-53); GLUCOSE,FASTING 78 MG/DL (74-99); HDL CHOLESTEROL 61.7 MG/DL (40.0-60.0); LDL CHOLESTEROL 43 MG/DL (0-99); TOTAL BILIRUBIN ADULT 0.4 MG/DL (0.2-1.0); TRANSFERRIN IRON PROFILE 254 MG/DL (200-360)
== END ==
LOC: PLAB 09:06
PROVIDERS: ATTEND Family Medicine
DX: I25.10 Atherosclerotic heart disease of native coronary artery without angina pectoris (principal); D50.8 Other iron deficiency anemias; N28.9 Disorder of kidney and ureter, unspecified
CPT/HCPCS: 36415; 80053; 80061; 83540; 83550; 85027

== ENCOUNTER → 2017-06-14 | Outpatient (CLI) | payer MEDICARE ==
[~2017-06-14] MED LIST changes: -ADVA100A INH; -FERR325T PO; +OCUVTAB4 PO; -PRESCAP5 PO; +UMEC1AER INH; -VITA250T3 PO
[2017-06-14 13:34] LABS: HEMATOCRIT 32.5 % (35.0-46.0); MEAN CELL VOLUME 62.5 FL (80.0-100.0); MEAN CORPUSCULAR HEMOGLOBIN 19.7 PG (27.0-34.0); MEAN CORPUSCULAR HGB CONC 31.5 % (32.0-36.0); PLATELET COUNT 426 TH/MM3 (150-450); RED BLOOD COUNT 5.21 MIL/MM3 (4.00-5.30); RED CELL DISTRIBUTION WIDTH 17.9 % (11.6-17.2); REVIEW FLAG FINAL; WHITE BLOOD COUNT 12.6 TH/MM3 (4.0-11.0)
[2017-06-14 13:45] LABS: ANION GAP 6 MEQ/L (5-15); AST (GOT) 21 U/L (15-37); BICARBONATE 28.4 MEQ/L (21.0-32.0); BLOOD UREA NITROGEN 22 MG/DL (7-18); CHLORIDE 105 MEQ/L (98-107); GLOMERULAR FILTRATION RATE 57 ML/MIN (>89); GLUCOSE,FASTING 79 MG/DL (74-99); POTASSIUM 4.7 MEQ/L (3.5-5.1); SODIUM (NA) 139 MEQ/L (136-145)
[2017-06-14 13:54] LABS: ALKALINE PHOSPHATASE 67 U/L (45-117); ALT (GPT) 19 U/L (10-53); HDL CHOLESTEROL 68.6 MG/DL (40.0-60.0); LDL CHOLESTEROL 34 MG/DL (0-99); TOTAL BILIRUBIN ADULT 0.6 MG/DL (0.2-1.0)
== END ==
LOC: PLAB 08:20
PROVIDERS: ATTEND Family Medicine
DX: I25.10 Atherosclerotic heart disease of native coronary artery without angina pectoris (principal); D50.8 Other iron deficiency anemias
CPT/HCPCS: 36415; 80053; 80061; 85027